=== PATIENT | male | born 1965 | race American Indian/Alaskan Native ===

== ENCOUNTER 2021-03-14 09:58 | Inpatient (IN) | payer SELFPAY ==
[2021-03-14] MEDS ORDERED: LORazepam 2 MG/ML VIAL IV ONE (10:05)
[2021-03-14] MEDS ORDERED: ALBUTEROL 2.5 MG/3 ML NEBU IH ONE (10:06)
[2021-03-14] MEDS ORDERED: IPRATROPIUM 0.02% NEBU 2.5 ML IH ONE (10:06)
[2021-03-14] MEDS ORDERED: MAGNESIUM SULFATE 2 GM/50 ML BAG IV ONE (10:06)
[2021-03-14] MEDS ORDERED: FUROSEMIDE 40 MG/4 ML INJ IV ONE (10:07)
--- NOTE | 2021-03-14 10:13 | Emergency Department Report ---
ED Shortness of Breath HPI - General Stated Complaint: RESPIRATORY DISTRESS Time Seen by Provider: 03/14/21 10:04 Source: patient, EMS Limitations: No Limitations - History of Present Illness Initial Comments: CC: shortness of breath HPI: This is a 55-year-old male with history of hypertension noncompliant medication presents with severe shortness of breath for several days. EMS was called. Severe work of breathing, noted tripod position per EMS. Oxygen saturation 57%. With nonrebreather oxygen sats improved to 91%. However patient had a "look of impending doom" due to paramedics. Patient became agitated and disoriented. He is now able to answer questions with oxygen in place. He is not vaccinated against COVID-19. He does not take any medication. His mother smokes cigarettes. He does not smoke cigarettes. He drinks alcohol daily. Patient received 125 mg of Solu-Medrol via EMS. MD Complaint: shortness of breath, cough -: Gradual, days(s) (3 days) Severity: severe Improves With: oxygen Known History Of: other (Untreated hypertension) Associated Symptoms: cough - Related Data Allergies Allergy/AdvReac Type Severity Reaction Status Date / Time No Known Allergies Allergy Unverified 03/14/21 10:11 ED Review of Systems ROS: Stated complaint: RESPIRATORY DISTRESS Other details as noted in HPI Comment: All other systems reviewed and negative Constitutional: malaise. denies: fever Respiratory: cough, shortness of breath, wheezing Cardiovascular: denies: chest pain Gastrointestinal: denies: abdominal pain, nausea, vomiting ED Past Medical Hx - Past Medical History Previous Medical History?: Yes Hx Hypertension: Yes - Surgical History Past Surgical History?: No - Family History Family history: hypertension - Social History Smoking Status: Never Smoker Substance Use Type: Alcohol ED Physical Exam - General General appearance: alert, in distress, other (Severe work of breathing, poor eye contact, accessory muscle use evident, abdominal retractions) - Head Head exam: Present: atraumatic, normocephalic - Eye Eye exam: Present: normal appearance - ENT ENT exam: Present: mucous membranes moist - Neck Neck exam: Present: normal inspection, full ROM. Absent: tenderness, meningismus - Respiratory Respiratory exam: Present: respiratory distress, rales, rhonchi, accessory muscle use, decreased breath sounds, prolonged expiratory - Cardiovascular Cardiovascular Exam: Present: normal rhythm, tachycardia, normal heart sounds. Absent: systolic murmur, diastolic murmur, rubs, gallop - GI/Abdominal GI/Abdominal exam: Present: soft, other (Abdominal retractions). Absent: distended, tenderness, guarding - Rectal Rectal exam: Present: deferred - Extremities Exam Extremities exam: Present: pedal edema, other (Hyperpigmentation lower legs) - Neurological Exam Neurological exam: Present: altered, other (Oriented to name only) - Psychiatric Psychiatric exam: Present: flat affect - Skin Skin exam: Present: pallor, other (Clammy) ED Course Vital Signs 03/14/21 03/14/21 03/14/21 10:04 10:08 10:16 Temperature 98.9 F Pulse Rate 105 H 107 H Pulse Rate [ Anterior Bilateral Throughout] Respiratory 41 H 24 Rate Respiratory Rate [Anterior Bilateral Throughout] Blood Pressure 179/92 Blood Pressure 178/88 [Right] O2 Sat by Pulse 97 99 Oximetry 03/14/21 03/14/21 03/14/21 10:18 10:20 10:22 Temperature Pulse Rate 105 H 104 H 103 H Pulse Rate [ Anterior Bilateral Throughout] Respiratory 19 18 39 H Rate Respiratory Rate [Anterior Bilateral Throughout] Blood Pressure 179/92 179/92 179/92 Blood Pressure [Right] O2 Sat by Pulse 99 99 98 Oximetry 03/14/21 03/14/21 03/14/21 10:24 10:26 10:28 Temperature Pulse Rate 105 H 104 H 106 H Pulse Rate [ Anterior Bilateral Throughout] Respiratory 26 H 22 23 Rate Respiratory Rate [Anterior Bilateral Throughout] Blood Pressure 179/92 179/92 179/92 Blood Pressure [Right] O2 Sat by Pulse 98 99 98 Oximetry 03/14/21 03/14/21 03/14/21 10:30 10:31 10:32 Temperature Pulse Rate 107 H 107 H 106 H Pulse Rate [ Anterior Bilateral Throughout] Respiratory 17 21 24 Rate Respiratory Rate [Anterior Bilateral Throughout] Blood Pressure 179/92 206/101 206/101 Blood Pressure [Right] O2 Sat by Pulse 98 97 98 Oximetry 03/14/21 03/14/21 03/14/21 10:34 10:35 10:36 Temperature Pulse Rate 107 H 108 H Pulse Rate [ 108 H Anterior Bilateral Throughout] Respiratory 14 25 H Rate Respiratory 34 H Rate [Anterior Bilateral Throughout] Blood Pressure 206/101 206/101 Blood Pressure [Right] O2 Sat by Pulse 97 98 Oximetry 03/14/21 03/14/21 03/14/21 10:38 10:40 10:42 Temperature Pulse Rate 108 H 108 H 109 H Pulse Rate [ Anterior Bilateral Throughout] Respiratory 16 14 17 Rate Respiratory Rate [Anterior Bilateral Throughout] Blood Pressure 206/101 206/101 206/101 Blood Pressure [Right] O2 Sat by Pulse 98 98 97 Oximetry 03/14/21 03/14/21 03/14/21 10:44 10:46 10:48 Temperature Pulse Rate 108 H 109 H 109 H Pulse Rate [ Anterior Bilateral Throughout] Respiratory 24 19 15 Rate Respiratory Rate [Anterior Bilateral Throughout] Blood Pressure 206/101 206/101 206/101 Blood Pressure [Right] O2 Sat by Pulse 97 97 97 Oximetry 03/14/21 03/14/21 03/14/21 10:50 10:52 10:54 Temperature Pulse Rate 107 H 108 H 108 H Pulse Rate [ Anterior Bilateral Throughout] Respiratory 13 16 19 Rate Respiratory Rate [Anterior Bilateral Throughout] Blood Pressure 206/101 206/101 206/101 Blood Pressure [Right] O2 Sat by Pulse 97 97 97 Oximetry 03/14/21 03/14/21 03/14/21 10:56 10:58 11:00 Temperature Pulse Rate 108 H 108 H 108 H Pulse Rate [ Anterior Bilateral Throughout] Respiratory 16 18 21 Rate Respiratory Rate [Anterior Bilateral Throughout] Blood Pressure 206/101 206/101 206/101 Blood Pressure [Right] O2 Sat by Pulse 97 97 97 Oximetry 03/14/21 03/14/21 03/14/21 11:01 11:02 11:04 Temperature Pulse Rate 107 H 109 H 108 H Pulse Rate [ Anterior Bilateral Throughout] Respiratory 20 13 19 Rate Respiratory Rate [Anterior Bilateral Throughout] Blood Pressure 209/99 209/99 209/99 Blood Pressure [Right] O2 Sat by Pulse 96 98 96 Oximetry 03/14/21 03/14/21 03/14/21 11:06 11:08 11:10 Temperature Pulse Rate 108 H 109 H 108 H Pulse Rate [ Anterior Bilateral Throughout] Respiratory 15 24 15 Rate Respiratory Rate [Anterior Bilateral Throughout] Blood Pressure 209/99 209/99 209/99 Blood Pressure [Right] O2 Sat by Pulse 97 97 97 Oximetry 03/14/21 03/14/21 03/14/21 11:12 11:14 11:16 Temperature Pulse Rate 107 H 109 H 108 H Pulse Rate [ Anterior Bilateral Throughout] Respiratory 18 14 23 Rate Respiratory Rate [Anterior Bilateral Throughout] Blood Pressure 209/99 209/99 209/99 Blood Pressure [Right] O2 Sat by Pulse 98 97 98 Oximetry 03/14/21 03/14/21 03/14/21 11:18 11:20 11:22 Temperature Pulse Rate 92 H 90 90 Pulse Rate [ Anterior Bilateral Throughout] Respiratory 17 17 16 Rate Respiratory Rate [Anterior Bilateral Throughout] Blood Pressure 209/99 209/99 209/99 Blood Pressure [Right] O2 Sat by Pulse 97 97 97 Oximetry 03/14/21 03/14/21 03/14/21 11:24 11:26 11:28 Temperature Pulse Rate 90 89 90 Pulse Rate [ Anterior Bilateral Throughout] Respiratory 20 21 20 Rate Respiratory Rate [Anterior Bilateral Throughout] Blood Pressure 209/99 209/99 209/99 Blood Pressure [Right] O2 Sat by Pulse 97 97 97 Oximetry 03/14/21 03/14/21 03/14/21 11:30 11:31 11:32 Temperature Pulse Rate 89 89 90 Pulse Rate [ Anterior Bilateral Throughout] Respiratory 21 22 22 Rate Respiratory Rate [Anterior Bilateral Throughout] Blood Pressure 209/99 134/86 134/86 Blood Pressure [Right] O2 Sat by Pulse 97 96 96 Oximetry 03/14/21 03/14/21 11:34 12:36 Temperature Pulse Rate 89 77 Pulse Rate [ Anterior Bilateral Throughout] Respiratory 20 Rate Respiratory Rate [Anterior Bilateral Throughout] Blood Pressure 134/86 91/52 Blood Pressure [Right] O2 Sat by Pulse 96 100 Oximetry - Reevaluation(s) Reevaluation #1: 03/14/21 12:24 Patient received 2 L normal saline bolus for hypotension suspect volume contraction and iatrogenic effect of labetalol. Blood pressure normalized after bolus. I do not suspect septic shock. patient was actually quite hypertensive on arrival. Reevaluation #2: 03/14/21 13:32 I was called to the bedside for severe hypotension. I immediately ordered dopamine. I asked nurse to prepare for CVL insertion. Reevaluation #3: 03/14/21 13:32 Second ABG shows improvement. pH 7.2, PCO2 71, PO2 97 with persistent respiratory acidosis which is improving My hospitalist colleague Dr. Kang placed right IJ CVL for persistent hypotension. - ABG Interpretation Ph: 6.99 PCO2: 158 PO2: 148 Interpretation: respiratory acidosis - Intubation Time Out Performed: Yes Sedative: Etomidate Mg Given: 20 Mg Given: 2,000 Laryngoscope: Marc Size: 3 ET Tube Size: 7.5 Other Airway Intervention: Video laryngoscopy Tube Secured Depth (cm): 24 Tube Secured Location: lips Tube Placement Confirmation: visualized tube passing t Patient Tolerated Procedure: well Intubation Complications: none ED Medical Decision Making - Lab Data Result diagrams: 03/14/21 10:08 03/14/21 10:54 - EKG Data -: EKG Interpreted by Me EKG shows normal: sinus rhythm Rate: tachycardia - EKG Data 03/14/21 10:27 EKG obtained 0959 EKG interpreted by sc Sinus tachycardia rate 100 bpm abnormal axis no ST elevation nonspecific T wave pattern normal intervals - Radiology Data Radiology results: report reviewed Patient Name: JUSTIN MARTINS Gender: Male Date of : 1965 Referring Provider: PAWEL PEOPLES Organization: [facility] Accession Number: [id number] Requested Date: March 14, 2021 10:05 Report Status: Final Requested Procedure: 1 Procedure Description: XR chest 1V ap Modality: XR Findings Reporting MD: Jay Johnston Dictation Time: March 14, 2021 09:35 [place] Spreader: Not available [place] Date: CHEST 1 VIEW INDICATION: Dyspnea. COMPARISON: None FINDINGS: SUPPORT DEVICES: None. HEART: Cardiomegaly. LUNGS/PLEURA: Mild patchy multifocal airspace disease. ADDITIONAL FINDINGS: None. IMPRESSION: 1. Lung findings as above. Signer Name: Jay Johnston MD Signed: 03/14/2021 9:35 AM Workstation Name: [id number] Patient Name: JUSTIN MARTINS Gender: Male Date of : 1965 Referring Provider: PAWEL PEOPLES Organization: [facility] Accession Number: [id number] Requested Date: March 14, 2021 12:02 Report Status: Final Requested Procedure: 1 Procedure Description: XR chest 1V ap Modality: XR Findings Reporting MD: Russell Robbins Dictation Time: March 14, 2021 11:46 [place] Spreader: Not available [place] Date: CHEST 1 VIEW 03/14/2021 12:30 PM INDICATION / CLINICAL INFORMATION: ETT placement. COMPARISON: Chest radiograph from earlier in the day FINDINGS: SUPPORT DEVICES: There is an endotracheal tube which terminates 2.0 cm from the claudia. There is an enteric tube which terminates distal to the field of view and below the diaphragm. HEART / MEDIASTINUM: No significant abnormality. LUNGS / PLEURA: Redemonstrated not significantly changed airspace opacities. No pneumothorax. ADDITIONAL FINDINGS: No significant additional findings. IMPRESSION: 1. Endotracheal tube in expected position. Signer Name: Russell Robbins DO Signed: 03/14/2021 11:46 AM Workstation Name: [id number] Patient Name: JUSTIN MARTINS Gender: Male Date of : 1965 Referring Provider: PAWEL PEOPLES Organization: [facility] Accession Number: [id number] Requested Date: March 14, 2021 12:18 Report Status: Final Requested Procedure: 1 Procedure Description: XR abdomen 1V ap Modality: XR Findings Reporting MD: Russell Robbins Dictation Time: March 14, 2021 11:47 [place] Spreader: Not available [place] Date: ABDOMEN 1 VIEW 03/14/2021 INDICATION / CLINICAL INFORMATION: ogt. COMPARISON: Chest radiograph from earlier in the day FINDINGS: TUBES / LINES: Enteric tube terminates within the stomach BOWEL GAS PATTERN: No significant abnormality. FREE AIR / EXTRALUMINAL GAS: None seen. ADDITIONAL FINDINGS: Scattered airspace opacities appear unchanged. IMPRESSION: 1. Enteric tube terminating within the stomach. Signer Name: Russell Robbins DO Signed: 03/14/2021 11:47 AM Workstation Name: [id number] - Medical Decision Making Acute respiratory failure hypoxia with delayed sequence intubation. BiPAP allowed adequate oxygenation. Normalization of vital signs. ABG revealed severe respiratory acidosis. Multifocal pneumonia suspected COVID-19 infection with profound hypoxia. Broad-spectrum antibiotics Zosyn vancomycin ordered to cover possible bacterial pneumonia. Patient received IV steroids. EMS. Ngoc ent received continuous nebulizer therapy albuterol and treatment prior to intubation. Admitted to CCU. - Differential Diagnosis Congestive heart failure Critical Care Time: Yes Critical care time in (mins) excluding proc time.: 40 Critical care attestation.: If time is entered above; I have spent that time in minutes in the direct care of this critically ill patient, excluding procedure time. 40 minutes of critical care time excluding procedures were used in the care of the patient. I came immediately to the bedside upon patient's arrival. I obtained history from EMS at the bedside. I discussed treatment plan with the nursing team members. I reviewed electronic record. Patient required multiple interventions and reassessments. ED Disposition Clinical Impression: Acute respiratory failure with hypoxia and hypercapnia, Multifocal pneumonia, Suspected COVID-19 virus infection Disposition: ADMITTED INPATIENT Is pt being admited?: Yes Does the pt Need Aspirin: No Condition: Critical
--- NOTE | 2021-03-14 10:39 | XRay Report ---
CHEST 1 VIEW INDICATION: Dyspnea. COMPARISON: None FINDINGS: SUPPORT DEVICES: None. HEART: Cardiomegaly. LUNGS/PLEURA: Mild patchy multifocal airspace disease. ADDITIONAL FINDINGS: None. IMPRESSION: 1. Lung findings as above. Signer Name: Jay Johnston MD Signed: 03/14/2021 10:35 AM Workstation Name: [id number]
[2021-03-14 10:49] LABS: Eosinophils % (Auto) 0.1 % (0.0-4.3); Hematocrit 48.5 % (35.5-45.6); Hemoglobin 14.2 gm/dl (11.8-15.2); Lymphocytes # (Auto) 1.1 K/mm3 (1.2-5.4); Lymphocytes % (Auto) 9.5 % (13.4-35.0); Mean Corpuscular HGB Conc 29 % (32-34); Mean Corpuscular Volume 73 fl (84-94); Monocytes # (Auto) 1.3 K/mm3 (0.0-0.8); Monocytes % (Auto) 11.4 % (0.0-7.3); Platelet Count 212 K/mm3 (140-440); Red Blood Count 6.66 M/mm3 (3.65-5.03)
[2021-03-14 10:55] LABS: Albumin 3.8 g/dL (3.9-5); BUN/Creatinine Ratio 26; Blood Urea Nitrogen 37 mg/dL (9-20); Calcium 8.1 mg/dL (8.4-10.2); Hemolysis Index 6
[2021-03-14 11:09] LABS: Alanine Aminotransferase 1404 units/L (7-56)
[2021-03-14 11:33] LABS: C-Reactive Protein 7.6 mg/dL (0.00-1.30)
[2021-03-14 11:37] LABS: ABG Base Excess 0.8 mmol/L (-2.0-3.0); ABG HCO3 37.6 mmol/L (20.0-26.0); ABG Methemoglobin 0.7 % (0.0-1.5); ABG Oxygen Saturation 97.6 % (95.0-99.0); ABG PCO2 158.2 mm Hg; ABG PO2 148.4 mm Hg (80.0-90.0)
[2021-03-14 11:40] LABS: ABG PH 6.994 pH Units (7.350-7.450)
[2021-03-14] MEDS ORDERED: SUCCINYLCHOLINE CHLORIDE 200 MG/10 ML INJ MDV ONE (11:43)
[2021-03-14] MEDS ORDERED: ETOMIDATE 20 MG/10 ML INJ IV ONE (11:45)
[2021-03-14] MEDS ORDERED: MIDAZOLAM 5 MG/5 ML INJ MDV IV ONE (11:57)
[2021-03-14] MEDS ORDERED: fentaNYL DRIP Premix 2,000 MCG/100 ML BAG IV ONE ×2 (11:58→17:01)
[2021-03-14] MEDS ORDERED: MIDAZOLAM 2 MG/2 ML INJ IV PRN ×2 (12:02→21:21)
[2021-03-14] MEDS ORDERED: fentaNYL 100 MCG/2 ML INJ IV PRN ×2 (12:02→21:23)
[2021-03-14] MEDS ORDERED: LIP THERAPY VASELINE TP PRN (12:02)
[2021-03-14] MEDS ORDERED: MINERAL OIL/PETROLATUM, WHITE OPHTH OINT 3.5 GM OU PRN (12:02)
--- NOTE | 2021-03-14 12:02 | History and Physical Report ---
History of Present Illness Chief complaint: I cannot breathe History of present illness: 55 YO Male with HTN, Obesity Hypoventilation Syndrome, ETOH Dependence, Medication Noncompliance lost to outpatient follow-up presents to ED for evaluation. Patient is intubated and on ventilatory support at time of my evaluation is unable to provide history. Patient history taken from EMS staff, ED staff, as well as from the patient upon arrival. Patient reports "I cannot breathe". EMS was notified and upon arrival the patient was found to be in distress and subsequent transported to [facility] for further care and evaluation of the aforementioned symptoms. The patient was seen and evaluated in the emergency department. All lab and imaging studies reviewed. Patient was found to be in able to complete sentences due to shortness of breath, tripoding, using accessory muscles to breathe. The patient was found to have a pulse oximetry of 57% on room air which is consistent with acute hypoxemic respiratory failure. Patient placed on nonrebreather mask with mild improvement in symptoms. Patient subsequently intubated and placed on ventilatory support. Chest x-ray revealed bilateral pneumonia complicated by sepsis, acute kidney injury. Patient admitted to ICU and initiated on sepsis protocol, pneumonia protocol, as well as coronavirus protocol. Patient found to have alcohol dependence and also initiated on CIWA protocol. Patient found to have poor prognosis. No prior admission for review. No medication listed at time of admission reconciliation. Advanced care planning conducted in ED. No further history is obtainable. Past History Past Medical History: hypertension, other (See HPI) Past Surgical History: No surgical history, Other (Reviewed) Social history: single, alcohol abuse Family history: diabetes, hypertension Medications and Allergies Allergies Allergy/AdvReac Type Severity Reaction Status Date / Time No Known Allergies Allergy Unverified 03/14/21 10:11 Review of Systems ROS unobtainable: due to endotracheal tube, due to mental status Exam - Constitutional Vitals: Temp Pulse Resp BP Pulse Ox 98.9 F 89 20 134/86 96 03/14/21 10:08 03/14/21 11:34 03/14/21 11:34 03/14/21 11:34 03/14/21 11:34 General appearance: Present: severe distress - EENT Eyes: Present: miosis ENT: hearing decreased - Neck Neck: Present: supple - Respiratory Respiratory effort: labored, accessory muscle use, stridor Respiratory: bilateral: diminished, rhonchi - Cardiovascular Rhythm: other (Tachycardia) Heart Sounds: Present: S1 & S2. Absent: rub, click - Extremities Extremity abnormal: edema Peripheral Pulses: abnormal (Capillary refill greater than 3.5 seconds) - Abdominal General gastrointestinal: Present: soft, non-tender, non-distended, normal bowel sounds Male genitourinary: Present: normal - Integumentary Integumentary: Present: warm, dry, clammy, decreased turgor - Musculoskeletal Musculoskeletal: generalized weakness - Psychiatric Psychiatric: no appropriate mood/affect, no intact judgment & insight, no memory intact - Neurologic Neurologic: CNII-XII intact, no focal deficits, moves all extremities, no gait normal HEART Score - HEART Score Troponin: Troponin T 0.029 ng/mL (0.00-0.029) 03/14/21 10:08 Results - Labs CBC & Chem 7: 03/14/21 10:08 03/14/21 10:54 Labs: Abnormal lab results 03/14/21 03/14/21 03/14/21 Range/Units 10:02 10:08 10:08 WBC 11.6 H (4.5-11.0) K/mm3 RBC 6.66 H (3.65-5.03) M/mm3 Hct 48.5 H (35.5-45.6) % MCV 73 L (84-94) fl MCH 21 L (28-32) pg MCHC 29 L (32-34) % RDW 19.0 H (13.2-15.2) % Lymph % (Auto) 9.5 L (13.4-35.0) % [place] % (Auto) 11.4 H (0.0-7.3) % Lymph # (Auto) 1.1 L (1.2-5.4) K/mm3 [place] # (Auto) 1.3 H (0.0-0.8) K/mm3 Seg Neutrophils % 79.0 H (40.0-70.0) % Seg Neutrophils # 9.2 H (1.8-7.7) K/mm3 D-Dimer (0-234) ng/mlDDU ABG pH (7.350-7.450) pH Units ABG pO2 (80.0-90.0) mm Hg ABG HCO3 (20.0-26.0) mmol/L Oxyhemoglobin (95.0-99.0) % Potassium 5.8 H (3.6-5.0) mmol/L BUN 37 H (9-20) mg/dL Creatinine 1.4 H (0.8-1.3) mg/dL Glucose 133 H (75-100) mg/dL POC Glucose 128 H (70-105) mg/dL Calcium 8.1 L (8.4-10.2) mg/dL AST 1574 H (5-40) units/L ALT 1404 H (7-56) units/L Lactate Dehydrogenase (91-180) units/L C-Reactive Protein (0.00-1.30) mg/dL NT-Pro-B Natriuret Pep (0-900) pg/mL Albumin 3.8 L (3.9-5) g/dL 03/14/21 03/14/21 03/14/21 Range/Units 10:08 10:08 10:54 WBC (4.5-11.0) K/mm3 RBC (3.65-5.03) M/mm3 Hct (35.5-45.6) % MCV (84-94) fl MCH (28-32) pg MCHC (32-34) % RDW (13.2-15.2) % Lymph % (Auto) (13.4-35.0) % [place] % (Auto) (0.0-7.3) % Lymph # (Auto) (1.2-5.4) K/mm3 [place] # (Auto) (0.0-0.8) K/mm3 Seg Neutrophils % (40.0-70.0) % Seg Neutrophils # (1.8-7.7) K/mm3 D-Dimer 1938.22 H (0-234) ng/mlDDU ABG pH (7.350-7.450) pH Units ABG pO2 (80.0-90.0) mm Hg ABG HCO3 (20.0-26.0) mmol/L Oxyhemoglobin (95.0-99.0) % Potassium (3.6-5.0) mmol/L BUN (9-20) mg/dL Creatinine (0.8-1.3) mg/dL Glucose 162 H (75-100) mg/dL POC Glucose (70-105) mg/dL Calcium (8.4-10.2) mg/dL AST (5-40) units/L ALT (7-56) units/L Lactate Dehydrogenase 1456 H (91-180) units/L C-Reactive Protein 7.60 H (0.00-1.30) mg/dL NT-Pro-B Natriuret Pep 1073 H (0-900) pg/mL Albumin (3.9-5) g/dL 03/14/21 Range/Units 11:10 WBC (4.5-11.0) K/mm3 RBC (3.65-5.03) M/mm3 Hct (35.5-45.6) % MCV (84-94) fl MCH (28-32) pg MCHC (32-34) % RDW (13.2-15.2) % Lymph % (Auto) (13.4-35.0) % [place] % (Auto) (0.0-7.3) % Lymph # (Auto) (1.2-5.4) K/mm3 [place] # (Auto) (0.0-0.8) K/mm3 Seg Neutrophils % (40.0-70.0) % Seg Neutrophils # (1.8-7.7) K/mm3 D-Dimer (0-234) ng/mlDDU ABG pH 6.994 L* (7.350-7.450) pH Units ABG pO2 148.4 H (80.0-90.0) mm Hg ABG HCO3 37.6 H (20.0-26.0) mmol/L Oxyhemoglobin 94.9 L (95.0-99.0) % Potassium (3.6-5.0) mmol/L BUN (9-20) mg/dL Creatinine (0.8-1.3) mg/dL Glucose (75-100) mg/dL POC Glucose (70-105) mg/dL Calcium (8.4-10.2) mg/dL AST (5-40) units/L ALT (7-56) units/L Lactate Dehydrogenase (91-180) units/L C-Reactive Protein (0.00-1.30) mg/dL NT-Pro-B Natriuret Pep (0-900) pg/mL Albumin (3.9-5) g/dL Assessment and Plan - Patient Problems (1) Sepsis Current Visit: Yes Status: Acute Qualifiers: Sepsis acute organ dysfunction status: with acute organ dysfunction Severe sepsis acute organ dysfunction type: acute respiratory failure Acute respiratory failure type: with hypoxia Plan to address problem: Sepsis protocol: CBC, CMP, chest x-ray, urinalysis, IV antibiotic therapy, IV fluid resuscitation therapy, serial lactic acid level, monitor urine output every shift, maintain mean arterial pressure greater than or equal to 65, blood culture. The high probability of a clinically significant, sudden or life threatening deterioration of the [pulmonary, neuro, cardiac, renal, infectious disease] system(s) required my full and direct attention, intervention and personal management. The aggregate critical care time was [90] minutes. This time is in addition to time spent performing reported procedures but includes the fol lowing: [x] Data Review and interpretation [x] Patient assessment and monitoring of vital signs [x] Documentation [x] Medication orders and management (2) Acute respiratory failure with hypoxia and hypercapnia Current Visit: Yes Status: Acute Plan to address problem: Chest x-ray, wean vent as tolerated, spontaneous breathing trial daily, sedation holiday, pulmonary toilet, prone positioning while in bed as per nursing capability. (3) Alcohol dependence Current Visit: Yes Status: Acute Qualifiers: Substance use status: uncomplicated Qualified Code(s): F10.20 - Alcohol dependence, uncomplicated Plan to address problem: CIWA protocol, banana bag, supportive care. (4) Multifocal pneumonia Current Visit: Yes Status: Acute Plan to address problem: Pneumonia protocol: Chest x-ray, CBC, CMP, IV antibiotic therapy, blood culture, (5) Suspected COVID-19 virus infection Current Visit: Yes Status: Acute Plan to address problem: Coronavirus protocol: IV antibiotic therapy, IV steroid therapy, continue ventilatory support and wean vent as tolerated, vitamin C therapy, vitamin D therapy, zinc therapy, prophylactic anticoagulation (6) Obesity hypoventilation syndrome Current Visit: Yes Status: Acute Plan to address problem: Balanced diet, increase physical activity discharge, outpatient pulmonary follow-up for sleep study. (7) DVT prophylaxis Current Visit: Yes Status: Acute Plan to address problem: SCD to bilateral lower extremities while in bed, prophylactic anticoagulation (8) Advance care planning Current Visit: Yes Status: Acute Plan to address problem: Disease education conducted, care plan discussed, diagnoses discussed, patient is full code, patient has poor prognosis, +30 minutes.
[2021-03-14] MEDS ORDERED: ALBUTEROL 2.5 MG/3 ML NEBU IH PRN (12:04)
[2021-03-14] MEDS ORDERED: MORPHINE 2 MG/1 ML INJ IV PRN (12:04)
[2021-03-14] MEDS ORDERED: HYDROmorphone 1 MG/1 ML INJ IV PRN ×2 (12:04→12:09)
[2021-03-14] MEDS ORDERED: SODIUM CHLORIDE 0.9% 1000 ML 1,000 ML IV ONE ×4 (12:04→12:59)
[2021-03-14] MEDS ORDERED: SODIUM CHLORIDE 0.9% 1000 ML 2,000 ML ONE (12:05)
[2021-03-14] MEDS ORDERED: CEFEPIME/NS 2 GM/100 ML 2 GM/100 ML BAG IV ONE (12:06)
[2021-03-14] MEDS ORDERED: ACETAMINOPHEN 325 MG TAB PO PRN (12:09)
--- NOTE | 2021-03-14 12:51 | XRay Report ---
CHEST 1 VIEW 03/14/2021 12:30 PM INDICATION / CLINICAL INFORMATION: ETT placement. COMPARISON: Chest radiograph from earlier in the day FINDINGS: SUPPORT DEVICES: There is an endotracheal tube which terminates 2.0 cm from the claudia. There is an e nteric tube which terminates distal to the field of view and below the diaphragm. HEART / MEDIASTINUM: No significant abnormality. LUNGS / PLEURA: Redemonstrated not significantly changed airspace opacities. No pneumothorax. ADDITIONAL FINDINGS: No significant additional findings. IMPRESSION: 1. Endotracheal tube in expected position. Signer Name: Russell Robbins DO Signed: 03/14/2021 12:46 PM Workstation Name: [id number]
--- NOTE | 2021-03-14 12:51 | XRay Report ---
ABDOMEN 1 VIEW 03/14/2021 INDICATION / CLINICAL INFORMATION: ogt. COMPARISON: Chest radiograph from earlier in the day FINDINGS: TUBES / LINES: Enteric tube terminates within the stomach BOWEL GAS PATTERN: No significant abnormality. FREE AIR / EXTRALUMINAL GAS: None seen. ADDITIONAL FINDINGS: Scattered airspace opacities appear unchanged. IMPRESSION: 1. Enteric tube terminating within the stomach. Signer Name: Russell Robbins DO Signed: 03/14/2021 12:47 PM Workstation Name: [id number]
[2021-03-14] MEDS: fentaNYL DRIP Premix 2,000 MCG/100 ML BAG IV SCH ×3 (12:55→21:40)
[2021-03-14] MEDS ORDERED: DOPamine/D5W 800 MG/250 ML 800 MG/250 ML BAG IV ONE ×2 (12:58→12:59)
[2021-03-14] MEDS ORDERED: THIAMINE 100 MG, FOLIC ACID 1 MG, MULTIPLE VITAMIN INJ, ADULT 10 ML in SODIUM CHLORIDE ... IV ONE (13:00)
[2021-03-14] MEDS ORDERED: VANCOMYCIN PHARMACY TO DOSE IV SCH (13:00)
[2021-03-14] MEDS ORDERED: VANCOMYCIN 2,000 MG in SODIUM CHLORIDE 0.9% 500 ML 500 ML IV ONE (13:00)
[2021-03-14] MEDS ORDERED: MIDAZOLAM 100 MG in SODIUM CHLORIDE 0.9% 80 ML IV SCH (13:00)
[2021-03-14] MEDS ORDERED: SODIUM CHLORIDE 0.9% 1000 ML IV SOLN IV ONE (13:00)
[2021-03-14 13:11] LABS: ABG Base Excess -0.7 mmol/L (-2.0-3.0); ABG HCO3 28.6 mmol/L (20.0-26.0); ABG Methemoglobin 0.7 % (0.0-1.5); ABG Oxygen Saturation 96.4 % (95.0-99.0); ABG PCO2 71.8 mm Hg; ABG PH 7.219 pH Units (7.350-7.450); ABG PO2 97.8 mm Hg (80.0-90.0)
[2021-03-14] MEDS: FAMOTIDINE 20 MG/2 ML INJ IV SCH ×2 (13:36→21:46)
[2021-03-14] MEDS: cefTRIAXone/NS 2 GM/100 ML 2 GM/100 ML BAG IV SCH (13:51)
[2021-03-14] MEDS: SENNOSIDES/DOCUSATE SODIUM 8.6/50 MG TAB FEEDTUBE SCH ×2 (13:52→21:43)
[2021-03-14] MEDS: AZITHROMYCIN/NS 500 MG/250 ML 500 MG/250 ML BAG IV SCH (13:52)
--- NOTE | 2021-03-14 13:53 | Procedure Note ---
Date of procedure: 03/14/21 Pre-op diagnosis: sepsis Post-op diagnosis: same Procedure: Right internal jugular vein triple-lumen catheter placement under ultrasound guidance The patient was prepped and draped in the usual sterile fashion. A timeout was taken to verify the correct patient, correct procedure, and the correct operative site. The Seldinger technique was utilized to access the right internal jugular vein without difficulty. Local anesthesia with lidocaine 1% was utilized to anesthetize the skin. Ultrasound was used to localize the right internal jugular vein and a seeker needle was used under ultrasound guidance to access the right internal jugular vein without difficulty. A guidewire was then advanced to the right internal jugular vein and the seeker needle removed over the guidewire. A scalpel was used to incise the skin at the insertion site. A dilator was then passed over the guidewire into the right internal jugular vein and subsequently removed. A preflushed triple-lumen catheter was then advanced into the right internal jugular vein over the guidewire and the guidewire subsequently removed. The triple-lumen was sewn in place with 3-0 nylon suture. A Biopatch was placed at the insertion site. All 3 ports flush and draw with ease. Specimens none complications none blood loss minimal. Postoperative chest x-ray reveals central line in good position without evidence of pneumothorax. Estimated blood loss: minimal Pathology: none Condition: critical Disposition: ICU
--- NOTE | 2021-03-14 14:07 | XRay Report ---
CHEST 1 VIEW 03/14/2021 1:00 PM INDICATION / CLINICAL INFORMATION: Central line placement. COMPARISON: 03/14/2021 FINDINGS: SUPPORT DEVICES: Interval placement of a right IJ central venous catheter with the tip in the upper S VC. Unchanged positioning of endotracheal tube. Unchanged positioning of enteric tube. HEART / MEDIASTINUM: Stable. LUNGS / PLEURA: No significant change in airspace opacities No pneumothorax. ADDITIONAL FINDINGS: No significant additional findings. IMPRESSION: 1. Central line in expected position. Signer Name: Russell Robbins DO Signed: 03/14/2021 2:02 PM Workstation Name: [id number]
[2021-03-14] MEDS: methylPREDNISolone Sod Succinate 40 MG/1 ML INJ IV SCH ×2 (14:27→21:46)
[2021-03-14 15:20] LABS: Bilirubin,Urine Negative (Negative); Blood,Urine Small (Negative); Color,Urine Straw (Yellow)
[2021-03-14] MEDS: ZINC SULFATE 220 MG CAP PO SCH (21:43)
[2021-03-14] MEDS: ASCORBIC ACID 500 MG TAB PO SCH (21:43)
[2021-03-14] MEDS: HEPARIN 5,000 UNIT/1 ML VIAL SUB-Q SCH (21:46)
[2021-03-15] MEDS ORDERED: VANCOMYCIN/NS 1 GM/250 ML 1 GM/250 ML BAG IV SCH (01:00)
--- NOTE | 2021-03-15 04:12 | XRay Report ---
CHEST 1 VIEW 03/15/2021 3:26 AM INDICATION / CLINICAL INFORMATION: follow up respiratory failure. COMPARISON: 03/14/21 FINDINGS: SUPPORT DEVICES: Unchanged. HEART / MEDIASTINUM: Stable. LUNGS / PLEURA: Patchy bilateral pulmonary opacities are unchanged. No pneumothorax. ADDITIONAL FINDINGS: No significant additional findings. IMPRESSION: 1. No significant change. Signer Name: Elise Kong MD Signed: 03/15/2021 4:07 AM Workstation Name: [id number]
[2021-03-15] MEDS: methylPREDNISolone Sod Succinate 40 MG/1 ML INJ IV SCH ×3 (05:40→21:46)
[2021-03-15 08:13] LABS: Basophils % (Auto) 0.1 % (0.0-1.8); Lymphocytes # (Auto) 0.5 K/mm3 (1.2-5.4); Lymphocytes % (Auto) 4.4 % (13.4-35.0); Mean Corpuscular HGB Conc 30 % (32-34); Mean Corpuscular Volume 71 fl (84-94); Monocytes # (Auto) 0.7 K/mm3 (0.0-0.8); Monocytes % (Auto) 6.5 % (0.0-7.3); Red Blood Count 6.73 M/mm3 (3.65-5.03); Red Cell Distribution Width 18.2 % (13.2-15.2)
[2021-03-15] MEDS: LORazepam 2 MG/ML VIAL IV PRN (08:13)
[2021-03-15] MEDS: MIDAZOLAM 100 MG in SODIUM CHLORIDE 0.9% 80 ML IV SCH (08:13)
[2021-03-15] MEDS: fentaNYL DRIP Premix 2,000 MCG/100 ML BAG IV SCH ×2 (08:13→19:07)
[2021-03-15 08:14] LABS: Hematocrit 47.7 % (35.5-45.6); Hemoglobin 14.1 gm/dl (11.8-15.2)
[2021-03-15 08:15] LABS: Platelet Count 159 K/mm3 (140-440)
[2021-03-15 08:32] LABS: BUN/Creatinine Ratio 27; Blood Urea Nitrogen 27 mg/dL (9-20); Calcium 8.1 mg/dL (8.4-10.2); Hemolysis Index 22
--- NOTE | 2021-03-15 08:59 | Consultation ---
History of Present Illness History of present illness: This is a 55 yo male with hx of OHS who is admitted with shortness of breath and hypoxia. As per records, he hasbeen noncompliant w meds. He came in the er w c/o of sob and was found to have sat of 57%. He was intubated. He is presently on vent sedated on versed and fentanyl.. Also on dopamine. He ia also reported to have hx of alcohol abuse He was noted to have bilat pneumonia. Covid and pneumonia protocol were started as per hosp. note Past History Past Medical History: hypertension, other (ohs) Past Surgical History: No surgical history, Other (Reviewed) Social history: single, alcohol abuse Family history: diabetes, hypertension Medications and Allergies Allergies Allergy/AdvReac Type Severity Reaction Status Date / Time No Known Allergies Allergy Verified 03/14/21 17:55 Active Meds: Active Medications Acetaminophen (Acetaminophen 325 Mg Tab) 650 mg PO Q6H PRN PRN Reason: Pain MILD(1-3)/Fever >100.5/BAUMAN Albuterol (Albuterol 2.5 Mg/3 Ml Nebu) 2.5 mg IH Q3H PRN PRN Reason: Shortness Of Breath Ascorbic Acid (Ascorbic Acid 500 Mg Tab) 500 mg PO BID [facility] Last Admin: 03/14/21 21:43 Dose: Not Given Documented by: Cholecalciferol (Cholecalciferol (Vit D3) 1000 Unit (25 Mcg) Tab) 1,000 unit PO DAILY [facility] Famotidine (Famotidine 20 Mg/2 Ml Inj) 20 mg IV BID [facility] Last Admin: 03/14/21 21:46 Dose: 20 mg Documented by: Fentanyl (Fentanyl 100 Mcg/2 Ml Inj) 50 mcg IV Q10MIN PRN PRN Reason: ANALGESIA Heparin Sodium (Porcine) (Heparin 5,000 Unit/1 Ml Vial) 5,000 unit SUB-Q Q12HR [facility] Last Admin: 03/14/21 21:46 Dose: 5,000 unit Documented by: Hydrophilic Ointment (Lip Therapy Vaseline) 1 applic TP Q2HR PRN PRN Reason: Dry Lips Azithromycin (Zithromax/Ns) 500 mg in 250 mls @ 250 mls/hr IV Q24H [facility]; Protocol Last Admin: 03/14/21 13:52 Dose: Not Given Documented by: Ceftriaxone Sodium (Rocephin/Ns 2 Gm/100 Ml) 2 gm in 100 mls @ 200 mls/hr IV Q24H [facility]; Protocol Last Admin: 03/14/21 13:51 Dose: Not Given Documented by: Vancomycin HCl (Vancomycin/Ns 1 Gm/250 Ml) 1 gm in 250 mls @ 166.667 mls/hr IV Q12H [facility] Last Admin: 03/15/21 03:33 Dose: 166.667 mls/hr Documented by: Midazolam HCl 100 mg/ Sodium (Chloride) 100 mls @ 1 mls/hr IV TITR [facility]; Prot ocol Last Admin: 03/15/21 08:13 Dose: 4 mg/hr, 4 mls/hr Documented by: Fentanyl Citrate (Fentanyl Drip Premix) 2,000 mcg in 100 mls @ 5.465 mls/hr IV TITR [facility]; Protocol Last Admin: 03/15/21 08:13 Dose: 1 mcg/kg/hr, 5.465 mls/hr Documented by: Lorazepam (Lorazepam 2 Mg/Ml Vial) 2 mg IV Q1H PRN PRN Reason: CIWA-Ar 8-15 Last Admin: 03/15/21 08:13 Dose: 2 mg Documented by: Methylprednisolone Sodium Succinate (Methylprednisolone Sod Succinate 40 Mg/1 Ml Inj) 40 mg IV Q8H [facility] Last Admin: 03/15/21 05:40 Dose: 40 mg Documented by: Midazolam HCl (Midazolam 2 Mg/2 Ml Inj) 2 mg IV Q10MIN PRN PRN Reason: Sedation Multi-Ingred Cream/Lotion/Oil/Oint (Mineral Oil/Petrolatum, White Ophth Oint 3.5 Gm) 1 applic OU Q4HR PRN PRN Reason: Dry Eye(s) Senna/Docusate Sodium (Sennosides/Docusate Sodium 8.6/50 Mg Tab) 1 tab FEEDTUBE BID [facility] Last Admin: 03/14/21 21:43 Dose: Not Given Documented by: Sodium Chloride (Sodium Chloride 0.9% 10 Ml Flush Syringe) 10 ml IV BID [facility] Last Admin: 03/14/21 21:51 Dose: 10 ml Documented by: Sodium Chloride (Sodium Chloride 0.9% 10 Ml Flush Syringe) 10 ml IV PRN PRN PRN Reason: LINE FLUSH Zinc Sulfate (Zinc Sulfate 220 Mg Cap) 220 mg PO BID [facility] Last Admin: 03/14/21 21:43 Dose: Not Given Documented by: Review of Systems ROS unobtainable: due to endotracheal tube Physical Examination Vital signs: Vital Signs Pulse Resp Pulse Ox 105 H 41 H 97 03/14/21 10:04 03/14/21 10:04 03/14/21 10:04 General appearance: other (on vent AC 75% r 24 tv 500 p 8 mv 12) Results - Laboratory Findings CBC and BMP: 03/15/21 07:30 03/15/21 07:30 ABG ABG pH 7.555 (7.320-7.450) H 03/15/21 03:07 POC ABG pCO2 37.2 mmHg (32.0-48.0) 03/15/21 03:07 ABG pCO2 71.8 mm Hg 03/14/21 12:10 POC ABG pO2 92.9 mmHg (83-108) 03/15/21 03:07 ABG pO2 97.8 mm Hg (80.0-90.0) H 03/14/21 12:10 POC ABG HCO3 32.2 03/15/21 03:07 ABG O2 Saturation 98.0 (0-100) 03/15/21 03:07 PT/INR, D-dimer D-Dimer 1938.22 ng/mlDDU (0-234) H 03/14/21 10:08 Abnormal lab findings: Abnormal Labs 03/14/21 03/14/21 03/14/21 10:02 10:08 10:08 WBC 11.6 H RBC 6.66 H Hct 48.5 H MCV 73 L MCH 21 L MCHC 29 L RDW 19.0 H Lymph % (Auto) 9.5 L [place] % (Auto) 11.4 H Lymph # (Auto) 1.1 L [place] # (Auto) 1.3 H Seg Neutrophils % 79.0 H Seg Neutrophils # 9.2 H D-Dimer ABG pH ABG pO2 ABG HCO3 ABG Hemoglobin ABG Glucose Oxyhemoglobin Potassium 5.8 H BUN 37 H Creatinine 1.4 H Glucose 133 H POC Glucose 128 H Lactic Acid Calcium 8.1 L AST 1574 H ALT 1404 H Lactate Dehydrogenase C-Reactive Protein NT-Pro-B Natriuret Pep Albumin 3.8 L Arterial Blood Glucose Urine Blood 03/14/21 03/14/21 03/14/21 10:08 10:08 10:54 WBC RBC Hct MCV MCH MCHC RDW Lymph % (Auto) [place] % (Auto) Lymph # (Auto) [place] # (Auto) Seg Neutrophils % Seg Neutrophils # D-Dimer 1938.22 H ABG pH ABG pO2 ABG HCO3 ABG Hemoglobin ABG Glucose Oxyhemoglobin Potassium BUN Creatinine Glucose 162 H POC Glucose Lactic Acid Calcium AST ALT Lactate Dehydrogenase 1456 H C-Reactive Protein 7.60 H NT-Pro-B Natriuret Pep 1073 H Albumin Arterial Blood Glucose Urine Blood 03/14/21 03/14/21 03/14/21 11:10 12:10 13:02 WBC RBC Hct MCV MCH MCHC RDW Lymph % (Auto) [place] % (Auto) Lymph # (Auto) [place] # (Auto) Seg Neutrophils % Seg Neutrophils # D-Dimer ABG pH 6.994 L* 7.219 L ABG pO2 148.4 H 97.8 H ABG HCO3 37.6 H 28.6 H ABG Hemoglobin 12.9 L ABG Glucose Oxyhemoglobin 94.9 L 94.0 L Potassium BUN Creatinine Glucose POC Glucose Lactic Acid 2.20 H* Calcium AST ALT Lactate Dehydrogenase C-Reactive Protein NT-Pro-B Natriuret Pep Albumin Arterial Blood Glucose Urine Blood 03/14/21 03/15/21 03/15/21 14:39 03:07 07:30 WBC 11.3 H RBC 6.73 H Hct 47.7 H MCV 71 L MCH 21 L MCHC 30 L RDW 18.2 H Lymph % (Auto) 4.4 L [place] % (Auto) Lymph # (Auto) 0.5 L [place] # (Auto) Seg Neutrophils % 89.0 H Seg Neutrophils # 10.1 H D-Dimer ABG pH 7.555 H ABG pO2 ABG HCO3 ABG Hemoglobin ABG Glucose 127 H Oxyhemoglobin Potassium BUN Creatinine Glucose POC Glucose Lactic Acid Calcium AST ALT Lactate Dehydrogenase C-Reactive Protein NT-Pro-B Natriuret Pep Albumin Arterial Blood Glucose 127 H Urine Blood Small A 03/15/21 07:30 WBC RBC Hct MCV MCH MCHC RDW Lymph % (Auto) [place] % (Auto) Lymph # (Auto) [place] # (Auto) Seg Neutrophils % Seg Neutrophils # D-Dimer ABG pH ABG pO2 ABG HCO3 ABG Hemoglobin ABG Glucose Oxyhemoglobin Potassium BUN 27 H Creatinine Glucose 115 H POC Glucose Lactic Acid Calcium 8.1 L AST ALT Lactate Dehydrogenase C-Reactive Protein NT-Pro-B Natriuret Pep Albumin Arterial Blood Glucose Urine Blood - Diagnostic Findings Chest x-ray: report reviewed, image reviewed (bilat opacities diann bernard) Assessment and Plan - Patient Problems (1) Acute respiratory failure with hypoxia and hypercapnia Current Visit: Yes Status: Acute (2) Multifocal pneumonia Current Visit: Yes Status: Acute (3) Obesity hypoventilation syndrome Current Visit: Yes Status: Acute (4) Sepsis Current Visit: Yes Status: Acute Qualifiers: Sepsis acute organ dysfunction status: with acute organ dysfunction Severe sepsis acute organ dysfunction type: acute respiratory failure Acute respiratory failure type: with hypoxia (5) Suspected COVID-19 virus infection Current Visit: Yes Status: Acute (6) Lactic acidosis Current Visit: Yes Status: Acute (7) Renal insufficiency Current Visit: Yes Status: Acute
[2021-03-15] MEDS ORDERED: CHOLECALCIFEROL (VIT D3) 400 UNIT TAB PO SCH (10:00)
[2021-03-15] MEDS: SENNOSIDES/DOCUSATE SODIUM 8.6/50 MG TAB FEEDTUBE SCH ×2 (10:03→21:47)
[2021-03-15] MEDS: ASCORBIC ACID 500 MG TAB PO SCH ×2 (10:03→21:48)
[2021-03-15] MEDS: FAMOTIDINE 20 MG/2 ML INJ IV SCH ×2 (10:03→21:47)
[2021-03-15] MEDS: HEPARIN 5,000 UNIT/1 ML VIAL SUB-Q SCH ×2 (10:04→21:46)
[2021-03-15] MEDS: ZINC SULFATE 220 MG CAP PO SCH ×2 (10:04→21:48)
[2021-03-15] MEDS: CHOLECALCIFEROL (VIT D3) 1000 UNIT (25 mcg) TAB PO SCH (10:05)
[2021-03-15] MEDS: SODIUM CHLORIDE 0.9% 1000 ML 1,000 ML IV SCH ×2 (10:31→21:50)
[2021-03-15] MEDS ORDERED: SODIUM BICARBONATE 325 MG TAB FEEDTUBE PRN (11:15)
[2021-03-15] MEDS ORDERED: SIMPLE SYRUP 15 ML FEEDTUBE PRN ×2 (11:15)
[2021-03-15] MEDS ORDERED: LIPASE 10,500/PROTEASE 25,000/AMYLASE 43,750 (UNITS) DR CAP FEEDTUBE PRN (11:15)
[2021-03-15] MEDS: AZITHROMYCIN/NS 500 MG/250 ML 500 MG/250 ML BAG IV SCH (14:10)
[2021-03-15] MEDS: cefTRIAXone/NS 2 GM/100 ML 2 GM/100 ML BAG IV SCH (14:10)
--- NOTE | 2021-03-15 14:45 | Consultation ---
History of Present Illness - Reason for Consult Consult date: 03/15/21 - History of Present Illness 55-year-old man past medical history hypertension obesity, alcohol dependence was in the hospital in respiratory distress. He was intubated on admission, and remained as such. He was admitted as Covid PUI, no other history is obtainable. Afebrile, white count 11.3. Covid negative normal renal function, elevated procalcitonin. He on ceftriaxone and azithromycin with methylprednisolone. Imaging personally reviewed: Chest x-ray: Pulmonary bialteral pulmonary opacities. Review of systems: Deferred to reduce to the risk of transmission of COVID-19 Past History Past Medical History: hypertension, other (ohs) Past Surgical History: No surgical history, Other (Reviewed) Social history: single, alcohol abuse Family history: diabetes, hypertension Medications and Allergies Allergies Allergy/AdvReac Type Severity Reaction Status Date / Time No Known Allergies Allergy Verified 03/14/21 17:55 Active Meds: Active Medications Acetaminophen (Acetaminophen 325 Mg Tab) 650 mg PO Q6H PRN PRN Reason: Pain MILD(1-3)/Fever >100.5/BAUMAN Albuterol (Albuterol 2.5 Mg/3 Ml Nebu) 2.5 mg IH Q3H PRN PRN Reason: Shortness Of Breath Lipase/Protease/Amylase (Lipase 10,500/Protease 25,000/Amylase 43,750 (Units) Dr Mata) 1 each FEEDTUBE PRN PRN PRN Reason: For Clogged Feeding Tube Ascorbic Acid (Ascorbic Acid 500 Mg Tab) 500 mg PO BID [facility] Last Admin: 03/15/21 10:03 Dose: 500 mg Documented by: Cholecalciferol (Cholecalciferol (Vit D3) 1000 Unit (25 Mcg) Tab) 1,000 unit PO DAILY [facility] Last Admin: 03/15/21 10:05 Dose: 1,000 unit Documented by: Famotidine (Famotidine 20 Mg/2 Ml Inj) 20 mg IV BID [facility] Last Admin: 03/15/21 10:03 Dose: 20 mg Documented by: Fentanyl (Fentanyl 100 Mcg/2 Ml Inj) 50 mcg IV Q10MIN PRN PRN Reason: ANALGESIA Heparin Sodium (Porcine) (Heparin 5,000 Unit/1 Ml Vial) 5,000 unit SUB-Q Q12HR [facility] Last Admin: 03/15/21 10:04 Dose: 5,000 unit Documented by: Hydrophilic Ointment (Lip Therapy Vaseline) 1 applic TP Q2HR PRN PRN Reason: Dry Lips Azithromycin (Zithromax/Ns) 500 mg in 250 mls @ 250 mls/hr IV Q24H [facility]; Protocol Last Admin: 03/15/21 14:10 Dose: 250 mls/hr Documented by: Ceftriaxone Sodium (Rocephin/Ns 2 Gm/100 Ml) 2 gm in 100 mls @ 200 mls/hr IV Q24H [facility]; Protocol Last Admin: 03/15/21 14:10 Dose: 200 mls/hr Documented by: Midazolam HCl 100 mg/ Sodium (Chloride) 100 mls @ 1 mls/hr IV TITR [facility]; Protocol Last Admin: 03/15/21 08:13 Dose: 4 mg/hr, 4 mls/hr Documented by: Fentanyl Citrate (Fentanyl Drip Premix) 2,000 mcg in 100 mls @ 5.465 mls/hr IV TITR [facility]; Protocol Last Admin: 03/15/21 08:13 Dose: 1 mcg/kg/hr, 5.465 mls/hr Documented by: Sodium Chloride (Nacl 0.9% 1000 Ml) 1,000 mls @ 100 mls/hr IV DIRECT [facility] Last Admin: 03/15/21 10:31 Dose: 100 mls/hr Documented by: Lorazepam (Lorazepam 2 Mg/Ml Vial) 2 mg IV Q1H PRN PRN Reason: CIWA-Ar 8-15 Last Admin: 03/15/21 08:13 Dose: 2 mg Documented by: Methylprednisolone Sodium Succinate (Methylprednisolone Sod Succinate 40 Mg/1 Ml Inj) 40 mg IV Q8H [facility] Last Admin: 03/15/21 14:11 Dose: 40 mg Documented by: Midazolam HCl (Midazolam 2 Mg/2 Ml Inj) 2 mg IV Q10MIN PRN PRN Reason: Sedation Multi-Ingred Cream/Lotion/Oil/Oint (Mineral Oil/Petrolatum, White Ophth Oint 3.5 Gm) 1 applic OU Q4HR PRN PRN Reason: Dry Eye(s) Senna/Docusate Sodium (Sennosides/Docusate Sodium 8.6/50 Mg Tab) 1 tab FEEDTUBE BID [facility] Last Admin: 03/15/21 10:03 Dose: 1 tab Documented by: Simple Syrup (Simple Syrup 15 Ml) 15 ml FEEDTUBE PRN PRN PRN Reason: Hypoglycemia Simple Syrup (Simple Syrup 15 Ml) 30 ml FEEDTUBE PRN PRN PRN Reason: Hypoglycemia Sodium Bicarbonate (Sodium Bicarbonate 325 Mg Tab) 325 mg FEEDTUBE PRN PRN PRN Reason: For Clogged Feeding Tube Sodium Chloride (Sodium Chloride 0.9% 10 Ml Flush Syringe) 10 ml IV BID [facility] Last Admin: 03/15/21 10:05 Dose: 10 ml Documented by: Sodium Chloride (Sodium Chloride 0.9% 10 Ml Flush Syringe) 10 ml IV PRN PRN PRN Reason: LINE FLUSH Zinc Sulfate (Zinc Sulfate 220 Mg Cap) 220 mg PO BID [facility] Last Admin: 03/15/21 10:04 Dose: 220 mg Documented by: Physical Examination - Physical Exam Narrative exam: Physical exam deferred to reduce risk of transmission of COVID-19. Please refer to primary team's note. - Constitutional Vitals: Vital Signs Temp Pulse Resp BP Pulse Ox 98.8 F 80 24 118/74 97 03/15/21 07:26 03/15/21 11:00 03/15/21 11:00 03/15/21 11:00 03/15/21 11:00 Temperature -Last 24 Hours Temperature 98.8 F Temperature 99.3 F Temperature 99.1 F Temperature 98.3 F Temperature 97.8 F Results - Labs CBC & Chem 7: 03/15/21 07:30 03/15/21 07:30 Labs: Abnormal lab results 03/14/21 03/15/21 03/15/21 Range/Units 14:39 03:07 07:30 WBC 11.3 H (4.5-11.0) K/mm3 RBC 6.73 H (3.65-5.03) M/mm3 Hct 47.7 H (35.5-45.6) % MCV 71 L (84-94) fl MCH 21 L (28-32) pg MCHC 30 L (32-34) % RDW 18.2 H (13.2-15.2) % Lymph % (Auto) 4.4 L (13.4-35.0) % Lymph # (Auto) 0.5 L (1.2-5.4) K/mm3 Seg Neutrophils % 89.0 H (40.0-70.0) % Seg Neutrophils # 10.1 H (1.8-7.7) K/mm3 ABG pH 7.555 H (7.320-7.450) ABG Glucose 127 H (65-95) mg/dL BUN (9-20) mg/dL Glucose (75-100) mg/dL Calcium (8.4-10.2) mg/dL Arterial Blood Glucose 127 H (65-95) mg/dL Urine Blood Small A (Negative) 03/15/21 Range/Units 07:30 WBC (4.5-11.0) K/mm3 RBC (3.65-5.03) M/mm3 Hct (35.5-45.6) % MCV (84-94) fl MCH (28-32) pg MCHC (32-34) % RDW (13.2-15.2) % Lymph % (Auto) (13.4-35.0) % Lymph # (Auto) (1.2-5.4) K/mm3 Seg Neutrophils % (40.0-70.0) % Seg Neutrophils # (1.8-7.7) K/mm3 ABG pH (7.320-7.450) ABG Glucose (65-95) mg/dL BUN 27 H (9-20) mg/dL Glucose 115 H (75-100) mg/dL Calcium 8.1 L (8.4-10.2) mg/dL Arterial Blood Glucose (65-95) mg/dL Urine Blood (Negative) Assessment and Plan Cultures: Blood culture no growth so far. A/P: 55-year-old man past medical history hypertension obesity, alcohol dependence admitted as COVID PUI #COVID PUI: recommend repeat PCR testing tomorrow given CXR findings consistent with COVID #Acute hypoxic respiratory failure: PNA vs COVID #Obesity #EtOH dependence Recs: -Continue ceftriaxone and azithromycin for now given elevated procalcitonin -Check repeat COVID CPR tomorrow -If positive would start remdesivir and Actemra if CRP >7.5 -Anticoagulation per hospital protocol. Thank you for the consult, we will continue to follow. MD Shai Sanchez [facility] O: [phone] F: [phone]
--- NOTE | 2021-03-15 19:15 | Progress Note ---
<DEV HIGGINS - Last Filed: 03/15/21 19:41> Assessment and Plan Assessment and plan: This is a [id number] male with past medical history of HTN, Obesity Hypoventilation Syndrome, ETOH Dependence, and noncompliance with meds who came in via EMS due to respiratory distress and hypoxia. Patient was intubated in the ED due to acute hypoxic respiratory failure. Patient was admitted in the ICU for further management. Hospital Course to Date: 03/15/21- Patient is on the vent and sedated. Off dopamine, maintaining MAP above 65. Titrate sedation for RASS goal 0 to -2. Continue hydration with NS @100ml/hr. Enteral nutrition initiated. Assessment and Plan #Acute Metabolic Encephalopathy #ETOH Dependence - Patient is intubated and sedated - On versed and Fentanyl, RASS -4 to -5 - Titrate sedation for RASS goal of 0 to -2 - Daily SAT and SBT per CCM - Avoid benzodiazepine's, reduce the possibility of delirium - Prn analgesia for CPOT greater than 3 - Maintenance of sleep-wake cycle #CV:Hypotension #Septic Shock #Metabolic Acidosis- improved #Lactic Acidosis- resolved - Was on dopamine gtt in the ED, now on hold - Normotensive now - Received Sepsis Bolus in the ED - Acidosis improved - Maintain adequate perfusion - IVF added, NS at 100ml/hr - Continue blood pressure monitor per protocol - Maintain MAP above 65 - Consider Levophed vs dopamine if hypotensive - Continue AC- Hep SubQ and SCDs for VTE proph #Acute Hypoxic Respiratory Failure 2/2 PNA vs COVID PNA #COVID PUI - 03/14 CXR- Patchy bilateral pulmonary opacities - 03/15 CXR- No significant change - COVID swab pending - Intubated on 03/14 - Vent Setting: PRVC- 75%,8,24,500 - AM ABG noted - CCM consulted, appreciate recommendations - VAP bundle addressed - Aspiration precaution HOB above 30 - Daily SBT and SAT trials as tolerated - Daily ABG and CXR - Continue SPO2 monitoring for SPO2 goal above 92% #GI: TF - Enteral nutrition intiated - Nutrition on consult - Continue IVF - Continue BR- senokot - Continue PPI- Pepcid #: NAP - Initial Cr. 1.4, 1.0 this am - Strict intake and output - Avoid nephrotoxic medications; Renally dose medications - Benton in place, net -5.6 in last 24hrs - Continue IVF for now - Monitor and replace electrolytes as needed #ID:Sepsis #Lactic Acidosis- resolved #Metabolic Acidosis- resolved #CAP #COVID PUI - 03/14 CXR- Patchy bilateral pulmonary opacities - 03/15 CXR- No significant change - COVID swab pending - 02/11 B.CultX2 with no conrad as to date; 02/11 Sputum Cult pending - Lactic down from 2.2---> 1.80 - Wbcs 11.3 today, patient remains afebrile - Procal 2.73, CRP 7.60 - Continue IV ABx- Rocephin and Azithromycin per ID - Continue to F/U on B.cult - Daily CBC monitor - ID on consult #Endo:Glycemic Control - POCT Q6hrs while on TF - While critically ill target blood glucose of 140-180 - Avoid hypoglycemia History Interval history: Patient is seen and examined at the bedside. Intubated and sedated on versed and fentanyl, RASS -4 to -5. Patient is no longer on pressors Hospitalist Physical - Constitutional Vitals: Temp Pulse Resp BP Pulse Ox 100.2 F H 86 24 115/65 92 03/15/21 15:52 03/15/21 19:00 03/15/21 19:00 03/15/21 19:00 03/15/21 19:00 General appearance: Present: no acute distress, other (Intubated and sedated) - EENT Eyes: Present: PERRL - Respiratory Respiratory effort: normal Respiratory: bilateral: diminished - Cardiovascular Rhythm: regular Heart Sounds: Present: S1 & S2 - Extremities Extremities: no ischemia, pulses intact, pulses symmetrical Extremity abnormal: edema - Peripheral Assessment Generalized Edema Type: Non-pitting Capillary Refill: < 3 seconds Skin Temperature: Warm Peripheral Pulses: within normal limits - Abdominal General gastrointestinal: soft, non-tender, hypoactive bowel sounds - Integumentary Integumentary: Present: clear, warm, dry - Psychiatric Psychiatric: other (Intubated and sedated) - Neurologic Neurologic: other (Intubated and sedated) - Allied Health Allied health notes reviewed: nursing HEART Score - HEART Score Troponin: Troponin T 0.029 ng/mL (0.00-0.029) 03/14/21 10:08 Results - Labs CBC & Chem 7: 03/15/21 07:30 03/15/21 07:30 Labs: Laboratory Last Values WBC 11.3 K/mm3 (4.5-11.0) H 03/15/21 07:30 RBC 6.73 M/mm3 (3.65-5.03) H 03/15/21 07:30 Hgb 14.1 gm/dl (11.8-15.2) 03/15/21 07:30 Hct 47.7 % (35.5-45.6) H 03/15/21 07:30 MCV 71 fl (84-94) L 03/15/21 07:30 MCH 21 pg (28-32) L 03/15/21 07:30 MCHC 30 % (32-34) L 03/15/21 07:30 RDW 18.2 % (13.2-15.2) H 03/15/21 07:30 Plt Count 159 K/mm3 (140-440) 03/15/21 07:30 Lymph % (Auto) 4.4 % (13.4-35.0) L 03/15/21 07:30 [place] % (Auto) 6.5 % (0.0-7.3) 03/15/21 07:30 Eos % (Auto) 0.0 % (0.0-4.3) 03/15/21 07:30 Baso % (Auto) 0.1 % (0.0-1.8) 03/15/21 07:30 Lymph # (Auto) 0.5 K/mm3 (1.2-5.4) L 03/15/21 07:30 [place] # (Auto) 0.7 K/mm3 (0.0-0.8) 03/15/21 07:30 Eos # (Auto) 0.0 K/mm3 (0.0-0.4) 03/15/21 07:30 Baso # (Auto) 0.0 K/mm3 (0.0-0.1) 03/15/21 07:30 Seg Neutrophils % 89.0 % (40.0-70.0) H 03/15/21 07:30 Seg Neutrophils # 10.1 K/mm3 (1.8-7.7) H 03/15/21 07:30 D-Dimer 1938.22 ng/mlDDU (0-234) H 03/14/21 10:08 ABG pH 7.555 (7.320-7.450) H 03/15/21 03:07 POC ABG pCO2 37.2 mmHg (32.0-48.0) 03/15/21 03:07 ABG pCO2 71.8 mm Hg 03/14/21 12:10 POC ABG pO2 92.9 mmHg (83-108) 03/15/21 03:07 ABG pO2 97.8 mm Hg (80.0-90.0) H 03/14/21 12:10 POC ABG HCO3 32.2 03/15/21 03:07 ABG HCO3 28.6 mmol/L (20.0-26.0) H 03/14/21 12:10 ABG O2 Saturation 98.0 (0-100) 03/15/21 03:07 ABG O2 Content 17.1 (0.0-44) 03/14/21 12:10 POC ABG Base Excess 9.4 03/15/21 03:07 ABG Base Excess -0.7 mmol/L (-2.0-3.0) 03/14/21 12:10 ABG Hemoglobin 15.2 (12.0-17.5) 03/15/21 03:07 ABG Oxyhemoglobin 97.3 (94-98) 03/15/21 03:07 ABG Carboxyhemoglobin 1.9 % (0.0-5.0) 03/14/21 12:10 ABG Methemoglobin 0 (0.0-1.5) 03/15/21 03:07 ABG Sodium 136.9 mmol/L (136.0-145.0) 03/15/21 03:07 ABG Potassium 4.5 mmol/L (3.40-4.50) 03/15/21 03:07 ABG Chloride 105.0 mmol/L (98-107) 03/15/21 03:07 ABG Glucose 127 mg/dL (65-95) H 03/15/21 03:07 Oxyhemoglobin 94.0 % (95.0-99.0) L 03/14/21 12:10 Carboxyhemoglobin 0.7 (0.5-1.5) 03/15/21 03:07 FiO2 100 % 03/14/21 12:10 FiO2 % 85.0 03/15/21 03:07 Sodium 145 mmol/L (137-145) 03/15/21 07:30 Potassium 4.7 mmol/L (3.6-5.0) 03/15/21 07:30 Chloride 105.5 mmol/L (98-107) 03/15/21 07:30 Carbon Dioxide 29 mmol/L (22-30) 03/15/21 07:30 Anion Gap 15 mmol/L 03/15/21 07:30 BUN 27 mg/dL (9-20) H 03/15/21 07:30 Creatinine 1.0 mg/dL (0.8-1.3) 03/15/21 07:30 Estimated GFR > 60 ml/min 03/15/21 07:30 BUN/Creatinine Ratio 27 % 03/15/21 07:30 Glucose 115 mg/dL (75-100) H 03/15/21 07:30 POC Glucose 129 mg/dL (70-105) H 03/15/21 17:12 Lactic Acid 1.80 mmol/L (0.7-2.0) 03/14/21 23:38 Calcium 8.1 mg/dL (8.4-10.2) L 03/15/21 07:30 Ferritin 46.5 ng/mL (30.0-300.0) 03/14/21 10:54 Total Bilirubin 0.90 mg/dL (0.1-1.2) 03/14/21 10:08 AST 1574 units/L (5-40) H 03/14/21 10:08 ALT 1404 units/L (7-56) H 03/14/21 10:08 Alkaline Phosphatase 124 units/L (35-129) 03/14/21 10:08 Lactate Dehydrogenase 1456 units/L (91-180) H 03/14/21 10:54 Troponin T 0.029 ng/mL (0.00-0.029) 03/14/21 10:08 C-Reactive Protein 7.60 mg/dL (0.00-1.30) H 03/14/21 10:54 NT-Pro-B Natriuret Pep 1073 pg/mL (0-900) H 03/14/21 10:08 Total Protein 7.6 g/dL (6.3-8.2) 03/14/21 10:08 Albumin 3.8 g/dL (3.9-5) L 03/14/21 10:08 Albumin/Globulin Ratio 1.0 % 03/14/21 10:08 Procalcitonin 2.63 ng/mL (<0.15) 03/14/21 10:54 Arterial Blood Glucose 127 mg/dL (65-95) H 03/15/21 03:07 Urine Color Straw (Yellow) 03/14/21 14:39 Urine Turbidity Clear (Clear) 03/14/21 14:39 Urine pH 6.0 (5.0-7.0) 03/14/21 14:39 Ur Specific [place] 1.010 (1.003-1.030) 03/14/21 14:39 Urine Protein 30 mg/dl mg/dL (Negative) 03/14/21 14:39 Urine Glucose (UA) Negative mg/dL (Negative) 03/14/21 14:39 Urine Ketones Negative mg/dL (Negative) 03/14/21 14:39 Urine Blood Small (Negative) A 03/14/21 14:39 Urine Nitrite Negative (Negative) 03/14/21 14:39 Ur Reducing Substances Not Reportable 03/14/21 14:39 Urine Bilirubin Negative (Negative) 03/14/21 14:39 Urine Ictotest Not Reportable 03/14/21 14:39 Urine Urobilinogen Not Reportable 03/14/21 14:39 Ur Leukocyte Esterase Negative (Negative) 03/14/21 14:39 Urine WBC (Auto) 0.0 /HPF (0.0-6.0) 03/14/21 14:39 Urine RBC (Auto) 2.0 /HPF (0.0-6.0) 03/14/21 14:39 U Epithel Cells (Auto) < 1.0 /HPF (0-13.0) 03/14/21 14:39 Coronavirus (PCR) Negative (Negative) 03/15/21 Unknown Blood Type O POSITIVE 03/14/21 13:02 Antibody Screen Negative 03/14/21 13:02 Microbiology: Microbiology 03/14/21 10:08 Peripheral/Venous Blood Culture - Preliminary NO GROWTH AFTER 24 HOURS 03/14/21 10:08 Peripheral/Venous Blood Culture - Preliminary NO GROWTH AFTER 24 HOURS 03/14/21 12:30 Tracheal Aspirate Sputum Culture - Preliminary [place]/IV: Voiding Method Indwelling Catheter Active Medications - Current Medications Current Medications: Generic Name Dose Route Start Last Admin Trade Name Freq PRN Reason Stop Dose Admin Acetaminophen 650 mg 03/14/21 12:04 Acetaminophen 325 Mg Tab PO Q6H PRN Pain MILD(1-3)/Fever >100.5/BAUMAN Albuterol 2.5 mg 03/14/21 12:04 Albuterol 2.5 Mg/3 Ml Nebu IH Q3H PRN Shortness Of Breath Lipase/Protease/Amylase 1 each 03/15/21 11:15 Lipase 10,500/Protease 25,000/Amylase 43,750 (Units) Dr Mata FEEDTUBE PRN PRN For Clogged Feeding Tube Ascorbic Acid 500 mg 03/14/21 22:00 03/15/21 10:03 Ascorbic Acid 500 Mg Tab PO 500 mg BID RAMIRO Administration Cholecalciferol 1,000 unit 03/15/21 10:00 03/15/21 10:05 Cholecalciferol (Vit D3) 1000 Unit (25 Mcg) Tab PO 1,000 unit DAILY RAMIRO Administration Famotidine 20 mg 03/14/21 13:00 03/15/21 10:03 Famotidine 20 Mg/2 Ml Inj IV 20 mg BID RAMIRO Administration Fentanyl 50 mcg 03/14/21 21:23 Fentanyl 100 Mcg/2 Ml Inj IV Q10MIN PRN ANALGESIA Heparin Sodium (Porcine) 5,000 unit 03/14/21 22:00 03/15/21 10:04 Heparin 5,000 Unit/1 Ml Vial SUB-Q 5,000 unit Q12HR RAMIRO Administration Hydrophilic Ointment 1 applic 03/14/21 12:02 Lip Therapy Vaseline TP Q2HR PRN Dry Lips Azithromycin 500 mg in 250 mls @ 250 mls/hr 03/14/21 13:00 03/15/21 14:10 Zithromax/Ns IV 250 mls/hr Q24H RAMIRO Administration Protocol Ceftriaxone Sodium 2 gm in 100 mls @ 200 mls/hr 03/14/21 13:00 03/15/21 14:10 Rocephin/Ns 2 Gm/100 Ml IV 200 mls/hr Q24H RAMIRO Administration Protocol Midazolam HCl 100 mg/ Sodium 100 mls @ 1 mls/hr 03/14/21 22:00 03/15/21 08:13 Chloride IV 4 mg/hr TITR RAMIRO 4 mls/hr Administration Protocol 1 MG/HR Fentanyl Citrate 2,000 mcg in 100 mls @ 5.465 mls/hr 03/14/21 22:00 03/15/21 19:07 Fentanyl Drip Premix IV 2 mcg/kg/hr TITR RAMIRO 10.93 mls/hr Administration Protocol 1 MCG/KG/HR Sodium Chloride 1,000 mls @ 100 mls/hr 03/15/21 10:00 03/15/21 10:31 Nacl 0.9% 1000 Ml IV 100 mls/hr DIRECT RAMIRO Administration Lorazepam 2 mg 03/14/21 12:17 03/15/21 08:13 Lorazepam 2 Mg/Ml Vial IV 2 mg Q1H PRN Administration JUAN-Magdiel 8-15 Methylprednisolone Sodium Succinate 40 mg 03/14/21 13:00 03/15/21 14:11 Methylprednisolone Sod Succinate 40 Mg/1 Ml Inj IV 40 mg Q8H RAMIRO Administration Midazolam HCl 2 mg 03/14/21 21:21 Midazolam 2 Mg/2 Ml Inj IV Q10MIN PRN Sedation Multi-Ingred Cream/Lotion/Oil/Oint 1 applic 03/14/21 12:02 Mineral Oil/Petrolatum, White Ophth Oint 3.5 Gm OU Q4HR PRN Dry Eye(s) Senna/Docusate Sodium 1 tab 03/14/21 13:00 03/15/21 10:03 Sennosides/Docusate Sodium 8.6/50 Mg Tab FEEDTUBE 1 tab BID RAMIRO Administration Simple Syrup 15 ml 03/15/21 11:15 Simple Syrup 15 Ml FEEDTUBE PRN PRN Hypoglycemia Simple Syrup 30 ml 03/15/21 11:15 Simple Syrup 15 Ml FEEDTUBE PRN PRN Hypoglycemia Sodium Bicarbonate 325 mg 03/15/21 11:15 Sodium Bicarbonate 325 Mg Tab FEEDTUBE PRN PRN For Clogged Feeding Tube Sodium Chloride 10 ml 03/14/21 22:00 03/15/21 10:05 Sodium Chloride 0.9% 10 Ml Flush Syringe IV 10 ml BID RAMIRO Administration Sodium Chloride 10 ml 03/14/21 12:04 Sodium Chloride 0.9% 10 Ml Flush Syringe IV PRN PRN LINE FLUSH Zinc Sulfate 220 mg 03/14/21 22:00 03/15/21 10:04 Zinc Sulfate 220 Mg Cap PO 220 mg BID RAMIRO Administration Nutrition/Malnutrition Assess - Dietary Evaluation Nutrition/Malnutrition Findings: Nutrition Notes Start: 03/15/21 11:04 Freq: Status: Active Protocol: Document 03/15/21 11:04 ALTA (Rec: 03/15/21 11:15 ALTA [id number]) Nutrition Notes Need for Assessment 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: 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 Pt intubated; hx of medication noncompliance and on CIWA protocol. Burn Absent Trauma Absent Minimum of two criteria No #1 Nutrition Diagnosis Swallowing difficulty Etiology mech ventilation As Evidenced by Signs and Symptoms pt NPO and requires EN support to meet nutrient needs Is patient on ventilator? Yes Is Patient Ambulatory and/or Out of Bed No REE-([facility]-confined to bed) [phone] Calculation Used for Recommendations 65-70% energy needs Additional Notes Energy needs: 0831-2135 kcal/ day Pro needs >2g/kg IBW: >140g/ day Fluid needs 1ml/kcal Nutrition Intervention Nutrition Support: Vital HP at 65ml/hr with 50ml water flush q4h. Kcal 1,560 Protein (gm) 137 Carbohydrates (gm) 175 Fat (gm) 36 Fluid (mL) 1,304 Fiber (gm) 0 Goal #1 TF tolerance Goal #2 TF (at goal rate) to meet 65- 70% energy and 80-100% pro needs Anticipated Discharge Needs: Unable to identify at this time Follow-Up By: 03/17/21 Additional Comments F/U: new TF, vent status, COVID-19 status <ZHANNA MUNOZ - Last Filed: 03/16/21 10:19> Assessment and Plan Assessment and plan: I saw and evaluated the patient. Discussed with the nurse practitioner and agree with their findings and plan as documented in this note. Hospitalist Physical - Constitutional Vitals: Temp Pulse Resp BP Pulse Ox 99.3 F 68 24 149/86 97 03/16/21 07:32 03/16/21 07:39 03/16/21 06:00 03/16/21 07:39 03/16/21 07:39 HEART Score - HEART Score Troponin: Troponin T 0.029 ng/mL (0.00-0.029) 03/14/21 10:08 Results - Labs CBC & Chem 7: 03/16/21 07:07 03/16/21 04:30 Labs: Laboratory Last Values WBC 10.0 K/mm3 (4.5-11.0) 03/16/21 07:07 RBC 6.56 M/mm3 (3.65-5.03) H 03/16/21 07:07 Hgb 14.2 gm/dl (11.8-15.2) 03/16/21 07:07 Hct 46.3 % (35.5-45.6) H 03/16/21 07:07 MCV 71 fl (84-94) L 03/16/21 07:07 MCH 22 pg (28-32) L 03/16/21 07:07 MCHC 31 % (32-34) L 03/16/21 07:07 RDW 18.1 % (13.2-15.2) H 03/16/21 07:07 Plt Count 109 K/mm3 (140-440) L 03/16/21 07:07 Lymph % (Auto) 4.4 % (13.4-35.0) L 03/15/21 07:30 [place] % (Auto) 6.5 % (0.0-7.3) 03/15/21 07:30 Eos % (Auto) 0.0 % (0.0-4.3) 03/15/21 07:30 Baso % (Auto) 0.1 % (0.0-1.8) 03/15/21 07:30 Lymph # (Auto) 0.5 K/mm3 (1.2-5.4) L 03/15/21 07:30 [place] # (Auto) 0.7 K/mm3 (0.0-0.8) 03/15/21 07:30 Eos # (Auto) 0.0 K/mm3 (0.0-0.4) 03/15/21 07:30 Baso # (Auto) 0.0 K/mm3 (0.0-0.1) 03/15/21 07:30 Seg Neutrophils % 89.0 % (40.0-70.0) H 03/15/21 07:30 Seg Neutrophils # 10.1 K/mm3 (1.8-7.7) H 03/15/21 07:30 D-Dimer 1938.22 ng/mlDDU (0-234) H 03/14/21 10:08 ABG pH 7.450 pH Units (7.350-7.450) 03/16/21 05:15 POC ABG pCO2 37.2 mmHg (32.0-48.0) 03/15/21 03:07 ABG pCO2 42.1 mm Hg 03/16/21 05:15 POC ABG pO2 92.9 mmHg (83-108) 03/15/21 03:07 ABG pO2 101.6 mm Hg (80.0-90.0) H 03/16/21 05:15 POC ABG HCO3 32.2 03/15/21 03:07 ABG HCO3 28.6 mmol/L (20.0-26.0) H 03/16/21 05:15 ABG O2 Saturation 97.8 % (95.0-99.0) 03/16/21 05:15 ABG O2 Content 19.6 (0.0-44) 03/16/21 05:15 POC ABG Base Excess 9.4 03/15/21 03:07 ABG Base Excess 4.2 mmol/L (-2.0-3.0) H 03/16/21 05:15 ABG Hemoglobin 14.5 gm/dl (14.0-18.0) 03/16/21 05:15 ABG Oxyhemoglobin 97.3 (94-98) 03/15/21 03:07 ABG Carboxyhemoglobin 1.4 % (0.0-5.0) 03/16/21 05:15 ABG Methemoglobin 0.6 % (0.0-1.5) 03/16/21 05:15 ABG Sodium 136.9 mmol/L (136.0-145.0) 03/15/21 03:07 ABG Potassium 4.5 mmol/L (3.40-4.50) 03/15/21 03:07 ABG Chloride 105.0 mmol/L (98-107) 03/15/21 03:07 ABG Glucose 127 mg/dL (65-95) H 03/15/21 03:07 Oxyhemoglobin 95.8 % (95.0-99.0) 03/16/21 05:15 Carboxyhemoglobin 0.7 (0.5-1.5) 03/15/21 03:07 FiO2 45 % 03/16/21 05:15 FiO2 % 85.0 03/15/21 03:07 Sodium 145 mmol/L (137-145) 03/16/21 04:30 Potassium 4.3 mmol/L (3.6-5.0) 03/16/21 04:30 Chloride 109.4 mmol/L (98-107) H 03/16/21 04:30 Carbon Dioxide 27 mmol/L (22-30) 03/16/21 04:30 Anion Gap 13 mmol/L 03/16/21 04:30 BUN 33 mg/dL (9-20) H 03/16/21 04:30 Creatinine 1.1 mg/dL (0.8-1.3) 03/16/21 04:30 Estimated GFR > 60 ml/min 03/16/21 04:30 BUN/Creatinine Ratio 30 % 03/16/21 04:30 Glucose 131 mg/dL (75-100) H 03/16/21 04:30 POC Glucose 137 mg/dL (70-105) H 03/16/21 05:42 Lactic Acid 1.80 mmol/L (0.7-2.0) 03/14/21 23:38 Calcium 7.9 mg/dL (8.4-10.2) L 03/16/21 04:30 Phosphorus 3.20 mg/dL (2.5-4.5) 03/16/21 04:30 Magnesium 2.50 mg/dL (1.7-2.3) H 03/16/21 04:30 Ferritin 46.5 ng/mL (30.0-300.0) 03/14/21 10:54 Total Bilirubin 0.90 mg/dL (0.1-1.2) 03/14/21 10:08 AST 1574 units/L (5-40) H 03/14/21 10:08 ALT 1404 units/L (7-56) H 03/14/21 10:08 Alkaline Phosphatase 124 units/L (35-129) 03/14/21 10:08 Lactate Dehydrogenase 1456 units/L (91-180) H 03/14/21 10:54 Troponin T 0.029 ng/mL (0.00-0.029) 03/14/21 10:08 C-Reactive Protein 7.60 mg/dL (0.00-1.30) H 03/14/21 10:54 NT-Pro-B Natriuret Pep 1073 pg/mL (0-900) H 03/14/21 10:08 Total Protein 7.6 g/dL (6.3-8.2) 03/14/21 10:08 Albumin 3.8 g/dL (3.9-5) L 03/14/21 10:08 Albumin/Globulin Ratio 1.0 % 03/14/21 10:08 Procalcitonin 2.63 ng/mL (<0.15) 03/14/21 10:54 Arterial Blood Glucose 127 mg/dL (65-95) H 03/15/21 03:07 Urine Color Straw (Yellow) 03/14/21 14:39 Urine Turbidity Clear (Clear) 03/14/21 14:39 Urine pH 6.0 (5.0-7.0) 03/14/21 14:39 Ur Specific [place] 1.010 (1.003-1.030) 03/14/21 14:39 Urine Protein 30 mg/dl mg/dL (Negative) 03/14/21 14:39 Urine Glucose (UA) Negative mg/dL (Negative) 03/14/21 14:39 Urine Ketones Negative mg/dL (Negative) 03/14/21 14:39 Urine Blood Small (Negative) A 03/14/21 14:39 Urine Nitrite Negative (Negative) 03/14/21 14:39 Ur Reducing Substances Not Reportable 03/14/21 14:39 Urine Bilirubin Negative (Negative) 03/14/21 14:39 Urine Ictotest Not Reportable 03/14/21 14:39 Urine Urobilinogen Not Reportable 03/14/21 14:39 Ur Leukocyte Esterase Negative (Negative) 03/14/21 14:39 Urine WBC (Auto) 0.0 /HPF (0.0-6.0) 03/14/21 14:39 Urine RBC (Auto) 2.0 /HPF (0.0-6.0) 03/14/21 14:39 U Epithel Cells (Auto) < 1.0 /HPF (0-13.0) 03/14/21 14:39 Coronavirus (PCR) Negative (Negative) 03/15/21 Unknown Blood Type O POSITIVE 03/14/21 13:02 Antibody Screen Negative 03/14/21 13:02 Microbiology: Microbiology 03/14/21 10:08 Peripheral/Venous Blood Culture - Preliminary NO GROWTH AFTER 24 HOURS 03/14/21 10:08 Peripheral/Venous Blood Culture - Preliminary NO GROWTH AFTER 24 HOURS 03/14/21 12:30 Tracheal Aspirate Sputum Culture - Preliminary [place]/IV: Voiding Method Indwelling Catheter Active Medications - Current Medications Current Medications: Generic Name Dose Route Start Last Admin Trade Name Freq PRN Reason Stop Dose Admin Acetaminophen 650 mg 03/14/21 12:04 03/16/21 00:27 Acetaminophen 325 Mg Tab PO 650 mg Q6H PRN Administration Pain MILD(1-3)/Fever >100.5/BAUMAN Albuterol 2.5 mg 03/14/21 12:04 Albuterol 2.5 Mg/3 Ml Nebu IH Q3H PRN Shortness Of Breath Lipase/Protease/Amylase 1 each 03/15/21 11:15 Lipase 10,500/Protease 25,000/Amylase 43,750 (Units) Dr Mata FEEDTUBE PRN PRN For Clogged Feeding Tube Ascorbic Acid 500 mg 03/14/21 22:00 03/16/21 09:42 Ascorbic Acid 500 Mg Tab PO 500 mg BID RAMIRO Administration Cholecalciferol 1,000 unit 03/15/21 10:00 03/16/21 09:42 Cholecalciferol (Vit D3) 1000 Unit (25 Mcg) Tab PO 1,000 unit DAILY RAMIRO Administration Famotidine 20 mg 03/16/21 22:00 Famotidine 20 Mg Tab FEEDTUBE BID RAMIRO Fentanyl 50 mcg 03/14/21 21:23 Fentanyl 100 Mcg/2 Ml Inj IV Q10MIN PRN ANALGESIA Heparin Sodium (Porcine) 5,000 unit 03/14/21 22:00 03/16/21 09:42 Heparin 5,000 Unit/1 Ml Vial SUB-Q 5,000 unit Q12HR RAMIRO Administration Hydrophilic Ointment 1 applic 03/14/21 12:02 Lip Therapy Vaseline TP Q2HR PRN Dry Lips Azithromycin 500 mg in 250 mls @ 250 mls/hr 03/14/21 13:00 03/15/21 14:10 Zithromax/Ns IV 250 mls/hr Q24H RAMIRO Administration Protocol Ceftriaxone Sodium 2 gm in 100 mls @ 200 mls/hr 03/14/21 13:00 03/15/21 14:10 Rocephin/Ns 2 Gm/100 Ml IV 200 mls/hr Q24H RAMIRO Administration Protocol Midazolam HCl 100 mg/ Sodium 100 mls @ 1 mls/hr 03/14/21 22:00 03/16/21 09:49 Chloride IV Infused TITR RAMIRO Titration Protocol 1 MG/HR Fentanyl Citrate 2,000 mcg in 100 mls @ 5.465 mls/hr 03/14/21 22:00 03/16/21 04:20 Fentanyl Drip Premix IV 2 mcg/kg/hr TITR RAMIRO 10.93 mls/hr Administration Protocol 1 MCG/KG/HR Sodium Chloride 1,000 mls @ 100 mls/hr 03/15/21 10:00 03/16/21 08:32 Nacl 0.9% 1000 Ml IV 100 mls/hr DIRECT RAMIRO Administration Lorazepam 2 mg 03/14/21 12:17 03/15/21 08:13 Lorazepam 2 Mg/Ml Vial IV 2 mg Q1H PRN Administration JUAN-Magdiel 8-15 Methylprednisolone Sodium Succinate 40 mg 03/14/21 13:00 03/16/21 04:21 Methylprednisolone Sod Succinate 40 Mg/1 Ml Inj IV 40 mg Q8H RAMIRO Administration Midazolam HCl 2 mg 03/14/21 21:21 Midazolam 2 Mg/2 Ml Inj IV Q10MIN PRN Sedation Multi-Ingred Cream/Lotion/Oil/Oint 1 applic 03/14/21 12:02 Mineral Oil/Petrolatum, White Ophth Oint 3.5 Gm OU Q4HR PRN Dry Eye(s) Senna/Docusate Sodium 1 tab 03/14/21 13:00 03/16/21 09:42 Sennosides/Docusate Sodium 8.6/50 Mg Tab FEEDTUBE 1 tab BID RAMIRO Administration Simple Syrup 15 ml 03/15/21 11:15 Simple Syrup 15 Ml FEEDTUBE PRN PRN Hypoglycemia Simple Syrup 30 ml 03/15/21 11:15 Simple Syrup 15 Ml FEEDTUBE PRN PRN Hypoglycemia Sodium Bicarbonate 325 mg 03/15/21 11:15 Sodium Bicarbonate 325 Mg Tab FEEDTUBE PRN PRN For Clogged Feeding Tube Sodium Chloride 10 ml 03/14/21 22:00 03/16/21 09:43 Sodium Chloride 0.9% 10 Ml Flush Syringe IV 10 ml BID RAMIRO Administration Sodium Chloride 10 ml 03/14/21 12:04 Sodium Chloride 0.9% 10 Ml Flush Syringe IV PRN PRN LINE FLUSH Zinc Sulfate 220 mg 03/14/21 22:00 03/16/21 09:43 Zinc Sulfate 220 Mg Cap PO 220 mg BID RAMIRO Administration Nutrition/Malnutrition Assess - Dietary Evaluation Nutrition/Malnutrition Findings: Nutrition Notes Start: 03/15/21 11:04 Freq: Status: Active Protocol: Document 03/15/21 11:04 ALTA (Rec: 03/15/21 11:15 [facility] [id number]) Nutrition Notes Need for Assessment 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: 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 Pt intubated; hx of medication noncompliance and on CIWA protocol. Burn Absent Trauma Absent Minimum of two criteria No #1 Nutrition Diagnosis Swallowing difficulty Etiology mech ventilation As Evidenced by Signs and Symptoms pt NPO and requires EN support to meet nutrient needs Is patient on ventilator? Yes Is Patient Ambulatory and/or Out of Bed No REE-([facility]-confined to bed) 1099.164 Calculation Used for Recommendations 65-70% energy needs Additional Notes Energy needs: 6064-6556 kcal/ day Pro needs >2g/kg IBW: >140g/ day Fluid needs 1ml/kcal Nutrition Intervention Nutrition Support: Vital HP at 65ml/hr with 50ml water flush q4h. Kcal 1,560 Protein (gm) 137 Carbohydrates (gm) 175 Fat (gm) 36 Fluid (mL) 1,304 Fiber (gm) 0 Goal #1 TF tolerance Goal #2 TF (at goal rate) to meet 65- 70% energy and 80-100% pro needs Anticipated Discharge Needs: Unable to identify at this time Follow-Up By: 03/17/21 Additional Comments F/U: new TF, vent status, COVID-19 status
[2021-03-16] MEDS: ACETAMINOPHEN 325 MG TAB PO PRN ×2 (00:27→21:03)
--- NOTE | 2021-03-16 03:32 | XRay Report ---
CHEST 1 VIEW 03/16/2021 1:22 AM INDICATION / CLINICAL INFORMATION: follow up respiratory failure. COMPARISON: 03/15/21 FINDINGS: SUPPORT DEVICES: Unchanged. HEART / MEDIASTINUM: Stable. LUNGS / PLEURA: Patchy bilateral pulmonary opacities are unchanged. No pneumothorax. ADDITIONAL FINDINGS: No significant additional findings. IMPRESSION: 1. No significant change. Signer Name: Elise Kong MD Signed: 03/16/2021 3:28 AM Workstation Name: [id number]
[2021-03-16] MEDS: fentaNYL DRIP Premix 2,000 MCG/100 ML BAG IV SCH ×3 (04:20→20:10)
[2021-03-16] MEDS: methylPREDNISolone Sod Succinate 40 MG/1 ML INJ IV SCH (04:21)
[2021-03-16 05:26] LABS: BUN/Creatinine Ratio 30; Blood Urea Nitrogen 33 mg/dL (9-20); Calcium 7.9 mg/dL (8.4-10.2); Hemolysis Index 23
[2021-03-16 05:39] LABS: ABG Base Excess 4.2 mmol/L (-2.0-3.0); ABG HCO3 28.6 mmol/L (20.0-26.0); ABG Methemoglobin 0.6 % (0.0-1.5); ABG Oxygen Saturation 97.8 % (95.0-99.0); ABG PCO2 42.1 mm Hg; ABG PH 7.45 pH Units (7.350-7.450); ABG PO2 101.6 mm Hg (80.0-90.0)
[2021-03-16 07:35] LABS: Red Cell Distribution Width 18.1 % (13.2-15.2)
[2021-03-16 08:05] LABS: Mean Corpuscular HGB Conc 31 % (32-34); Mean Corpuscular Volume 71 fl (84-94); Red Blood Count 6.56 M/mm3 (3.65-5.03)
[2021-03-16 08:11] LABS: Hematocrit 46.3 % (35.5-45.6); Hemoglobin 14.2 gm/dl (11.8-15.2)
[2021-03-16] MEDS: SODIUM CHLORIDE 0.9% 1000 ML 1,000 ML IV SCH ×2 (08:32→21:00)
[2021-03-16 08:49] LABS: Platelet Count 109 K/mm3 (140-440)
[2021-03-16] MEDS: CHOLECALCIFEROL (VIT D3) 1000 UNIT (25 mcg) TAB PO SCH (09:42)
[2021-03-16] MEDS: SENNOSIDES/DOCUSATE SODIUM 8.6/50 MG TAB FEEDTUBE SCH ×2 (09:42→21:03)
[2021-03-16] MEDS: FAMOTIDINE 20 MG/2 ML INJ IV SCH (09:42)
[2021-03-16] MEDS: ASCORBIC ACID 500 MG TAB PO SCH (09:42)
[2021-03-16] MEDS: HEPARIN 5,000 UNIT/1 ML VIAL SUB-Q SCH ×2 (09:42→21:03)
[2021-03-16] MEDS: ZINC SULFATE 220 MG CAP PO SCH (09:43)
[2021-03-16] MEDS: MIDAZOLAM 100 MG in SODIUM CHLORIDE 0.9% 80 ML IV SCH (09:49)
--- NOTE | 2021-03-16 11:20 | Progress Note ---
Assessment and Plan Assessment and plan: This is a 68-wua[age]-m[age] male with past medical history of HTN, Obesity Hypoventilation Syndrome, ETOH Dependence, and noncompliance with meds who came in via EMS due to respiratory distress and hypoxia. Patient was intubated in the ED due to acute hypoxic respiratory failure. Patient was admitted in the ICU for further management. Hospital Course to Date: 03/15/21- Patient is on the vent and sedated. Off dopamine, maintaining MAP above 65. Titrate sedation for RASS goal 0 to -2. Continue hydration with NS @100ml/hr. Enteral nutrition initiated. 03/16/21- Patient remains on the vent, on fentanyl and Versed, RASS -4. Plan to weaned sedation off sedation for possible SAT. Patient was febrile overnight TMAX 103.1, WBCs wnl, on IV Abx, and ID is following. Will continue to trend CBC Assessment and Plan #Acute Metabolic Encephalopathy #ETOH Dependence - Patient is intubated and sedated - On versed and Fentanyl, RASS -4 - Titrate sedation for RASS goal of 0 to -2 - Possible SAT today - Daily SAT and SBT per CCM - Avoid benzodiazepine's, reduce the possibility of delirium - Prn analgesia for CPOT greater than 3 - Maintenance of sleep-wake cycle #CV:Hypotension- resolved #Septic Shock #Metabolic Acidosis- improved #Lactic Acidosis- resolved - Was on dopamine gtt in the ED, now on hold - Normotensive now - Received Sepsis Bolus in the ED - Acidosis improved - Maintain adequate perfusion - IVF added, NS at 100ml/hr - Continue blood pressure monitor per protocol - Maintain MAP above 65 - Consider Levophed vs dopamine if hypotensive - Continue AC- Hep SubQ and SCDs for VTE proph #Acute Hypoxic Respiratory Failure 2/2 PNA - 03/14 CXR- Patchy bilateral pulmonary opacities - 03/15 CXR- No significant change - COVID swab negative - Intubated on 03/14 - Vent Setting: PRVC- 45%,8,24,500 - AM ABG noted - CCM consulted, appreciate recommendations - VAP bundle addressed - Aspiration precaution HOB above 30 - Daily SBT and SAT trials as tolerated - Daily ABG and CXR - Continue SPO2 monitoring for SPO2 goal above 92% #GI: TF - Enteral nutrition intiated - Nutrition on consult - Continue IVF - Continue BR- senokot - Continue PPI- Pepcid #: NAP - Initial Cr. 1.4, 1.1 this am - Strict intake and output - Avoid nephrotoxic medications; Renally dose medications - Benton in place, net -653 in last 24hrs - Continue IVF for now - Monitor and replace electrolytes as needed #ID:Sepsis #Lactic Acidosis- resolved #Metabolic Acidosis- resolved #CAP - 03/14 CXR- Patchy bilateral pulmonary opacities - 03/15 CXR- No significant change - COVID swab negative - 02/11 B.CultX2 with no conrad as to date; 02/11 Sputum Cult pending - Lactic down from 2.2---> 1.80 - Febrile overnight, TMAX 103.1 - Wbcs downtrending 10 today - Procal 2.73, CRP 7.60 - Continue IV ABx- Rocephin and Azithromycin per ID - Continue to F/U on B.cult - Daily CBC monitor - ID on consult #Endo:Glycemic Control - POCT Q6hrs while on TF - While critically ill target blood glucose of 140-180 - Avoid hypoglycemia The high probability of a clinically significant, sudden or life threatening deterioration of the [multiple] system(s) required my full and direct attention, intervention and personal management. The aggregate critical care time was [60] minutes. This time is in addition to time spent performing reported procedures but includes the following: [x] Data Review and interpretation [x] Patient assessment and monitoring of vital signs [x] Documentation [x] Medication orders and management Disposition Plan: ICU Total Time Spent with Patient (Minutes): 60 History Interval history: Patient is seen and examined at the bedside. Intubated and sedated on versed and fentanyl, RASS -4. Febrile overnight PRN antipyretic was given, now afebrile. LUIS ANTONIO overnight Hospitalist Physical - Constitutional Vitals: Temp Pulse Resp BP Pulse Ox 99.3 F 68 24 149/86 97 03/16/21 07:32 03/16/21 07:39 03/16/21 06:00 03/16/21 07:39 03/16/21 07:39 General appearance: Present: no acute distress, other (Intubated and sedated) - EENT Eyes: Present: PERRL ENT: clear oral mucosa - Respiratory Respiratory effort: normal Respiratory: bilateral: diminished - Cardiovascular Rhythm: regular Heart Sounds: Present: S1 & S2 - Extremities Extremities: no ischemia, pulses intact, pulses symmetrical Peripheral Pulses: within normal limits - Abdominal General gastrointestinal: soft, non-tender, normal bowel sounds - Integumentary Integumentary: Present: clear, warm, dry - Psychiatric Psychiatric: other (Intubated and sedated) - Neurologic Neurologic: other (Intubated and sedated) - Allied Health Allied health notes reviewed: nursing HEART Score - HEART Score Troponin: Troponin T 0.029 ng/mL (0.00-0.029) 03/14/21 10:08 Results - Labs CBC & Chem 7: 03/16/21 07:07 03/16/21 04:30 Labs: Laboratory Last Values WBC 10.0 K/mm3 (4.5-11.0) 03/16/21 07:07 RBC 6.56 M/mm3 (3.65-5.03) H 03/16/21 07:07 Hgb 14.2 gm/dl (11.8-15.2) 03/16/21 07:07 Hct 46.3 % (35.5-45.6) H 03/16/21 07:07 MCV 71 fl (84-94) L 03/16/21 07:07 MCH 22 pg (28-32) L 03/16/21 07:07 MCHC 31 % (32-34) L 03/16/21 07:07 RDW 18.1 % (13.2-15.2) H 03/16/21 07:07 Plt Count 109 K/mm3 (140-440) L 03/16/21 07:07 Lymph % (Auto) 4.4 % (13.4-35.0) L 03/15/21 07:30 Coles % (Auto) 6.5 % (0.0-7.3) 03/15/21 07:30 Eos % (Auto) 0.0 % (0.0-4.3) 03/15/21 07:30 Baso % (Auto) 0.1 % (0.0-1.8) 03/15/21 07:30 Lymph # (Auto) 0.5 K/mm3 (1.2-5.4) L 03/15/21 07:30 Coles # (Auto) 0.7 K/mm3 (0.0-0.8) 03/15/21 07:30 Eos # (Auto) 0.0 K/mm3 (0.0-0.4) 03/15/21 07:30 Baso # (Auto) 0.0 K/mm3 (0.0-0.1) 03/15/21 07:30 Seg Neutrophils % 89.0 % (40.0-70.0) H 03/15/21 07:30 Seg Neutrophils # 10.1 K/mm3 (1.8-7.7) H 03/15/21 07:30 D-Dimer 1938.22 ng/mlDDU (0-234) H 03/14/21 10:08 ABG pH 7.450 pH Units (7.350-7.450) 03/16/21 05:15 POC ABG pCO2 37.2 mmHg (32.0-48.0) 03/15/21 03:07 ABG pCO2 42.1 mm Hg 03/16/21 05:15 POC ABG pO2 92.9 mmHg (83-108) 03/15/21 03:07 ABG pO2 101.6 mm Hg (80.0-90.0) H 03/16/21 05:15 POC ABG HCO3 32.2 03/15/21 03:07 ABG HCO3 28.6 mmol/L (20.0-26.0) H 03/16/21 05:15 ABG O2 Saturation 97.8 % (95.0-99.0) 03/16/21 05:15 ABG O2 Content 19.6 (0.0-44) 03/16/21 05:15 POC ABG Base Excess 9.4 03/15/21 03:07 ABG Base Excess 4.2 mmol/L (-2.0-3.0) H 03/16/21 05:15 ABG Hemoglobin 14.5 gm/dl (14.0-18.0) 03/16/21 05:15 ABG Oxyhemoglobin 97.3 (94-98) 03/15/21 03:07 ABG Carboxyhemoglobin 1.4 % (0.0-5.0) 03/16/21 05:15 ABG Methemoglobin 0.6 % (0.0-1.5) 03/16/21 05:15 ABG Sodium 136.9 mmol/L (136.0-145.0) 03/15/21 03:07 ABG Potassium 4.5 mmol/L (3.40-4.50) 03/15/21 03:07 ABG Chloride 105.0 mmol/L (98-107) 03/15/21 03:07 ABG Glucose 127 mg/dL (65-95) H 03/15/21 03:07 Oxyhemoglobin 95.8 % (95.0-99.0) 03/16/21 05:15 Carboxyhemoglobin 0.7 (0.5-1.5) 03/15/21 03:07 FiO2 45 % 03/16/21 05:15 FiO2 % 85.0 03/15/21 03:07 Sodium 145 mmol/L (137-145) 03/16/21 04:30 Potassium 4.3 mmol/L (3.6-5.0) 03/16/21 04:30 Chloride 109.4 mmol/L (98-107) H 03/16/21 04:30 Carbon Dioxide 27 mmol/L (22-30) 03/16/21 04:30 Anion Gap 13 mmol/L 03/16/21 04:30 BUN 33 mg/dL (9-20) H 03/16/21 04:30 Creatinine 1.1 mg/dL (0.8-1.3) 03/16/21 04:30 Estimated GFR > 60 ml/min 03/16/21 04:30 BUN/Creatinine Ratio 30 % 03/16/21 04:30 Glucose 131 mg/dL (75-100) H 03/16/21 04:30 POC Glucose 137 mg/dL (70-105) H 03/16/21 05:42 Lactic Acid 1.80 mmol/L (0.7-2.0) 03/14/21 23:38 Calcium 7.9 mg/dL (8.4-10.2) L 03/16/21 04:30 Phosphorus 3.20 mg/dL (2.5-4.5) 03/16/21 04:30 Magnesium 2.50 mg/dL (1.7-2.3) H 03/16/21 04:30 Ferritin 46.5 ng/mL (30.0-300.0) 03/14/21 10:54 Total Bilirubin 0.90 mg/dL (0.1-1.2) 03/14/21 10:08 AST 1574 units/L (5-40) H 03/14/21 10:08 ALT 1404 units/L (7-56) H 03/14/21 10:08 Alkaline Phosphatase 124 units/L (35-129) 03/14/21 10:08 Lactate Dehydrogenase 1456 units/L (91-180) H 03/14/21 10:54 Troponin T 0.029 ng/mL (0.00-0.029) 03/14/21 10:08 C-Reactive Protein 7.60 mg/dL (0.00-1.30) H 03/14/21 10:54 NT-Pro-B Natriuret Pep 1073 pg/mL (0-900) H 03/14/21 10:08 Total Protein 7.6 g/dL (6.3-8.2) 03/14/21 10:08 Albumin 3.8 g/dL (3.9-5) L 03/14/21 10:08 Albumin/Globulin Ratio 1.0 % 03/14/21 10:08 Procalcitonin 2.63 ng/mL (<0.15) 03/14/21 10:54 Arterial Blood Glucose 127 mg/dL (65-95) H 03/15/21 03:07 Urine Color Straw (Yellow) 03/14/21 14:39 Urine Turbidity Clear (Clear) 03/14/21 14:39 Urine pH 6.0 (5.0-7.0) 03/14/21 14:39 Ur Specific Murray 1.010 (1.003-1.030) 03/14/21 14:39 Urine Protein 30 mg/dl mg/dL (Negative) 03/14/21 14:39 Urine Glucose (UA) Negative mg/dL (Negative) 03/14/21 14:39 Urine Ketones Negative mg/dL (Negative) 03/14/21 14:39 Urine Blood Small (Negative) A 03/14/21 14:39 Urine Nitrite Negative (Negative) 03/14/21 14:39 Ur Reducing Substances Not Reportable 03/14/21 14:39 Urine Bilirubin Negative (Negative) 03/14/21 14:39 Urine Ictotest Not Reportable 03/14/21 14:39 Urine Urobilinogen Not Reportable 03/14/21 14:39 Ur Leukocyte Esterase Negative (Negative) 03/14/21 14:39 Urine WBC (Auto) 0.0 /HPF (0.0-6.0) 03/14/21 14:39 Urine RBC (Auto) 2.0 /HPF (0.0-6.0) 03/14/21 14:39 U Epithel Cells (Auto) < 1.0 /HPF (0-13.0) 03/14/21 14:39 Coronavirus (PCR) Negative (Negative) 03/15/21 Unknown Blood Type O POSITIVE 03/14/21 13:02 Antibody Screen Negative 03/14/21 13:02 Microbiology: Microbiology 03/14/21 10:08 Peripheral/Venous Blood Culture - Preliminary NO GROWTH AFTER 24 HOURS 03/14/21 10:08 Peripheral/Venous Blood Culture - Preliminary NO GROWTH AFTER 24 HOURS 03/14/21 12:30 Tracheal Aspirate Sputum Culture - Preliminary Benton/IV: Voiding Method Indwelling Catheter Active Medications - Current Medications Current Medications: Generic Name Dose Route Start Last Admin Trade Name Freq PRN Reason Stop Dose Admin Acetaminophen 650 mg 03/14/21 12:04 03/16/21 00:27 Acetaminophen 325 Mg Tab PO 650 mg Q6H PRN Administration Pain MILD(1-3)/Fever >100.5/BAUMAN Albuterol 2.5 mg 03/14/21 12:04 Albuterol 2.5 Mg/3 Ml Nebu IH Q3H PRN Shortness Of Breath Lipase/Protease/Amylase 1 each 03/15/21 11:15 Lipase 10,500/Protease 25,000/Amylase 43,750 (Units) Dr Mata FEEDTUBE PRN PRN For Clogged Feeding Tube Ascorbic Acid 500 mg 03/14/21 22:00 03/16/21 09:42 Ascorbic Acid 500 Mg Tab PO 500 mg BID ARMIRO Administration Cholecalciferol 1,000 unit 03/15/21 10:00 03/16/21 09:42 Cholecalciferol (Vit D3) 1000 Unit (25 Mcg) Tab PO 1,000 unit DAILY RAMIRO Administration Famotidine 20 mg 03/16/21 22:00 Famotidine 20 Mg Tab FEEDTUBE BID RAMIRO Fentanyl 50 mcg 03/14/21 21:23 Fentanyl 100 Mcg/2 Ml Inj IV Q10MIN PRN ANALGESIA Heparin Sodium (Porcine) 5,000 unit 03/14/21 22:00 03/16/21 09:42 Heparin 5,000 Unit/1 Ml Vial SUB-Q 5,000 unit Q12HR RAMIRO Administration Hydrophilic Ointment 1 applic 03/14/21 12:02 Lip Therapy Vaseline TP Q2HR PRN Dry Lips Azithromycin 500 mg in 250 mls @ 250 mls/hr 03/14/21 13:00 03/15/21 14:10 Zithromax/Ns IV 250 mls/hr Q24H RAMIRO Administration Protocol Ceftriaxone Sodium 2 gm in 100 mls @ 200 mls/hr 03/14/21 13:00 03/15/21 14:10 Rocephin/Ns 2 Gm/100 Ml IV 200 mls/hr Q24H RAMIRO Administration Protocol Midazolam HCl 100 mg/ Sodium 100 mls @ 1 mls/hr 03/14/21 22:00 03/16/21 09:49 Chloride IV Infused TITR RAMIRO Titration Protocol 1 MG/HR Fentanyl Citrate 2,000 mcg in 100 mls @ 5.465 mls/hr 03/14/21 22:00 03/16/21 04:20 Fentanyl Drip Premix IV 2 mcg/kg/hr TITR RAMIRO 10.93 mls/hr Administration Protocol 1 MCG/KG/HR Sodium Chloride 1,000 mls @ 100 mls/hr 03/15/21 10:00 03/16/21 08:32 Nacl 0.9% 1000 Ml IV 100 mls/hr DIRECT RAMIRO Administration Lorazepam 2 mg 03/14/21 12:17 03/15/21 08:13 Lorazepam 2 Mg/Ml Vial IV 2 mg Q1H PRN Administration [facility] 8-15 Methylprednisolone Sodium Succinate 40 mg 03/14/21 13:00 03/16/21 04:21 Methylprednisolone Sod Succinate 40 Mg/1 Ml Inj IV 40 mg Q8H RAMIRO Administration Midazolam HCl 2 mg 03/14/21 21:21 Midazolam 2 Mg/2 Ml Inj IV Q10MIN PRN Sedation Multi-Ingred Cream/Lotion/Oil/Oint 1 applic 03/14/21 12:02 Mineral Oil/Petrolatum, White Ophth Oint 3.5 Gm OU Q4HR PRN Dry Eye(s) Senna/Docusate Sodium 1 tab 03/14/21 13:00 03/16/21 09:42 Sennosides/Docusate Sodium 8.6/50 Mg Tab FEEDTUBE 1 tab BID RAMIRO Administration Simple Syrup 15 ml 03/15/21 11:15 Simple Syrup 15 Ml FEEDTUBE PRN PRN Hypoglycemia Simple Syrup 30 ml 03/15/21 11:15 Simple Syrup 15 Ml FEEDTUBE PRN PRN Hypoglycemia Sodium Bicarbonate 325 mg 03/15/21 11:15 Sodium Bicarbonate 325 Mg Tab FEEDTUBE PRN PRN For Clogged Feeding Tube Sodium Chloride 10 ml 03/14/21 22:00 03/16/21 09:43 Sodium Chloride 0.9% 10 Ml Flush Syringe IV 10 ml BID RAMIRO Administration Sodium Chloride 10 ml 03/14/21 12:04 Sodium Chloride 0.9% 10 Ml Flush Syringe IV PRN PRN LINE FLUSH Zinc Sulfate 220 mg 03/14/21 22:00 03/16/21 09:43 Zinc Sulfate 220 Mg Cap PO 220 mg BID RAMIRO Administration Nutrition/Malnutrition Assess - Dietary Evaluation Nutrition/Malnutrition Findings: Nutrition Notes Start: 03/15/21 11:04 Freq: Status: Active Protocol: Document 03/15/21 11:04 ALTA (Rec: 03/15/21 11:15 ALTA [email or web address]) Nutrition Notes Need for Assessment 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: MD Order,hand ii blocker Initial or Follow up Assessment Current Diagnosis Sepsis,Hypertension, Respiratory Failure Other Pertinent Diagnosis Bilat pneu, r/o COVID-19, EtOH dependence Current Diet NPO Labs/Tests BUN 27 Ca 8.1 (adjusted 8.26) Pertinent Medications Vitamins C and D3, zinc sulfate, solumedrol, senokot, NS at 100ml/hr Height 5 ft 8 in Weight 109.3 kg [place] Body Weight (kg) 70.00 BMI 36.6 Weight Status Obese Subjective/Other Information RD consulted to evaluate nutritional intake and for TF; pt also screened for malnutrition and skin risks ( Shekhar score: 12). Pt intubated; hx of medication noncompliance and on CIWA protocol. Burn Absent Trauma Absent Minimum of two criteria No #1 Nutrition Diagnosis Swallowing difficulty Etiology mech ventilation As Evidenced by Signs and Symptoms pt NPO and requires EN support to meet nutrient needs Is patient on ventilator? Yes Is Patient Ambulatory and/or Out of Bed No REE-([facility]-confined to bed) 8639.164 Calculation Used for Recommendations 65-70% energy needs Additional Notes Energy needs: 0301-5799 kcal/ day Pro needs >2g/kg IBW: >140g/ day Fluid needs 1ml/kcal Nutrition Intervention Nutrition Support: Vital HP at 65ml/hr with 50ml water flush q4h. Kcal 1,560 Protein (gm) 137 Carbohydrates (gm) 175 Fat (gm) 36 Fluid (mL) 1,304 Fiber (gm) 0 Goal #1 TF tolerance Goal #2 TF (at goal rate) to meet 65- 70% energy and 80-100% pro needs Anticipated Discharge Needs: Unable to identify at this time Follow-Up By: 03/17/21 Additional Comments F/U: new TF, vent status, COVID-19 status
[2021-03-16] MEDS: AZITHROMYCIN/NS 500 MG/250 ML 500 MG/250 ML BAG IV SCH (12:23)
[2021-03-16] MEDS: cefTRIAXone/NS 2 GM/100 ML 2 GM/100 ML BAG IV SCH (12:24)
--- NOTE | 2021-03-16 12:56 | Progress Note ---
Assessment and Plan - Patient Problems (1) Acute respiratory failure with hypoxia and hypercapnia Current Visit: Yes Status: Acute (2) Multifocal pneumonia Current Visit: Yes Status: Acute (3) Obesity hypoventilation syndrome Current Visit: Yes Status: Acute (4) Sepsis Current Visit: Yes Status: Acute Qualifiers: Sepsis acute organ dysfunction status: with acute organ dysfunction Severe sepsis acute organ dysfunction type: acute respiratory failure Acute respiratory failure type: with hypoxia (5) Suspected COVID-19 virus infection Current Visit: Yes Status: Acute (6) Lactic acidosis Current Visit: Yes Status: Acute (7) Renal insufficiency Current Visit: Yes Status: Acute Subjective Interval history: on vent covid neg Objective Vital Signs - 12hr 03/16/21 03/16/21 03/16/21 01:00 01:30 02:00 Temperature Pulse Rate 81 81 80 Respiratory 24 24 24 Rate Blood Pressure 110/66 109/66 120/69 O2 Sat by Pulse 94 94 96 Oximetry 03/16/21 03/16/21 03/16/21 02:30 03:00 03:28 Temperature 98.7 F Pulse Rate 77 75 Respiratory 24 24 Rate Blood Pressure 127/73 128/71 O2 Sat by Pulse 91 91 Oximetry 03/16/21 03/16/21 03/16/21 03:30 04:00 04:30 Temperature Pulse Rate 74 71 74 Respiratory 24 24 24 Rate Blood Pressure 127/72 129/72 135/75 O2 Sat by Pulse 90 91 92 Oximetry 03/16/21 03/16/21 03/16/21 04:35 05:00 05:30 Temperature Pulse Rate 78 72 71 Respiratory 24 24 Rate Blood Pressure 135/75 139/81 142/81 O2 Sat by Pulse 97 95 89 Oximetry 03/16/21 03/16/21 03/16/21 06:00 06:30 07:00 Temperature Pulse Rate 70 75 71 Respiratory 24 25 H 24 Rate Blood Pressure 147/81 147/78 143/81 O2 Sat by Pulse 91 90 92 Oximetry 03/16/21 03/16/21 03/16/21 07:30 07:32 07:39 Temperature 99.3 F Pulse Rate 69 68 Respiratory 24 Rate Blood Pressure 149/86 149/86 O2 Sat by Pulse 91 97 Oximetry 03/16/21 03/16/21 03/16/21 08:00 08:30 09:00 Temperature Pulse Rate 70 69 69 Respiratory 24 24 24 Rate Blood Pressure 131/78 140/80 141/83 O2 Sat by Pulse 93 91 Oximetry 03/16/21 03/16/21 03/16/21 09:30 10:00 10:30 Temperature Pulse Rate 68 70 67 Respiratory 24 24 24 Rate Blood Pressure 143/81 140/84 137/83 O2 Sat by Pulse 95 92 Oximetry 03/16/21 03/16/21 03/16/21 11:00 11:30 12:00 Temperature Pulse Rate 68 70 67 Respiratory 24 24 24 Rate Blood Pressure 148/85 144/86 149/85 O2 Sat by Pulse 90 93 91 Oximetry 03/16/21 03/16/21 03/16/21 12:07 12:16 12:30 Temperature 98.8 F Pulse Rate 68 69 Respiratory 24 Rate Blood Pressure 149/85 144/83 O2 Sat by Pulse 97 92 Oximetry Constitutional: other (on vent AC 75% r 24 tv 500 p 8 mv 12) ENT: oropharynx moist Ascultation: Bilateral: diminished breath sounds Cardiovascular: regular rate and rhythm Gastrointestinal: normoactive bowel sounds, soft, non-tender CBC and BMP: 03/16/21 07:07 03/16/21 04:30 ABG, PT/INR, D-dimer: ABG ABG pH 7.450 pH Units (7.350-7.450) 03/16/21 05:15 POC ABG pCO2 37.2 mmHg (32.0-48.0) 03/15/21 03:07 ABG pCO2 42.1 mm Hg 03/16/21 05:15 POC ABG pO2 92.9 mmHg (83-108) 03/15/21 03:07 ABG pO2 101.6 mm Hg (80.0-90.0) H 03/16/21 05:15 POC ABG HCO3 32.2 03/15/21 03:07 ABG O2 Saturation 97.8 % (95.0-99.0) 03/16/21 05:15 PT/INR, D-dimer D-Dimer 1938.22 ng/mlDDU (0-234) H 03/14/21 10:08 Abnormal lab findings: Abnormal Labs 03/14/21 03/14/21 03/14/21 10:02 10:08 10:08 WBC 11.6 H RBC 6.66 H Hct 48.5 H MCV 73 L MCH 21 L MCHC 29 L RDW 19.0 H Plt Count Lymph % (Auto) 9.5 L Lares % (Auto) 11.4 H Lymph # (Auto) 1.1 L Lares # (Auto) 1.3 H Seg Neutrophils % 79.0 H Seg Neutrophils # 9.2 H D-Dimer ABG pH ABG pO2 ABG HCO3 ABG Base Excess ABG Hemoglobin ABG Glucose Oxyhemoglobin Potassium 5.8 H Chloride BUN 37 H Creatinine 1.4 H Glucose 133 H POC Glucose 128 H Lactic Acid Calcium 8.1 L Magnesium AST 1574 H ALT 1404 H Lactate Dehydrogenase C-Reactive Protein NT-Pro-B Natriuret Pep Albumin 3.8 L Arterial Blood Glucose Urine Blood 03/14/21 03/14/21 03/14/21 10:08 10:08 10:54 WBC RBC Hct MCV MCH MCHC RDW Plt Count Lymph % (Auto) Lares % (Auto) Lymph # (Auto) Lares # (Auto) Seg Neutrophils % Seg Neutrophils # D-Dimer 1938.22 H ABG pH ABG pO2 ABG HCO3 ABG Base Excess ABG Hemoglobin ABG Glucose Oxyhemoglobin Potassium Chloride BUN Creatinine Glucose 162 H POC Glucose Lactic Acid Calcium Magnesium AST ALT Lactate Dehydrogenase 1456 H C-Reactive Protein 7.60 H NT-Pro-B Natriuret Pep 1073 H Albumin Arterial Blood Glucose Urine Blood 03/14/21 03/14/21 03/14/21 11:10 12:10 13:02 WBC RBC Hct MCV MCH MCHC RDW Plt Count Lymph % (Auto) Lares % (Auto) Lymph # (Auto) Lares # (Auto) Seg Neutrophils % Seg Neutrophils # D-Dimer ABG pH 6.994 L* 7.219 L ABG pO2 148.4 H 97.8 H ABG HCO3 37.6 H 28.6 H ABG Base Excess ABG Hemoglobin 12.9 L ABG Glucose Oxyhemoglobin 94.9 L 94.0 L Potassium Chloride BUN Creatinine Glucose POC Glucose Lactic Acid 2.20 H* Calcium Magnesium AST ALT Lactate Dehydrogenase C-Reactive Protein NT-Pro-B Natriuret Pep Albumin Arterial Blood Glucose Urine Blood 03/14/21 03/15/21 03/15/21 14:39 03:07 07:30 WBC 11.3 H RBC 6.73 H Hct 47.7 H MCV 71 L MCH 21 L MCHC 30 L RDW 18.2 H Plt Count Lymph % (Auto) 4.4 L Lares % (Auto) Lymph # (Auto) 0.5 L Lares # (Auto) Seg Neutrophils % 89.0 H Seg Neutrophils # 10.1 H D-Dimer ABG pH 7.555 H ABG pO2 ABG HCO3 ABG Base Excess ABG Hemoglobin ABG Glucose 127 H Oxyhemoglobin Potassium Chloride BUN Creatinine Glucose POC Glucose Lactic Acid Calcium Magnesium AST ALT Lactate Dehydrogenase C-Reactive Protein NT-Pro-B Natriuret Pep Albumin Arterial Blood Glucose 127 H Urine Blood Small A 03/15/21 03/15/21 03/15/21 07:30 17:12 23:49 WBC RBC Hct MCV MCH MCHC RDW Plt Count Lymph % (Auto) Lares % (Auto) Lymph # (Auto) Lares # (Auto) Seg Neutrophils % Seg Neutrophils # D-Dimer ABG pH ABG pO2 ABG HCO3 ABG Base Excess ABG Hemoglobin ABG Glucose Oxyhemoglobin Potassium Chloride BUN 27 H Creatinine Glucose 115 H POC Glucose 129 H 140 H Lactic Acid Calcium 8.1 L Magnesium AST ALT Lactate Dehydrogenase C-Reactive Protein NT-Pro-B Natriuret Pep Albumin Arterial Blood Glucose Urine Blood 03/16/21 03/16/21 03/16/21 04:30 05:15 05:42 WBC RBC Hct MCV MCH MCHC RDW Plt Count Lymph % (Auto) Lares % (Auto) Lymph # (Auto) Lares # (Auto) Seg Neutrophils % Seg Neutrophils # D-Dimer ABG pH ABG pO2 101.6 H ABG HCO3 28.6 H ABG Base Excess 4.2 H ABG Hemoglobin ABG Glucose Oxyhemoglobin Potassium Chloride 109.4 H BUN 33 H Creatinine Glucose 131 H POC Glucose 137 H Lactic Acid Calcium 7.9 L Magnesium 2.50 H AST ALT Lactate Dehydrogenase C-Reactive Protein NT-Pro-B Natriuret Pep Albumin Arterial Blood Glucose Urine Blood 03/16/21 03/16/21 07:07 11:28 WBC RBC 6.56 H Hct 46.3 H MCV 71 L MCH 22 L MCHC 31 L RDW 18.1 H Plt Count 109 L Lymph % (Auto) Lares % (Auto) Lymph # (Auto) Lares # (Auto) Seg Neutrophils % Seg Neutrophils # D-Dimer ABG pH ABG pO2 ABG HCO3 ABG Base Excess ABG Hemoglobin ABG Glucose Oxyhemoglobin Potassium Chloride BUN Creatinine Glucose POC Glucose 167 H Lactic Acid Calcium Magnesium AST ALT Lactate Dehydrogenase C-Reactive Protein NT-Pro-B Natriuret Pep Albumin Arterial Blood Glucose Urine Blood Chest x-ray: image reviewed
--- NOTE | 2021-03-16 14:21 | Progress Note ---
Assessment and Plan Cultures: Blood culture no growth so far. COVID: negative A/P: 55-year-old man past medical history hypertension obesity, alcohol depende nce admitted as COVID PUI #COVID PUI:PCR negative #Acute hypoxic respiratory failure: PNA vs COVID #Obesity #EtOH dependence Recs: -Continue ceftriaxone and azithromycin for now given elevated procalcitonin -Anticoagulation per hospital protocol. Thank you for the consult, we will continue to follow. Mari Herrera MD [facility] ([facility]) O: [phone] F: [phone] Subjective Date of service: 03/16/21 Interval history: Febrile overnight but afebrile since then. White count now normalized at 10. All cultures remain negative at present time. Remains on the vent. Imaging personally reviewed: Chest x-ray: No significant change. Objective - Exam Narrative Exam: Physical exam deferred to reduce risk of transmission of COVID-19. Please refer to primary team's note. - Constitutional Vitals: Vital Signs Temp Pulse Resp BP Pulse Ox 98.8 F 70 24 144/83 97 03/16/21 12:16 03/16/21 13:09 03/16/21 13:09 03/16/21 12:30 03/16/21 13:09 Temperature -Last 24 Hours Temperature 98.8 F Temperature 99.3 F Temperature 98.7 F Temperature 103.1 F Temperature 101.7 F Temperature 100.2 F - Labs CBC & Chem 7: 03/16/21 07:07 03/16/21 04:30 Labs: Abnormal lab results 03/15/21 03/15/21 03/16/21 Range/Units 17:12 23:49 04:30 RBC (3.65-5.03) M/mm3 Hct (35.5-45.6) % MCV (84-94) fl MCH (28-32) pg MCHC (32-34) % RDW (13.2-15.2) % Plt Count (140-440) K/mm3 ABG pO2 (80.0-90.0) mm Hg ABG HCO3 (20.0-26.0) mmol/L ABG Base Excess (-2.0-3.0) mmol/L Chloride 109.4 H (98-107) mmol/L BUN 33 H (9-20) mg/dL Glucose 131 H (75-100) mg/dL POC Glucose 129 H 140 H (70-105) mg/dL Calcium 7.9 L (8.4-10.2) mg/dL Magnesium 2.50 H (1.7-2.3) mg/dL 03/16/21 03/16/21 03/16/21 Range/Units 05:15 05:42 07:07 RBC 6.56 H (3.65-5.03) M/mm3 Hct 46.3 H (35.5-45.6) % MCV 71 L (84-94) fl MCH 22 L (28-32) pg MCHC 31 L (32-34) % RDW 18.1 H (13.2-15.2) % Plt Count 109 L (140-440) K/mm3 ABG pO2 101.6 H (80.0-90.0) mm Hg ABG HCO3 28.6 H (20.0-26.0) mmol/L ABG Base Excess 4.2 H (-2.0-3.0) mmol/L Chloride (98-107) mmol/L BUN (9-20) mg/dL Glucose (75-100) mg/dL POC Glucose 137 H (70-105) mg/dL Calcium (8.4-10.2) mg/dL Magnesium (1.7-2.3) mg/dL 03/16/21 Range/Units 11:28 RBC (3.65-5.03) M/mm3 Hct (35.5-45.6) % MCV (84-94) fl MCH (28-32) pg MCHC (32-34) % RDW (13.2-15.2) % Plt Count (140-440) K/mm3 ABG pO2 (80.0-90.0) mm Hg ABG HCO3 (20.0-26.0) mmol/L ABG Base Excess (-2.0-3.0) mmol/L Chloride (98-107) mmol/L BUN (9-20) mg/dL Glucose (75-100) mg/dL POC Glucose 167 H (70-105) mg/dL Calcium (8.4-10.2) mg/dL Magnesium (1.7-2.3) mg/dL
[2021-03-16] MEDS: FAMOTIDINE 20 MG TAB FEEDTUBE SCH (21:03)
[2021-03-17 04:28] LABS: Mean Corpuscular HGB Conc 30 % (32-34); Mean Corpuscular Volume 71 fl (84-94); Red Blood Count 6.52 M/mm3 (3.65-5.03); Red Cell Distribution Width 18.2 % (13.2-15.2)
[2021-03-17 04:33] LABS: Hematocrit 46.1 % (35.5-45.6); Hemoglobin 13.6 gm/dl (11.8-15.2)
[2021-03-17 04:34] LABS: Platelet Count 85 K/mm3 (140-440)
--- NOTE | 2021-03-17 04:38 | XRay Report ---
CHEST 1 VIEW 03/17/2021 3:18 AM INDICATION / CLINICAL INFORMATION: follow up respiratory failure. COMPARISON: 03/16/21 FINDINGS: SUPPORT DEVICES: Unchanged. HEART / MEDIASTINUM: Stable. LUNGS / PLEURA: Mild bibasilar densities are stable. No pneumothorax. ADDITIONAL FINDINGS: No significant additional findings. IMPRESSION: 1. No significant change. Signer Name: Elise Kong MD Signed: 03/17/2021 4:34 AM Workstation Name: [id number]
[2021-03-17 04:47] LABS: BUN/Creatinine Ratio 37; Blood Urea Nitrogen 33 mg/dL (9-20); Calcium 7.7 mg/dL (8.4-10.2); Hemolysis Index 18
[2021-03-17] MEDS: fentaNYL DRIP Premix 2,000 MCG/100 ML BAG IV SCH (05:41)
[2021-03-17] MEDS: SODIUM CHLORIDE 0.9% 1000 ML 1,000 ML IV SCH (05:43)
--- NOTE | 2021-03-17 09:04 | Progress Note ---
Assessment and Plan - Patient Problems (1) Acute respiratory failure with hypoxia and hypercapnia Current Visit: Yes Status: Acute (2) Multifocal pneumonia Current Visit: Yes Status: Acute (3) Obesity hypoventilation syndrome Current Visit: Yes Status: Acute (4) Sepsis Current Visit: Yes Status: Acute Qualifiers: Sepsis acute organ dysfunction status: with acute organ dysfunction Severe sepsis acute organ dysfunction type: acute respiratory failure Acute respiratory failure type: with hypoxia (5) Suspected COVID-19 virus infection Current Visit: Yes Status: Ruled-out (6) Lactic acidosis Current Visit: Yes Status: Acute (7) Renal insufficiency Current Visit: Yes Status: Acute (8) Thrombocythemia Current Visit: Yes Status: Acute (9) Alcohol abuse Current Visit: Yes Status: Acute Subjective Interval history: on vent On ac 500 p8 fio2 35% Objective Vital Signs - 12hr 03/16/21 03/16/21 03/16/21 21:30 22:00 22:30 Temperature Pulse Rate 67 67 67 Respiratory 25 H 24 24 Rate Blood Pressure 143/82 148/81 155/82 O2 Sat by Pulse 100 93 86 Oximetry 03/16/21 03/16/21 03/16/21 23:00 23:30 23:46 Temperature Pulse Rate 67 70 70 Respiratory 24 24 Rate Blood Pressure 148/79 138/76 128/76 O2 Sat by Pulse 92 98 98 Oximetry 03/17/21 03/17/21 03/17/21 00:00 00:06 00:30 Temperature 99.2 F Pulse Rate 70 73 70 Respiratory 24 24 24 Rate Blood Pressure 140/75 140/75 139/77 O2 Sat by Pulse 91 97 91 Oximetry 03/17/21 03/17/21 03/17/21 01:00 01:30 02:00 Temperature Pulse Rate 70 77 Respiratory 24 24 Rate Blood Pressure 143/81 139/77 141/95 O2 Sat by Pulse 91 93 Oximetry 03/17/21 03/17/21 03/17/21 02:30 03:00 03:30 Temperature Pulse Rate 71 71 75 Respiratory 24 24 16 Rate Blood Pressure 152/98 155/100 162/99 O2 Sat by Pulse 95 95 96 Oximetry 03/17/21 03/17/21 03/17/21 03:43 03:44 04:00 Temperature Pulse Rate 71 70 70 Respiratory 24 Rate Blood Pressure 162/99 159/97 O2 Sat by Pulse 97 96 Oximetry 03/17/21 03/17/21 03/17/21 04:30 05:00 05:30 Temperature Pulse Rate 69 72 73 Respiratory 24 24 24 Rate Blood Pressure 163/99 156/94 150/93 O2 Sat by Pulse 96 97 97 Oximetry 03/17/21 03/17/21 03/17/21 06:00 06:30 07:00 Temperature Pulse Rate 72 75 73 Respiratory 24 24 21 Rate Blood Pressure 147/90 148/91 157/97 O2 Sat by Pulse 96 96 96 Oximetry 03/17/21 03/17/21 03/17/21 07:30 08:00 08:08 Temperature Pulse Rate 72 72 76 Respiratory 24 24 Rate Blood Pressure 147/92 148/93 148/93 O2 Sat by Pulse 96 97 98 Oximetry 03/17/21 03/17/21 08:30 09:00 Temperature Pulse Rate 75 75 Respiratory 24 24 Rate Blood Pressure 145/91 146/90 O2 Sat by Pulse 96 Oximetry Constitutional: other (on vent AC 35% r 24 tv 500 p 8 mv 12) ENT: oropharynx moist Ascultation: Bilateral: diminished breath sounds Cardiovascular: regular rate and rhythm Gastrointestinal: normoactive bowel sounds, soft, non-tender CBC and BMP: 03/17/21 03:30 03/17/21 03:30 ABG, PT/INR, D-dimer: ABG ABG pH 7.450 pH Units (7.350-7.450) 03/16/21 05:15 POC ABG pCO2 37.2 mmHg (32.0-48.0) 03/15/21 03:07 ABG pCO2 42.1 mm Hg 03/16/21 05:15 POC ABG pO2 92.9 mmHg (83-108) 03/15/21 03:07 ABG pO2 101.6 mm Hg (80.0-90.0) H 03/16/21 05:15 POC ABG HCO3 32.2 03/15/21 03:07 ABG O2 Saturation 97.8 % (95.0-99.0) 03/16/21 05:15 PT/INR, D-dimer D-Dimer 1938.22 ng/mlDDU (0-234) H 03/14/21 10:08 Abnormal lab findings: Abnormal Labs 03/14/21 03/14/21 03/14/21 10:02 10:08 10:08 WBC 11.6 H RBC 6.66 H Hct 48.5 H MCV 73 L MCH 21 L MCHC 29 L RDW 19.0 H Plt Count Lymph % (Auto) 9.5 L [place] % (Auto) 11.4 H Lymph # (Auto) 1.1 L [place] # (Auto) 1.3 H Seg Neutrophils % 79.0 H Seg Neutrophils # 9.2 H D-Dimer ABG pH ABG pO2 ABG HCO3 ABG Base Excess ABG Hemoglobin ABG Glucose Oxyhemoglobin Sodium Potassium 5.8 H Chloride BUN 37 H Creatinine 1.4 H Glucose 133 H POC Glucose 128 H Lactic Acid Calcium 8.1 L Magnesium AST 1574 H ALT 1404 H Lactate Dehydrogenase C-Reactive Protein NT-Pro-B Natriuret Pep Albumin 3.8 L Arterial Blood Glucose Urine Blood 03/14/21 03/14/21 03/14/21 10:08 10:08 10:54 WBC RBC Hct MCV MCH MCHC RDW Plt Count Lymph % (Auto) [place] % (Auto) Lymph # (Auto) [place] # (Auto) Seg Neutrophils % Seg Neutrophils # D-Dimer 1938.22 H ABG pH ABG pO2 ABG HCO3 ABG Base Excess ABG Hemoglobin ABG Glucose Oxyhemoglobin Sodium Potassium Chloride BUN Creatinine Glucose 162 H POC Glucose Lactic Acid Calcium Magnesium AST ALT Lactate Dehydrogenase 1456 H C-Reactive Protein 7.60 H NT-Pro-B Natriuret Pep 1073 H Albumin Arterial Blood Glucose Urine Blood 03/14/21 03/14/21 03/14/21 11:10 12:10 13:02 WBC RBC Hct MCV MCH MCHC RDW Plt Count Lymph % (Auto) [place] % (Auto) Lymph # (Auto) [place] # (Auto) Seg Neutrophils % Seg Neutrophils # D-Dimer ABG pH 6.994 L* 7.219 L ABG pO2 148.4 H 97.8 H ABG HCO3 37.6 H 28.6 H ABG Base Excess ABG Hemoglobin 12.9 L ABG Glucose Oxyhemoglobin 94.9 L 94.0 L Sodium Potassium Chloride BUN Creatinine Glucose POC Glucose Lactic Acid 2.20 H* Calcium Magnesium AST ALT Lactate Dehydrogenase C-Reactive Protein NT-Pro-B Natriuret Pep Albumin Arterial Blood Glucose Urine Blood 03/14/21 03/15/21 03/15/21 14:39 03:07 07:30 WBC 11.3 H RBC 6.73 H Hct 47.7 H MCV 71 L MCH 21 L MCHC 30 L RDW 18.2 H Plt Count Lymph % (Auto) 4.4 L [place] % (Auto) Lymph # (Auto) 0.5 L [place] # (Auto) Seg Neutrophils % 89.0 H Seg Neutrophils # 10.1 H D-Dimer ABG pH 7.555 H ABG pO2 ABG HCO3 ABG Base Excess ABG Hemoglobin ABG Glucose 127 H Oxyhemoglobin Sodium Potassium Chloride BUN Creatinine Glucose POC Glucose Lactic Acid Calcium Magnesium AST ALT Lactate Dehydrogenase C-Reactive Protein NT-Pro-B Natriuret Pep Albumin Arterial Blood Glucose 127 H Urine Blood Small A 03/15/21 03/15/21 03/15/21 07:30 17:12 23:49 WBC RBC Hct MCV MCH MCHC RDW Plt Count Lymph % (Auto) [place] % (Auto) Lymph # (Auto) [place] # (Auto) Seg Neutrophils % Seg Neutrophils # D-Dimer ABG pH ABG pO2 ABG HCO3 ABG Base Excess ABG Hemoglobin ABG Glucose Oxyhemoglobin Sodium Potassium Chloride BUN 27 H Creatinine Glucose 115 H POC Glucose 129 H 140 H Lactic Acid Calcium 8.1 L Magnesium AST ALT Lactate Dehydrogenase C-Reactive Protein NT-Pro-B Natriuret Pep Albumin Arterial Blood Glucose Urine Blood 03/16/21 03/16/21 03/16/21 04:30 05:15 05:42 WBC RBC Hct MCV MCH MCHC RDW Plt Count Lymph % (Auto) [place] % (Auto) Lymph # (Auto) [place] # (Auto) Seg Neutrophils % Seg Neutrophils # D-Dimer ABG pH ABG pO2 101.6 H ABG HCO3 28.6 H ABG Base Excess 4.2 H ABG Hemoglobin ABG Glucose Oxyhemoglobin Sodium Potassium Chloride 109.4 H BUN 33 H Creatinine Glucose 131 H POC Glucose 137 H Lactic Acid Calcium 7.9 L Magnesium 2.50 H AST ALT Lactate Dehydrogenase C-Reactive Protein NT-Pro-B Natriuret Pep Albumin Arterial Blood Glucose Urine Blood 03/16/21 03/16/21 03/16/21 07:07 11:28 17:42 WBC RBC 6.56 H Hct 46.3 H MCV 71 L MCH 22 L MCHC 31 L RDW 18.1 H Plt Count 109 L Lymph % (Auto) [place] % (Auto) Lymph # (Auto) [place] # (Auto) Seg Neutrophils % Seg Neutrophils # D-Dimer ABG pH ABG pO2 ABG HCO3 ABG Base Excess ABG Hemoglobin ABG Glucose Oxyhemoglobin Sodium Potassium Chloride BUN Creatinine Glucose POC Glucose 167 H 141 H Lactic Acid Calcium Magnesium AST ALT Lactate Dehydrogenase C-Reactive Protein NT-Pro-B Natriuret Pep Albumin Arterial Blood Glucose Urine Blood 03/16/21 03/17/21 03/17/21 23:24 03:30 03:30 WBC 11.1 H RBC 6.52 H Hct 46.1 H MCV 71 L MCH 21 L MCHC 30 L RDW 18.2 H Plt Count 85 L Lymph % (Auto) [place] % (Auto) Lymph # (Auto) [place] # (Auto) Seg Neutrophils % Seg Neutrophils # D-Dimer ABG pH ABG pO2 ABG HCO3 ABG Base Excess ABG Hemoglobin ABG Glucose Oxyhemoglobin Sodium 148 H Potassium Chloride 111.9 H BUN 33 H Creatinine Glucose 115 H POC Glucose 134 H Lactic Acid Calcium 7.7 L Magnesium AST ALT Lactate Dehydrogenase C-Reactive Protein NT-Pro-B Natriuret Pep Albumin Arterial Blood Glucose Urine Blood 03/17/21 06:11 WBC RBC Hct MCV MCH MCHC RDW Plt Count Lymph % (Auto) [place] % (Auto) Lymph # (Auto) [place] # (Auto) Seg Neutrophils % Seg Neutrophils # D-Dimer ABG pH ABG pO2 ABG HCO3 ABG Base Excess ABG Hemoglobin ABG Glucose Oxyhemoglobin Sodium Potassium Chloride BUN Creatinine Glucose POC Glucose 121 H Lactic Acid Calcium Magnesium AST ALT Lactate Dehydrogenase C-Reactive Protein NT-Pro-B Natriuret Pep Albumin Arterial Blood Glucose Urine Blood
[2021-03-17] MEDS: FAMOTIDINE 20 MG TAB FEEDTUBE SCH ×2 (09:34→21:25)
[2021-03-17] MEDS: HEPARIN 5,000 UNIT/1 ML VIAL SUB-Q SCH (09:34)
[2021-03-17] MEDS: SENNOSIDES/DOCUSATE SODIUM 8.6/50 MG TAB FEEDTUBE SCH ×2 (09:34→21:25)
[2021-03-17 09:39] LABS: ABG Base Excess 2.1 mmol/L (-2.0-3.0); ABG HCO3 26.1 mmol/L (20.0-26.0); ABG Methemoglobin 0.5 % (0.0-1.5); ABG Oxygen Saturation 96.8 % (95.0-99.0); ABG PCO2 38.6 mm Hg; ABG PH 7.447 pH Units (7.350-7.450); ABG PO2 82.4 mm Hg (80.0-90.0)
[2021-03-17] MEDS: AZITHROMYCIN/NS 500 MG/250 ML 500 MG/250 ML BAG IV SCH (12:45)
--- NOTE | 2021-03-17 12:52 | Progress Note ---
Assessment and Plan Assessment and plan: This is a 50-fivwm-orc male with past medical history of HTN, Obesity Hypoventilation Syndrome, ETOH Dependence, and noncompliance with meds who came in via EMS due to respiratory distress and hypoxia. Patient was intubated in the ED due to acute hypoxic respiratory failure. Patient was admitted in the ICU for further management. Hospital Course to Date: 03/15/21- Patient is on the vent and sedated. Off dopamine, maintaining MAP above 65. Titrate sedation for RASS goal 0 to -2. Continue hydration with NS @100ml/hr. Enteral nutrition initiated. 03/16/21- Patient remains on the vent, on fentanyl and Versed, RASS -4. Plan to weaned sedation off sedation for possible SAT. Patient was febrile overnight TMAX 103.1, WBCs wnl, on IV Abx, and ID is following. Will continue to trend CBC 03/17/21- Patient remains on the vent and sedated. Plan for SAT and CPAP trial today. Thrombocytopenia noted form this am lab, HIT panel ordered. D/w CCM will hold heparin for now. Persistent low grade fevers overnight, will check BLE doppler to R/O DVT Assessment and Plan #Acute Metabolic Encephalopathy #ETOH Dependence - Patient is intubated and sedated - On versed and Fentanyl, RASS 0-2 - Titrate sedation for RASS goal of 0 to -2 - Possible SAT and CPAP today - Daily SAT and SBT per CCM - Avoid benzodiazepine's, reduce the possibility of delirium - Prn analgesia for CPOT greater than 3 - Maintenance of sleep-wake cycle #CV:Hypotension- resolved #Septic Shock #Metabolic Acidosis- improved #Lactic Acidosis- resolved - Was on dopamine gtt in the ED, now on hold - Normotensive now - Received Sepsis Bolus in the ED - Acidosis improved - Maintain adequate perfusion - IVF D/C - Continue blood pressure monitor per protocol - Maintain MAP above 65 - Consider Levophed vs dopamine if hypotensive - Continue AC- Hep SubQ and SCDs for VTE proph #Acute Hypoxic Respiratory Failure 2/2 PNA - 03/14 CXR- Patchy bilateral pulmonary opacities - 03/15 CXR- No significant change - COVID swab negative - Intubated on 03/14 - Vent Setting: PRVC- 35%,8,24,500 - AM ABG noted - CCM consulted, appreciate recommendations - VAP bundle addressed - Aspiration precaution HOB above 30 - Daily SBT and SAT trials as tolerated - Daily ABG and CXR - Continue SPO2 monitoring for SPO2 goal above 92% #GI: TF - Enteral nutrition intiated - Nutrition on consult - Continue IVF - Continue BR- senokot - Continue PPI- Pepcid #: Hypernatremia - Initial Cr. 1.4, 1.1 this am - Na 148 this am - Continuous IVF D/C - Strict intake and output - Avoid nephrotoxic medications; Renally dose medications - Benton in place, net +1.1L in last 24hrs - Monitor and replace electrolytes as needed #ID:Sepsis #Lactic Acidosis- resolved #Metabolic Acidosis- resolved #CAP - 03/14 CXR- Patchy bilateral pulmonary opacities - 03/15 CXR- No significant change - COVID swab negative - 02/11 B.CultX2 with no conrad as to date; 02/11 Sputum Cult pending - Lactic down from 2.2---> 1.80 - Febrile overnight, TMAX 100.5 - Wbcs downtrending 10 today - Procal 2.73, CRP 7.60 - Continue IV ABx- Rocephin and Azithromycin per ID - Continue to F/U on B.cult - Daily CBC monitor - ID on consult #Endo:Glycemic Control - POCT Q6hrs while on TF - While critically ill target blood glucose of 140-180 - Avoid hypoglycemia The high probability of a clinically significant, sudden or life threatening deterioration of the [multiple] system(s) required my full and direct attention, intervention and personal management. The aggregate critical care time was [60] minutes. This time is in addition to time spent performing reported procedures but includes the following: [x] Data Review and interpretation [x] Patient assessment and monitoring of vital signs [x] Documentation [x] Medication orders and management Disposition Plan: ICU Total Time Spent with Patient (Minutes): 60 History Interval history: Patient is seen and examined at the bedside. Intubated and sedated on versed and fentanyl, RASS -2. LUIS ANTONIO overnight Hospitalist Physical - Constitutional Vitals: Temp Pulse Resp BP Pulse Ox 99.2 F 78 24 157/99 95 03/17/21 00:00 03/17/21 10:30 03/17/21 10:30 03/17/21 10:30 03/17/21 10:00 General appearance: Present: no acute distress, other (Intubated and sedated) - EENT Eyes: Present: PERRL - Respiratory Respiratory effort: normal Respiratory: bilateral: diminished - Cardiovascular Rhythm: regular Heart Sounds: Present: S1 & S2 - Extremities Extremities: no ischemia, pulses intact, pulses symmetrical Peripheral Pulses: within normal limits - Abdominal General gastrointestinal: soft, non-tender, normal bowel sounds - Integumentary Integumentary: Present: clear, warm, dry - Psychiatric Psychiatric: other (Intubated and sedated) - Neurologic Neurologic: other (Intubated and sedated) - Allied Health Allied health notes reviewed: nursing HEART Score - HEART Score Troponin: Troponin T 0.029 ng/mL (0.00-0.029) 03/14/21 10:08 Results - Labs CBC & Chem 7: 03/17/21 03:30 03/17/21 03:30 Labs: Laboratory Last Values WBC 11.1 K/mm3 (4.5-11.0) H 03/17/21 03:30 RBC 6.52 M/mm3 (3.65-5.03) H 03/17/21 03:30 Hgb 13.6 gm/dl (11.8-15.2) 03/17/21 03:30 Hct 46.1 % (35.5-45.6) H 03/17/21 03:30 MCV 71 fl (84-94) L 03/17/21 03:30 MCH 21 pg (28-32) L 03/17/21 03:30 MCHC 30 % (32-34) L 03/17/21 03:30 RDW 18.2 % (13.2-15.2) H 03/17/21 03:30 Plt Count 85 K/mm3 (140-440) L 03/17/21 03:30 Lymph % (Auto) 4.4 % (13.4-35.0) L 03/15/21 07:30 Leslie % (Auto) 6.5 % (0.0-7.3) 03/15/21 07:30 Eos % (Auto) 0.0 % (0.0-4.3) 03/15/21 07:30 Baso % (Auto) 0.1 % (0.0-1.8) 03/15/21 07:30 Lymph # (Auto) 0.5 K/mm3 (1.2-5.4) L 03/15/21 07:30 Leslie # (Auto) 0.7 K/mm3 (0.0-0.8) 03/15/21 07:30 Eos # (Auto) 0.0 K/mm3 (0.0-0.4) 03/15/21 07:30 Baso # (Auto) 0.0 K/mm3 (0.0-0.1) 03/15/21 07:30 Seg Neutrophils % 89.0 % (40.0-70.0) H 03/15/21 07:30 Seg Neutrophils # 10.1 K/mm3 (1.8-7.7) H 03/15/21 07:30 D-Dimer 1938.22 ng/mlDDU (0-234) H 03/14/21 10:08 ABG pH 7.447 pH Units (7.350-7.450) 03/17/21 09:20 POC ABG pCO2 37.2 mmHg (32.0-48.0) 03/15/21 03:07 ABG pCO2 38.6 mm Hg 03/17/21 09:20 POC ABG pO2 92.9 mmHg (83-108) 03/15/21 03:07 ABG pO2 82.4 mm Hg (80.0-90.0) 03/17/21 09:20 POC ABG HCO3 32.2 03/15/21 03:07 ABG HCO3 26.1 mmol/L (20.0-26.0) H 03/17/21 09:20 ABG O2 Saturation 96.8 % (95.0-99.0) 03/17/21 09:20 ABG O2 Content 18.9 (0.0-44) 03/17/21 09:20 POC ABG Base Excess 9.4 03/15/21 03:07 ABG Base Excess 2.1 mmol/L (-2.0-3.0) 03/17/21 09:20 ABG Hemoglobin 14.2 gm/dl (14.0-18.0) 03/17/21 09:20 ABG Oxyhemoglobin 97.3 (94-98) 03/15/21 03:07 ABG Carboxyhemoglobin 1.9 % (0.0-5.0) 03/17/21 09:20 ABG Methemoglobin 0.5 % (0.0-1.5) 03/17/21 09:20 ABG Sodium 136.9 mmol/L (136.0-145.0) 03/15/21 03:07 ABG Potassium 4.5 mmol/L (3.40-4.50) 03/15/21 03:07 ABG Chloride 105.0 mmol/L (98-107) 03/15/21 03:07 ABG Glucose 127 mg/dL (65-95) H 03/15/21 03:07 Oxyhemoglobin 94.5 % (95.0-99.0) L 03/17/21 09:20 Carboxyhemoglobin 0.7 (0.5-1.5) 03/15/21 03:07 FiO2 33 % 03/17/21 09:20 FiO2 % 85.0 03/15/21 03:07 Sodium 148 mmol/L (137-145) H 03/17/21 03:30 Potassium 4.2 mmol/L (3.6-5.0) 03/17/21 03:30 Chloride 111.9 mmol/L (98-107) H 03/17/21 03:30 Carbon Dioxide 26 mmol/L (22-30) 03/17/21 03:30 Anion Gap 14 mmol/L 03/17/21 03:30 BUN 33 mg/dL (9-20) H 03/17/21 03:30 Creatinine 0.9 mg/dL (0.8-1.3) 03/17/21 03:30 Estimated GFR > 60 ml/min 03/17/21 03:30 BUN/Creatinine Ratio 37 % 03/17/21 03:30 Glucose 115 mg/dL (75-100) H 03/17/21 03:30 POC Glucose 121 mg/dL (70-105) H 03/17/21 06:11 Lactic Acid 1.80 mmol/L (0.7-2.0) 03/14/21 23:38 Calcium 7.7 mg/dL (8.4-10.2) L 03/17/21 03:30 Phosphorus 3.20 mg/dL (2.5-4.5) 03/16/21 04:30 Magnesium 2.50 mg/dL (1.7-2.3) H 03/16/21 04:30 Ferritin 46.5 ng/mL (30.0-300.0) 03/14/21 10:54 Total Bilirubin 0.90 mg/dL (0.1-1.2) 03/14/21 10:08 AST 1574 units/L (5-40) H 03/14/21 10:08 ALT 1404 units/L (7-56) H 03/14/21 10:08 Alkaline Phosphatase 124 units/L (35-129) 03/14/21 10:08 Lactate Dehydrogenase 1456 units/L (91-180) H 03/14/21 10:54 Troponin T 0.029 ng/mL (0.00-0.029) 03/14/21 10:08 C-Reactive Protein 7.60 mg/dL (0.00-1.30) H 03/14/21 10:54 NT-Pro-B Natriuret Pep 1073 pg/mL (0-900) H 03/14/21 10:08 Total Protein 7.6 g/dL (6.3-8.2) 03/14/21 10:08 Albumin 3.8 g/dL (3.9-5) L 03/14/21 10:08 Albumin/Globulin Ratio 1.0 % 03/14/21 10:08 Procalcitonin 2.63 ng/mL (<0.15) 03/14/21 10:54 Arterial Blood Glucose 127 mg/dL (65-95) H 03/15/21 03:07 Urine Color Straw (Yellow) 03/14/21 14:39 Urine Turbidity Clear (Clear) 03/14/21 14:39 Urine pH 6.0 (5.0-7.0) 03/14/21 14:39 Ur Specific Nellis 1.010 (1.003-1.030) 03/14/21 14:39 Urine Protein 30 mg/dl mg/dL (Negative) 03/14/21 14:39 Urine Glucose (UA) Negative mg/dL (Negative) 03/14/21 14:39 Urine Ketones Negative mg/dL (Negative) 03/14/21 14:39 Urine Blood Small (Negative) A 03/14/21 14:39 Urine Nitrite Negative (Negative) 03/14/21 14:39 Ur Reducing Substances Not Reportable 03/14/21 14:39 Urine Bilirubin Negative (Negative) 03/14/21 14:39 Urine Ictotest Not Reportable 03/14/21 14:39 Urine Urobilinogen Not Reportable 03/14/21 14:39 Ur Leukocyte Esterase Negative (Negative) 03/14/21 14:39 Urine WBC (Auto) 0.0 /HPF (0.0-6.0) 03/14/21 14:39 Urine RBC (Auto) 2.0 /HPF (0.0-6.0) 03/14/21 14:39 U Epithel Cells (Auto) < 1.0 /HPF (0-13.0) 03/14/21 14:39 Coronavirus (PCR) Negative (Negative) 03/15/21 Unknown Blood Type O POSITIVE 03/14/21 13:02 Antibody Screen Negative 03/14/21 13:02 Microbiology: Microbiology 03/14/21 12:30 Tracheal Aspirate Sputum Culture - Preliminary 03/14/21 10:08 Peripheral/Venous Blood Culture - Preliminary NO GROWTH AFTER 48 HOURS 03/14/21 10:08 Peripheral/Venous Blood Culture - Preliminary NO GROWTH AFTER 48 HOURS Benton/IV: Voiding Method Indwelling Catheter Active Medications - Current Medications Current Medications: Generic Name Dose Route Start Last Admin Trade Name Freq PRN Reason Stop Dose Admin Acetaminophen 650 mg 03/14/21 12:04 03/16/21 21:03 Acetaminophen 325 Mg Tab PO 650 mg Q6H PRN Administration Pain MILD(1-3)/Fever >100.5/BAUMAN Albuterol 2.5 mg 03/14/21 12:04 Albuterol 2.5 Mg/3 Ml Nebu IH Q3H PRN Shortness Of Breath Lipase/Protease/Amylase 1 each 03/15/21 11:15 Lipase 10,500/Protease 25,000/Amylase 43,750 (Units) Dr Mata FEEDTUBE PRN PRN For Clogged Feeding Tube Famotidine 20 mg 03/16/21 22:00 03/17/21 09:34 Famotidine 20 Mg Tab FEEDTUBE 20 mg BID RAMIRO Administration Fentanyl 50 mcg 03/14/21 21:23 Fentanyl 100 Mcg/2 Ml Inj IV Q10MIN PRN ANALGESIA Hydrophilic Ointment 1 applic 03/14/21 12:02 Lip Therapy Vaseline TP Q2HR PRN Dry Lips Azithromycin 500 mg in 250 mls @ 250 mls/hr 03/14/21 13:00 03/17/21 12:45 Zithromax/Ns IV 03/18/21 13:59 250 mls/hr Q24H RAMIRO Administration Protocol Ceftriaxone Sodium 2 gm in 100 mls @ 200 mls/hr 03/14/21 13:00 03/16/21 12:24 Rocephin/Ns 2 Gm/100 Ml IV 03/18/21 13:29 200 mls/hr Q24H RAMIRO Administration Protocol Midazolam HCl 100 mg/ Sodium 100 mls @ 1 mls/hr 03/14/21 22:00 03/17/21 10:14 Chloride IV 0 mg/hr TITR RAMIRO 0 mls/hr Titration Protocol 1 MG/HR Fentanyl Citrate 2,000 mcg in 100 mls @ 5.465 mls/hr 03/14/21 22:00 03/17/21 10:13 Fentanyl Drip Premix IV 0 mcg/kg/hr TITR RAMIRO 0 mls/hr Titration Protocol 1 MCG/KG/HR Lorazepam 2 mg 03/14/21 12:17 03/15/21 08:13 Lorazepam 2 Mg/Ml Vial IV 2 mg Q1H PRN Administration [facility] 8-15 Midazolam HCl 2 mg 03/14/21 21:21 Midazolam 2 Mg/2 Ml Inj IV Q10MIN PRN Sedation Multi-Ingred Cream/Lotion/Oil/Oint 1 applic 03/14/21 12:02 Mineral Oil/Petrolatum, White Ophth Oint 3.5 Gm OU Q4HR PRN Dry Eye(s) Senna/Docusate Sodium 1 tab 03/14/21 13:00 03/17/21 09:34 Sennosides/Docusate Sodium 8.6/50 Mg Tab FEEDTUBE 1 tab BID RAMIRO Administration Simple Syrup 15 ml 03/15/21 11:15 Simple Syrup 15 Ml FEEDTUBE PRN PRN Hypoglycemia Simple Syrup 30 ml 03/15/21 11:15 Simple Syrup 15 Ml FEEDTUBE PRN PRN Hypoglycemia Sodium Bicarbonate 325 mg 03/15/21 11:15 Sodium Bicarbonate 325 Mg Tab FEEDTUBE PRN PRN For Clogged Feeding Tube Sodium Chloride 10 ml 03/14/21 22:00 03/17/21 09:34 Sodium Chloride 0.9% 10 Ml Flush Syringe IV 10 ml BID RAMIRO Administration Sodium Chloride 10 ml 03/14/21 12:04 Sodium Chloride 0.9% 10 Ml Flush Syringe IV PRN PRN LINE FLUSH Nutrition/Malnutrition Assess - Dietary Evaluation Nutrition/Malnutrition Findings: Nutrition Notes Start: 03/15/21 11:04 Freq: Status: Active Protocol: Document 03/15/21 11:04 ALTA (Rec: 03/15/21 11:15 ALTA [email or web address]) Nutrition Notes Need for Assessment 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: 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 Pt intubated; hx of medication noncompliance and on CIWA protocol. Burn Absent Trauma Absent Minimum of two criteria No #1 Nutrition Diagnosis Swallowing difficulty Etiology mech ventilation As Evidenced by Signs and Symptoms pt NPO and requires EN support to meet nutrient needs Is patient on ventilator? Yes Is Patient Ambulatory and/or Out of Bed No REE-([facility]-confined to bed) [phone] Calculation Used for Recommendations 65-70% energy needs Additional Notes Energy needs: 3545-6253 kcal/ day Pro needs >2g/kg IBW: >140g/ day Fluid needs 1ml/kcal Nutrition Intervention Nutrition Support: Vital HP at 65ml/hr with 50ml water flush q4h. Kcal 1,560 Protein (gm) 137 Carbohydrates (gm) 175 Fat (gm) 36 Fluid (mL) 1,304 Fiber (gm) 0 Goal #1 TF tolerance Goal #2 TF (at goal rate) to meet 65- 70% energy and 80-100% pro needs Anticipated Discharge Needs: Unable to identify at this time Follow-Up By: 03/17/21 Additional Comments F/U: new TF, vent status, COVID-19 status
[2021-03-17] MEDS: cefTRIAXone/NS 2 GM/100 ML 2 GM/100 ML BAG IV SCH (13:30)
[2021-03-17] MEDS: LORazepam 2 MG/ML VIAL IV PRN (13:30)
--- NOTE | 2021-03-17 15:33 | Vascular Lab Report ---
DUPLEX DOPPLER LOWER EXTREMITY VEINS, BILATERAL INDICATION: R/O DVT. TECHNIQUE: Duplex doppler imaging was performed through the veins of both lower extremities using ve nous compression and other maneuvers. COMPARISON: No relevant prior imaging study available. FINDINGS: Right Common femoral vein: Negative. Right Superficial femoral vein: Negative. Right Popliteal vein: Positive for acute appearing occlusive thrombosis. Right Calf veins: Negative. Left Common femoral vein: Negative. Left Superficial femoral vein: Negative. Left Popliteal vein: Negative. Left Calf veins: Negative. Additional findings: None. IMPRESSION: Positive for acute appearing thrombosis in the right popliteal vein. Signer Name: Jose Childress Jr, MD Signed: 03/17/2021 3:28 PM Workstation Name: [id number]
--- NOTE | 2021-03-17 16:14 | Consultation ---
History of Present Illness - Reason for Consult Consult date: 03/17/21 - History of Present Illness Febrile overnight to 100.5 with a white count 11.1. Cultures are remain negative. Imaging personally reviewed: Chest x-ray: No change, mild bibasilar densities. Dopplers: Right popliteal DVT Past History Past Medical History: hypertension, other (ohs) Past Surgical History: No surgical history, Other (Reviewed) Social history: single, alcohol abuse Family history: diabetes, hypertension Medications and Allergies Allergies Allergy/AdvReac Type Severity Reaction Status Date / Time No Known Allergies Allergy Verified 03/14/21 17:55 Active Meds: Active Medications Acetaminophen (Acetaminophen 325 Mg Tab) 650 mg PO Q6H PRN PRN Reason: Pain MILD(1-3)/Fever >100.5/BAUMAN Last Admin: 03/16/21 21:03 Dose: 650 mg Documented by: Albuterol (Albuterol 2.5 Mg/3 Ml Nebu) 2.5 mg IH Q3H PRN PRN Reason: Shortness Of Breath Lipase/Protease/Amylase (Lipase 10,500/Protease 25,000/Amylase 43,750 (Units) Dr Mata) 1 each FEEDTUBE PRN PRN PRN Reason: For Clogged Feeding Tube Famotidine (Famotidine 20 Mg Tab) 20 mg FEEDTUBE BID RAMIRO Last Admin: 03/17/21 09:34 Dose: 20 mg Documented by: Fentanyl (Fentanyl 100 Mcg/2 Ml Inj) 50 mcg IV Q10MIN PRN PRN Reason: ANALGESIA Hydrophilic Ointment (Lip Therapy Vaseline) 1 applic TP Q2HR PRN PRN Reason: Dry Lips Azithromycin (Zithromax/Ns) 500 mg in 250 mls @ 250 mls/hr IV Q24H RAMIRO; Protocol Stop: 03/18/21 13:59 Last Admin: 03/17/21 12:45 Dose: 250 mls/hr Documented by: Ceftriaxone Sodium (Rocephin/Ns 2 Gm/100 Ml) 2 gm in 100 mls @ 200 mls/hr IV Q24H RAMIRO; Protocol Stop: 03/18/21 13:29 Last Admin: 03/16/21 12:24 Dose: 200 mls/hr Documented by: Midazolam HCl 100 mg/ Sodium (Chloride) 100 mls @ 1 mls/hr IV TITR RAMIRO; Protocol Last Titration: 03/17/21 10:14 Dose: 0 mg/hr, 0 mls/hr Documented by: Fentanyl Citrate (Fentanyl Drip Premix) 2,000 mcg in 100 mls @ 5.465 mls/hr IV TITR [facility]; Protocol Last Titration: 03/17/21 10:13 Dose: 0 mcg/kg/hr, 0 mls/hr Documented by: Lorazepam (Lorazepam 2 Mg/Ml Vial) 2 mg IV Q1H PRN PRN Reason: CIWA-Ar 8-15 Last Admin: 03/17/21 13:30 Dose: 2 mg Documented by: Midazolam HCl (Midazolam 2 Mg/2 Ml Inj) 2 mg IV Q10MIN PRN PRN Reason: Sedation Multi-Ingred Cream/Lotion/Oil/Oint (Mineral Oil/Petrolatum, White Ophth Oint 3.5 Gm) 1 applic OU Q4HR PRN PRN Reason: Dry Eye(s) Senna/Docusate Sodium (Sennosides/Docusate Sodium 8.6/50 Mg Tab) 1 tab FEEDTUBE BID [facility] Last Admin: 03/17/21 09:34 Dose: 1 tab Documented by: Simple Syrup (Simple Syrup 15 Ml) 15 ml FEEDTUBE PRN PRN PRN Reason: Hypoglycemia Simple Syrup (Simple Syrup 15 Ml) 30 ml FEEDTUBE PRN PRN PRN Reason: Hypoglycemia Sodium Bicarbonate (Sodium Bicarbonate 325 Mg Tab) 325 mg FEEDTUBE PRN PRN PRN Reason: For Clogged Feeding Tube Sodium Chloride (Sodium Chloride 0.9% 10 Ml Flush Syringe) 10 ml IV BID [facility] Last Admin: 03/17/21 09:34 Dose: 10 ml Documented by: Sodium Chloride (Sodium Chloride 0.9% 10 Ml Flush Syringe) 10 ml IV PRN PRN PRN Reason: LINE FLUSH Physical Examination - Physical Exam Narrative exam: Physical exam deferred to reduce risk of transmission of COVID-19. Please refer to primary team's note. - Constitutional Vitals: Vital Signs Temp Pulse Resp BP Pulse Ox 99.2 F 80 24 150/95 97 03/17/21 00:00 03/17/21 16:01 03/17/21 15:00 03/17/21 16:01 03/17/21 16:01 Temperature -Last 24 Hours Temperature 99.2 F Temperature 100.5 F Results - Labs CBC & Chem 7: 03/17/21 03:30 03/17/21 03:30 Labs: Abnormal lab results 03/16/21 03/16/21 03/17/21 Range/Units 17:42 23:24 03:30 WBC 11.1 H (4.5-11.0) K/mm3 RBC 6.52 H (3.65-5.03) M/mm3 Hct 46.1 H (35.5-45.6) % MCV 71 L (84-94) fl MCH 21 L (28-32) pg MCHC 30 L (32-34) % RDW 18.2 H (13.2-15.2) % Plt Count 85 L (140-440) K/mm3 ABG HCO3 (20.0-26.0) mmol/L Oxyhemoglobin (95.0-99.0) % Sodium (137-145) mmol/L Chloride (98-107) mmol/L BUN (9-20) mg/dL Glucose (75-100) mg/dL POC Glucose 141 H 134 H (70-105) mg/dL Calcium (8.4-10.2) mg/dL 03/17/21 03/17/21 03/17/21 Range/Units 03:30 06:11 09:20 WBC (4.5-11.0) K/mm3 RBC (3.65-5.03) M/mm3 Hct (35.5-45.6) % MCV (84-94) fl MCH (28-32) pg MCHC (32-34) % RDW (13.2-15.2) % Plt Count (140-440) K/mm3 ABG HCO3 26.1 H (20.0-26.0) mmol/L Oxyhemoglobin 94.5 L (95.0-99.0) % Sodium 148 H (137-145) mmol/L Chloride 111.9 H (98-107) mmol/L BUN 33 H (9-20) mg/dL Glucose 115 H (75-100) mg/dL POC Glucose 121 H (70-105) mg/dL Calcium 7.7 L (8.4-10.2) mg/dL Assessment and Plan Cultures: Blood culture no growth so far. COVID: negative A/P: 55-year-old man past medical history hypertension obesity, alcohol dependence admitted as COVID PUI #COVID PUI:PCR negative #Acute hypoxic respiratory failure: PNA, elevated procal #Obesity #EtOH dependence #DVT: right popliteal. Probably cause of overnight fevers Recs: -Continue ceftriaxone and azithromycin for now given elevated procalcitonin. Complete 7 days -Anticoagulation per hospital protocol for acute DVT Thank you for the consult, we will continue to follow. Mari Herrera MD [facility] ([facility]) O: [phone] F: [phone]
[2021-03-17] MEDS ORDERED: LORazepam 2 MG/ML VIAL IV PRN (18:46)
[2021-03-17 20:35] LABS: Mean Corpuscular HGB Conc 29 % (32-34); Mean Corpuscular Volume 70 fl (84-94); Red Blood Count 6.76 M/mm3 (3.65-5.03); Red Cell Distribution Width 18.2 % (13.2-15.2)
[2021-03-17 20:37] LABS: Hematocrit 47.6 % (35.5-45.6); Platelet Count 73 K/mm3 (140-440)
[2021-03-17 20:52] LABS: INR 1.15 (0.87-1.13)
[2021-03-17 20:53] LABS: Partial Thromboplastin Time 28.6 Sec. (24.2-36.6)
[2021-03-17] MEDS: APIXABAN 5 MG TAB PO SCH (21:25)
--- NOTE | 2021-03-18 03:51 | XRay Report ---
CHEST 1 VIEW 03/18/2021 1:55 AM INDICATION / CLINICAL INFORMATION: follow up respiratory failure. COMPARISON: 03/17/21 FINDINGS: SUPPORT DEVICES: Unchanged. HEART / MEDIASTINUM: Stable. LUNGS / PLEURA: Mild bibasilar densities are stable. No pneumothorax. ADDITIONAL FINDINGS: No significant additional findings. IMPRESSION: 1. No significant change. Signer Name: Elise Kong MD Signed: 03/18/2021 3:46 AM Workstation Name: [id number]
[2021-03-18 05:39] LABS: ABG Base Excess 2.4 mmol/L (-2.0-3.0); ABG HCO3 24.9 mmol/L (20.0-26.0); ABG Methemoglobin 0.5 % (0.0-1.5); ABG Oxygen Saturation 98.4 % (95.0-99.0); ABG PCO2 32.3 mm Hg; ABG PH 7.504 pH Units (7.350-7.450); ABG PO2 116.3 mm Hg (80.0-90.0)
[2021-03-18 06:05] LABS: Mean Corpuscular HGB Conc 30 % (32-34); Mean Corpuscular Volume 72 fl (84-94); Red Blood Count 6.55 M/mm3 (3.65-5.03); Red Cell Distribution Width 18.4 % (13.2-15.2)
[2021-03-18 06:07] LABS: Hematocrit 46.9 % (35.5-45.6); Hemoglobin 13.9 gm/dl (11.8-15.2)
[2021-03-18 06:54] LABS: BUN/Creatinine Ratio 34; Blood Urea Nitrogen 27 mg/dL (9-20); Calcium 8.1 mg/dL (8.4-10.2); Hemolysis Index 15
[2021-03-18] MEDS ORDERED: hydrALAZINE 20 MG/1 ML INJ IV PRN (08:29)
[2021-03-18] MEDS: APIXABAN 5 MG TAB PO SCH ×2 (09:09→22:44)
[2021-03-18] MEDS: SENNOSIDES/DOCUSATE SODIUM 8.6/50 MG TAB FEEDTUBE SCH ×2 (09:10→22:45)
[2021-03-18] MEDS: FAMOTIDINE 20 MG TAB FEEDTUBE SCH ×2 (09:10→22:45)
--- NOTE | 2021-03-18 09:47 | Electrocardiograph Report ---
[facility] Test Date: 2021-03-14 Test Time: 09:59:53 Pat Name: JUSTIN MARTINS Department: Room: A258 Gender: M Chief Client Officer: ARSLAN : 1965 Requested By: PAWEL PEOPLES Order Number: [id number] Reading MD: Austin Garcia Measurements Intervals [place] Rate: 102 P: 65 IL: 151 QRS: 236 QRSD: 99 T: 75 QT: 343 QTc: 447 Interpretive Statements Sinus tachycardia Probable left atrial enlargement Markedly posterior QRS axis No previous ECG available for comparison Electronically Signed On 03-18-2021 9:46:58 EST by Austin Garcia
[2021-03-18 10:04] LABS: Platelet Count 62 K/mm3 (140-440)
[2021-03-18] MEDS: AZITHROMYCIN/NS 500 MG/250 ML 500 MG/250 ML BAG IV SCH (13:34)
[2021-03-18] MEDS: cefTRIAXone/NS 2 GM/100 ML 2 GM/100 ML BAG IV SCH (13:35)
--- NOTE | 2021-03-18 14:25 | Progress Note ---
Assessment and Plan Cultures: Blood culture no growth so far. COVID: negative A/P: 55-year-old man past medical history hypertension obesity, alcohol depende nce admitted as COVID PUI #COVID PUI:PCR negative #Acute hypoxic respiratory failure: PNA, elevated procal #Obesity #EtOH dependence #DVT: right popliteal. Probably cause of overnight fevers Recs: -Continue ceftriaxone and azithromycin for now given elevated procalcitonin. Complete 7 days -Anticoagulation per hospital protocol for acute DVT Thank you for the consult, we will continue to follow. Mari Herrera MD [facility] ([facility]) O: [phone] F: [phone] Subjective Date of service: 03/18/21 Interval history: Afebrile, normal white count. Imaging personally reviewed: CXR: no acute change. Objective - Exam Narrative Exam: Physical exam deferred to reduce risk of transmission of COVID-19. Please refer to primary team's note. - Constitutional Vitals: Vital Signs Temp Pulse Resp BP Pulse Ox 99.7 F H 103 H 21 151/94 93 03/18/21 12:00 03/18/21 13:30 03/18/21 13:30 03/18/21 13:30 03/18/21 13:30 Temperature -Last 24 Hours Temperature 99.7 F Temperature 98.2 F Temperature 99 F Temperature 99 F Temperature 100.2 F - Labs CBC & Chem 7: 03/18/21 05:10 03/18/21 05:10 Labs: Abnormal lab results 03/17/21 03/17/21 03/18/21 Range/Units 20:12 20:12 05:10 WBC 11.5 H (4.5-11.0) K/mm3 RBC 6.76 H 6.55 H (3.65-5.03) M/mm3 Hct 47.6 H 46.9 H (35.5-45.6) % MCV 70 L 72 L (84-94) fl MCH 21 L 21 L (28-32) pg MCHC 29 L 30 L (32-34) % RDW 18.2 H 18.4 H (13.2-15.2) % Plt Count 73 L 62 L (140-440) K/mm3 PT 15.9 H (12.2-14.9) Sec. INR 1.15 H (0.87-1.13) ABG pH (7.350-7.450) pH Units ABG pO2 (80.0-90.0) mm Hg Sodium (137-145) mmol/L Chloride (98-107) mmol/L BUN (9-20) mg/dL POC Glucose (70-105) mg/dL Calcium (8.4-10.2) mg/dL 03/18/21 03/18/21 03/18/21 Range/Units 05:10 05:10 11:18 WBC (4.5-11.0) K/mm3 RBC (3.65-5.03) M/mm3 Hct (35.5-45.6) % MCV (84-94) fl MCH (28-32) pg MCHC (32-34) % RDW (13.2-15.2) % Plt Count (140-440) K/mm3 PT (12.2-14.9) Sec. INR (0.87-1.13) ABG pH 7.504 H (7.350-7.450) pH Units ABG pO2 116.3 H (80.0-90.0) mm Hg Sodium 146 H (137-145) mmol/L Chloride 108.8 H (98-107) mmol/L BUN 27 H (9-20) mg/dL POC Glucose 115 H (70-105) mg/dL Calcium 8.1 L (8.4-10.2) mg/dL
--- NOTE | 2021-03-18 16:14 | Progress Note ---
Assessment and Plan Assessment and plan: This is a 9-jqhzd-ewy male with past medical history of HTN, Obesity Hypoventilation Syndrome, ETOH Dependence, and noncompliance with meds who came in via EMS due to respiratory distress and hypoxia. Patient was intubated in the ED due to acute hypoxic respiratory failure. Patient was admitted in the ICU for further management. Hospital Course to Date: 03/15/21- Patient is on the vent and sedated. Off dopamine, maintaining MAP above 65. Titrate sedation for RASS goal 0 to -2. Continue hydration with NS @100ml/hr. Enteral nutrition initiated. 03/16/21- Patient remains on the vent, on fentanyl and Versed, RASS -4. Plan to weaned sedation off sedation for possible SAT. Patient was febrile overnight TMAX 103.1, WBCs wnl, on IV Abx, and ID is following. Will continue to trend CBC 03/17/21- Patient remains on the vent and sedated. Plan for SAT and CPAP trial today. Thrombocytopenia noted form this am lab, HIT panel ordered. D/w [facility] will hold heparin for now. Persistent low grade fevers overnight, will check BLE doppler to R/O DVT. 03/18/21- Patient is positive DVT in RLE, due to his thrombocytopenia, Eliquis was initiated for DVT tx. HIT panel is pending. Hypernatremia today FWF was [id number]. Will closely monitor electrolytes and renal function. Assessment and Plan #Acute Metabolic Encephalopathy #ETOH Dependence - Patient is intubated and off sedation - Possible SAT and CPAP trial today - Continue PRN ativan for ETOH withdrawal - Avoid benzodiazepine's, reduce the possibility of delirium - Prn analgesia for CPOT greater than 3 - Maintenance of sleep-wake cycle #CV:Hypotension- resolved #Septic Shock- resolved #Metabolic Acidosis- improved #Lactic Acidosis- resolved - Was on dopamine gtt in the ED, now on hold - Normotensive now - Received Sepsis Bolus in the ED - Acidosis improved - Maintain adequate perfusion - IVF D/C - Continue blood pressure monitor per protocol - Maintain MAP above 65 - Consider Levophed vs dopamine if hypotensive - Hep SubQ D/C due to thrombocytopenia - Now on Eliquis #Acute Hypoxic Respiratory Failure 2/2 PNA - 03/14 CXR- Patchy bilateral pulmonary opacities - 03/15 CXR- No significant change - 03/18 CXR with no significant change - COVID swab negative - Intubated on 03/14 - Vent Setting: PRVC- 30%,8,20,500 - AM ABG noted - CCM consulted, appreciate recommendations - VAP bundle addressed - Aspiration precaution HOB above 30 - Daily SBT and SAT trials as tolerated - Daily ABG and CXR - Continue SPO2 monitoring for SPO2 goal above 92% #GI: TF - Enteral nutrition intiated - Nutrition on consult - Continue BR- senokot - Continue PPI- Pepcid #: Hypernatremia - Initial Cr. 1.4, 0.8 this am - Na 146 this am - FWF [id number] - Strict intake and output - Avoid nephrotoxic medications; Renally dose medications - B[place] in place - Monitor and replace electrolytes as needed #RLE DVT #Thrombocytopenia - 03/18 BLE doppler- positive for acute appearing thrombosis in the right popliteal vein - Acute drop in plt- 62 this am - SubQ Heparin D/C - Eliquis was initiated for DVT tx - Will continue to trend CBC #ID:Sepsis #Lactic Acidosis- resolved #Metabolic Acidosis- resolved #CAP - 03/14 CXR- Patchy bilateral pulmonary opacities - 03/15 CXR- No significant change - COVID swab negative - 02/11 B.CultX2 with no conrad as to date; 02/11 Sputum Cult pending - Lactic down from 2.2---> 1.80 - TMAX 100.2 - Wbcs downtrending 9.4 today - Procal 2.73, CRP 7.60 - Continue IV ABx- Rocephin and Azithromycin per ID - Continue to F/U on B.cult - Daily CBC monitor - ID on consult #Endo:Glycemic Control - POCT Q6hrs while on TF - While critically ill target blood glucose of 140-180 - Avoid hypoglycemia The high probability of a clinically significant, sudden or life threatening deterioration of the [multiple] system(s) required my full and direct attention, intervention and personal management. The aggregate critical care time was [60] minutes. This time is in addition to time spent performing reported procedures but includes the following: [x] Data Review and interpretation [x] Patient assessment and monitoring of vital signs [x] Documentation [x] Medication orders and management Disposition Plan: ICU Total Time Spent with Patient (Minutes): 60 History Interval history: Patient is seen and examined at the bedside. Patient remains intubated, no longer on sedation, awake and following commands. LUIS ANTONIO overnight Hospitalist Physical - Constitutional Vitals: Temp Pulse Resp BP Pulse Ox 99.7 F H 103 H 26 H 145/90 92 03/18/21 12:00 03/18/21 14:30 03/18/21 14:30 03/18/21 14:30 03/18/21 14:30 General appearance: Present: no acute distress, other (Intubated) - EENT Eyes: Present: PERRL ENT: hearing intact - Neck Neck: Present: normal ROM - Respiratory Respiratory effort: normal Respiratory: bilateral: diminished - Cardiovascular Rhythm: regular Heart Sounds: Present: S1 & S2 - Extremities Extremities: no ischemia, pulses intact, pulses symmetrical Peripheral Pulses: within normal limits - Abdominal General gastrointestinal: soft, non-tender, normal bowel sounds - Integumentary Integumentary: Present: clear, warm, dry - Psychiatric Psychiatric: appropriate mood/affect, cooperative - Neurologic Neurologic: CNII-XII intact, moves all extremities - Allied Health Allied health notes reviewed: nursing HEART Score - HEART Score Troponin: Troponin T 0.029 ng/mL (0.00-0.029) 03/14/21 10:08 Results - Labs CBC & Chem 7: 03/18/21 05:10 03/18/21 05:10 Labs: Laboratory Last Values WBC 9.4 K/mm3 (4.5-11.0) 03/18/21 05:10 RBC 6.55 M/mm3 (3.65-5.03) H 03/18/21 05:10 Hgb 13.9 gm/dl (11.8-15.2) 03/18/21 05:10 Hct 46.9 % (35.5-45.6) H 03/18/21 05:10 MCV 72 fl (84-94) L 03/18/21 05:10 MCH 21 pg (28-32) L 03/18/21 05:10 MCHC 30 % (32-34) L 03/18/21 05:10 RDW 18.4 % (13.2-15.2) H 03/18/21 05:10 Plt Count 62 K/mm3 (140-440) L 03/18/21 05:10 Lymph % (Auto) 4.4 % (13.4-35.0) L 03/15/21 07:30 [place] % (Auto) 6.5 % (0.0-7.3) 03/15/21 07:30 Eos % (Auto) 0.0 % (0.0-4.3) 03/15/21 07:30 Baso % (Auto) 0.1 % (0.0-1.8) 03/15/21 07:30 Lymph # (Auto) 0.5 K/mm3 (1.2-5.4) L 03/15/21 07:30 [place] # (Auto) 0.7 K/mm3 (0.0-0.8) 03/15/21 07:30 Eos # (Auto) 0.0 K/mm3 (0.0-0.4) 03/15/21 07:30 Baso # (Auto) 0.0 K/mm3 (0.0-0.1) 03/15/21 07:30 Seg Neutrophils % 89.0 % (40.0-70.0) H 03/15/21 07:30 Seg Neutrophils # 10.1 K/mm3 (1.8-7.7) H 03/15/21 07:30 PT 15.9 Sec. (12.2-14.9) H 03/17/21 20:12 INR 1.15 (0.87-1.13) H 03/17/21 20:12 APTT 28.6 Sec. (24.2-36.6) 03/17/21 20:12 D-Dimer 1938.22 ng/mlDDU (0-234) H 03/14/21 10:08 ABG pH 7.504 pH Units (7.350-7.450) H 03/18/21 05:10 POC ABG pCO2 37.2 mmHg (32.0-48.0) 03/15/21 03:07 ABG pCO2 32.3 mm Hg 03/18/21 05:10 POC ABG pO2 92.9 mmHg (83-108) 03/15/21 03:07 ABG pO2 116.3 mm Hg (80.0-90.0) H 03/18/21 05:10 POC ABG HCO3 32.2 03/15/21 03:07 ABG HCO3 24.9 mmol/L (20.0-26.0) 03/18/21 05:10 ABG O2 Saturation 98.4 % (95.0-99.0) 03/18/21 05:10 ABG O2 Content 19.3 (0.0-44) 03/18/21 05:10 POC ABG Base Excess 9.4 03/15/21 03:07 ABG Base Excess 2.4 mmol/L (-2.0-3.0) 03/18/21 05:10 ABG Hemoglobin 14.2 gm/dl (14.0-18.0) 03/18/21 05:10 ABG Oxyhemoglobin 97.3 (94-98) 03/15/21 03:07 ABG Carboxyhemoglobin 2.0 % (0.0-5.0) 03/18/21 05:10 ABG Methemoglobin 0.5 % (0.0-1.5) 03/18/21 05:10 ABG Sodium 136.9 mmol/L (136.0-145.0) 03/15/21 03:07 ABG Potassium 4.5 mmol/L (3.40-4.50) 03/15/21 03:07 ABG Chloride 105.0 mmol/L (98-107) 03/15/21 03:07 ABG Glucose 127 mg/dL (65-95) H 03/15/21 03:07 Oxyhemoglobin 96.0 % (95.0-99.0) 03/18/21 05:10 Carboxyhemoglobin 0.7 (0.5-1.5) 03/15/21 03:07 FiO2 30 % 03/18/21 05:10 FiO2 % 85.0 03/15/21 03:07 Sodium 146 mmol/L (137-145) H 03/18/21 05:10 Potassium 4.0 mmol/L (3.6-5.0) 03/18/21 05:10 Chloride 108.8 mmol/L (98-107) H 03/18/21 05:10 Carbon Dioxide 25 mmol/L (22-30) 03/18/21 05:10 Anion Gap 16 mmol/L 03/18/21 05:10 BUN 27 mg/dL (9-20) H 03/18/21 05:10 Creatinine 0.8 mg/dL (0.8-1.3) 03/18/21 05:10 Estimated GFR > 60 ml/min 03/18/21 05:10 BUN/Creatinine Ratio 34 % 03/18/21 05:10 Glucose 81 mg/dL (75-100) 03/18/21 05:10 POC Glucose 115 mg/dL (70-105) H 03/18/21 11:18 Lactic Acid 1.80 mmol/L (0.7-2.0) 03/14/21 23:38 Calcium 8.1 mg/dL (8.4-10.2) L 03/18/21 05:10 Phosphorus 3.20 mg/dL (2.5-4.5) 03/16/21 04:30 Magnesium 2.50 mg/dL (1.7-2.3) H 03/16/21 04:30 Ferritin 46.5 ng/mL (30.0-300.0) 03/14/21 10:54 Total Bilirubin 0.90 mg/dL (0.1-1.2) 03/14/21 10:08 AST 1574 units/L (5-40) H 03/14/21 10:08 ALT 1404 units/L (7-56) H 03/14/21 10:08 Alkaline Phosphatase 124 units/L (35-129) 03/14/21 10:08 Lactate Dehydrogenase 1456 units/L (91-180) H 03/14/21 10:54 Troponin T 0.029 ng/mL (0.00-0.029) 03/14/21 10:08 C-Reactive Protein 7.60 mg/dL (0.00-1.30) H 03/14/21 10:54 NT-Pro-B Natriuret Pep 1073 pg/mL (0-900) H 03/14/21 10:08 Total Protein 7.6 g/dL (6.3-8.2) 03/14/21 10:08 Albumin 3.8 g/dL (3.9-5) L 03/14/21 10:08 Albumin/Globulin Ratio 1.0 % 03/14/21 10:08 Procalcitonin 2.63 ng/mL (<0.15) 03/14/21 10:54 Arterial Blood Glucose 127 mg/dL (65-95) H 03/15/21 03:07 Urine Color Straw (Yellow) 03/14/21 14:39 Urine Turbidity Clear (Clear) 03/14/21 14:39 Urine pH 6.0 (5.0-7.0) 03/14/21 14:39 Ur Specific [place] 1.010 (1.003-1.030) 03/14/21 14:39 Urine Protein 30 mg/dl mg/dL (Negative) 03/14/21 14:39 Urine Glucose (UA) Negative mg/dL (Negative) 03/14/21 14:39 Urine Ketones Negative mg/dL (Negative) 03/14/21 14:39 Urine Blood Small (Negative) A 03/14/21 14:39 Urine Nitrite Negative (Negative) 03/14/21 14:39 Ur Reducing Substances Not Reportable 03/14/21 14:39 Urine Bilirubin Negative (Negative) 03/14/21 14:39 Urine Ictotest Not Reportable 03/14/21 14:39 Urine Urobilinogen Not Reportable 03/14/21 14:39 Ur Leukocyte Esterase Negative (Negative) 03/14/21 14:39 Urine WBC (Auto) 0.0 /HPF (0.0-6.0) 03/14/21 14:39 Urine RBC (Auto) 2.0 /HPF (0.0-6.0) 03/14/21 14:39 U Epithel Cells (Auto) < 1.0 /HPF (0-13.0) 03/14/21 14:39 Coronavirus (PCR) Negative (Negative) 03/15/21 Unknown Blood Type O POSITIVE 03/14/21 13:02 Antibody Screen Negative 03/14/21 13:02 Microbiology: Microbiology 03/14/21 10:08 Peripheral/Venous Blood Culture - Preliminary NO GROWTH AFTER 4 DAYS 03/14/21 10:08 Peripheral/Venous Blood Culture - Preliminary NO GROWTH AFTER 4 DAYS 03/14/21 12:30 Tracheal Aspirate Sputum Culture - Preliminary [place]/IV: Voiding Method Indwelling Catheter Active Medications - Current Medications Current Medications: Generic Name Dose Route Start Last Admin Trade Name Freq PRN Reason Stop Dose Admin Acetaminophen 650 mg 03/14/21 12:04 03/16/21 21:03 Acetaminophen 325 Mg Tab PO 650 mg Q6H PRN Administration Pain MILD(1-3)/Fever >100.5/BAUMAN Albuterol 2.5 mg 03/14/21 12:04 Albuterol 2.5 Mg/3 Ml Nebu IH Q3H PRN Shortness Of Breath Lipase/Protease/Amylase 1 each 03/15/21 11:15 Lipase 10,500/Protease 25,000/Amylase 43,750 (Units) Dr Cap FEEDTUBE PRN PRN For Clogged Feeding Tube Apixaban 10 mg 03/17/21 22:00 03/18/21 09:09 Apixaban 5 Mg Tab PO 03/24/21 10:01 10 mg Q12HR RAMIRO Administration Protocol Famotidine 20 mg 03/16/21 22:00 03/18/21 09:10 Famotidine 20 Mg Tab FEEDTUBE 20 mg BID RAMIRO Administration Fentanyl 50 mcg 03/14/21 21:23 Fentanyl 100 Mcg/2 Ml Inj IV Q10MIN PRN ANALGESIA Hydralazine HCl 10 mg 03/18/21 08:29 Hydralazine 20 Mg/1 Ml Inj IV Q4H PRN Hypertension Hydrophilic Ointment 1 applic 03/14/21 12:02 Lip Therapy Vaseline TP Q2HR PRN Dry Lips Azithromycin 500 mg in 250 mls @ 250 mls/hr 03/14/21 13:00 03/18/21 13:34 Zithromax/Ns IV 03/20/21 13:59 250 mls/hr Q24H RAMIRO Administration Protocol Ceftriaxone Sodium 2 gm in 100 mls @ 200 mls/hr 03/14/21 13:00 03/18/21 13:35 Rocephin/Ns 2 Gm/100 Ml IV 03/20/21 13:29 200 mls/hr Q24H RAMIRO Administration Protocol Fentanyl Citrate 2,000 mcg in 100 mls @ 5.465 mls/hr 03/14/21 22:00 03/17/21 10:13 Fentanyl Drip Premix IV 0 mcg/kg/hr TITR RAMIRO 0 mls/hr Titration Protocol 1 MCG/KG/HR Lorazepam 0.5 mg 03/17/21 18:46 03/17/21 20:38 Lorazepam 2 Mg/Ml Vial IV 0.5 mg Q4H PRN Administration Alcohol Withdrawal Multi-Ingred Cream/Lotion/Oil/Oint 1 applic 03/14/21 12:02 Mineral Oil/Petrolatum, White Ophth Oint 3.5 Gm OU Q4HR PRN Dry Eye(s) Senna/Docusate Sodium 1 tab 03/14/21 13:00 03/18/21 09:10 Sennosides/Docusate Sodium 8.6/50 Mg Tab FEEDTUBE 1 tab BID RAMIRO Administration Simple Syrup 15 ml 03/15/21 11:15 Simple Syrup 15 Ml FEEDTUBE PRN PRN Hypoglycemia Simple Syrup 30 ml 03/15/21 11:15 Simple Syrup 15 Ml FEEDTUBE PRN PRN Hypoglycemia Sodium Bicarbonate 325 mg 03/15/21 11:15 Sodium Bicarbonate 325 Mg Tab FEEDTUBE PRN PRN For Clogged Feeding Tube Sodium Chloride 10 ml 03/14/21 22:00 03/18/21 09:11 Sodium Chloride 0.9% 10 Ml Flush Syringe IV 10 ml BID RAMIRO Administration Sodium Chloride 10 ml 03/14/21 12:04 Sodium Chloride 0.9% 10 Ml Flush Syringe IV PRN PRN LINE FLUSH Nutrition/Malnutrition Assess - Dietary Evaluation Nutrition/Malnutrition Findings: Nutrition Notes Start: 03/15/21 11:04 Freq: Status: Active Protocol: Document 03/17/21 17:33 GB (Rec: 03/17/21 17:40 GB [id number]) Nutrition Notes Initial or Follow up Reassessment Current Diagnosis Sepsis,Hypertension, Respiratory Failure Other Pertinent Diagnosis Bilat pneu, r/o COVID-19, EtOH dependence Current Diet NPO Labs/Tests 03/17: Na 148, BUN 33, glucose 115, Ca 7.7 Pertinent Medications Azithromycin Height 5 ft 8 in Weight 109.3 kg [place] Body Weight (kg) 70.00 BMI 36.6 Weight change and time frame No new weights entered at time of assessment Weight Status Obese Subjective/Other Information per discussion with RN: trial for extubation today. TF held during trial. Pt is tolerating TF at goal. Covid swab negative. GI: normoactive bowel sounds note: wean to Cpap if able Percent of energy/protein needs met: TF at goal meets 65-70% of EEN Burn Absent Trauma Absent Difficulty In Swallowing Food Allergy No Skin Integrity/Comment no complications reported Current % PO Other Minimum of two criteria No #1 Nutrition Diagnosis Swallowing difficulty Etiology mech ventilation As Evidenced by Signs and Symptoms pt NPO and requires EN support to meet nutrient needs Diagnosis Progress(for reassessment Continues documentation) Is patient on ventilator? Yes Is Patient Ambulatory and/or Out of Bed No REE-([place] Jeor-confined to bed) [phone] Calculation Used for Recommendations 65-70% energy needs Additional Notes Energy needs: 9061-0112 kcal/ day Pro needs >2g/kg IBW: >140g/ day Fluid needs 1ml/kcal Nutrition Intervention Change Diet Order: continue NPO. Nutrition Support: Vital HP at 65ml/hr with 50ml water flush q4h. Kcal 1,560 Protein (gm) 137 Carbohydrates (gm) 175 Fat (gm) 36 Fluid (mL) 1,304 Fiber (gm) 0 Goal #1 TF tolerance 03/17: met, TF at goal rate, continues Goal #2 TF (at goal rate) to meet 65- 70% energy and 80-100% pro needs 03/17: met, continues Follow-Up By: 03/19/21 Additional Comments f/u: TF tolerance, vent status
[2021-03-18] MEDS: ACETAMINOPHEN 325 MG TAB PO PRN (16:30)
[2021-03-18] MEDS: FREE WATER PO SCH ×2 (16:30→22:44)
--- NOTE | 2021-03-18 17:11 | Progress Note ---
Assessment and Plan Imp: 1. Pneumonia 2. EtOH abuse/dependence 3. Sepsis 4. Acute respiratory failure, hypoxia/hypercapnea 5. Thrombcytopenia 6. Acute DVT Rec: 1. Finish ABX per ID 2. Extubate today; he meets all criteria 3. Eliquis; checking HIT 4. Further plans pending clinical course; complex decision-making; no family present Subjective Date of service: 03/18/21 Principal diagnosis: Pneumonia Interval history: Awake, alert, follows commands. Tolerating PSV 10/6 x 4+ hours without issues. Objective Vital Signs - 12hr 03/18/21 03/18/21 03/18/21 05:12 05:30 06:00 Temperature 99 F Pulse Rate 76 76 Respiratory 24 24 Rate Blood Pressure 159/94 159/94 O2 Sat by Pulse 91 Oximetry 03/18/21 03/18/21 03/18/21 06:30 07:00 07:30 Temperature Pulse Rate 75 82 80 Respiratory 24 24 24 Rate Blood Pressure 151/90 148/92 148/90 O2 Sat by Pulse 95 91 93 Oximetry 03/18/21 03/18/21 03/18/21 08:00 08:30 08:41 Temperature 98.2 F Pulse Rate 78 80 88 Respiratory 24 24 Rate Blood Pressure 154/93 153/93 153/93 O2 Sat by Pulse 96 94 96 Oximetry 03/18/21 03/18/21 03/18/21 09:00 09:30 10:00 Temperature Pulse Rate 80 82 82 Respiratory 20 18 20 Rate Blood Pressure 161/94 158/92 154/91 O2 Sat by Pulse 94 92 91 Oximetry 03/18/21 03/18/21 03/18/21 10:30 11:00 11:30 Temperature Pulse Rate 84 86 90 Respiratory 20 17 19 Rate Blood Pressure 153/92 153/92 156/90 O2 Sat by Pulse 94 95 92 Oximetry 03/18/21 03/18/21 03/18/21 12:00 12:03 12:30 Temperature 99.7 F H Pulse Rate 93 H 94 H 105 H Respiratory 21 16 19 Rate Blood Pressure 154/98 154/98 151/94 O2 Sat by Pulse 88 96 91 Oximetry 03/18/21 03/18/21 03/18/21 13:00 13:30 14:00 Temperature Pulse Rate 102 H 103 H 100 H Respiratory 20 21 24 Rate Blood Pressure 152/91 151/94 134/89 O2 Sat by Pulse 94 93 93 Oximetry 03/18/21 03/18/21 03/18/21 14:30 15:00 15:30 Temperature Pulse Rate 103 H 97 H 95 H Respiratory 26 H 26 H 26 H Rate Blood Pressure 145/90 140/90 139/87 O2 Sat by Pulse 92 93 92 Oximetry 03/18/21 03/18/21 03/18/21 16:00 16:19 16:30 Temperature 99.9 F H Pulse Rate 97 H 97 H 96 H Respiratory 25 H 23 25 H Rate Blood Pressure 144/91 141/91 144/91 O2 Sat by Pulse 94 95 94 Oximetry Constitutional: no acute distress, alert Eyes: non-icteric ENT: oropharynx moist Neck: supple Effort: normal Ascultation: Bilateral: clear Cardiovascular: regular rate and rhythm (no mrg) Gastrointestinal: normoactive bowel sounds, soft, non-tender, non-distended Integumentary: normal Extremities: no cyanosis, no edema, pink and warm Neurologic: normal mental status, non-focal exam, pupils equal and round Psychiatric: mood appropriate, affect normal CBC and BMP: 03/20/21 11:23 03/20/21 04:15 ABG, PT/INR, D-dimer: ABG ABG pH 7.504 pH Units (7.350-7.450) H 03/18/21 05:10 POC ABG pCO2 37.2 mmHg (32.0-48.0) 03/15/21 03:07 ABG pCO2 32.3 mm Hg 03/18/21 05:10 POC ABG pO2 92.9 mmHg (83-108) 03/15/21 03:07 ABG pO2 116.3 mm Hg (80.0-90.0) H 03/18/21 05:10 POC ABG HCO3 32.2 03/15/21 03:07 ABG O2 Saturation 98.4 % (95.0-99.0) 03/18/21 05:10 PT/INR, D-dimer PT 15.9 Sec. (12.2-14.9) H 03/17/21 20:12 INR 1.15 (0.87-1.13) H 03/17/21 20:12 D-Dimer 1938.22 ng/mlDDU (0-234) H 03/14/21 10:08 Abnormal lab findings: Abnormal Labs 03/14/21 03/14/21 03/14/21 10:02 10:08 10:08 WBC 11.6 H RBC 6.66 H Hct 48.5 H MCV 73 L MCH 21 L MCHC 29 L RDW 19.0 H Plt Count Lymph % (Auto) 9.5 L [place] % (Auto) 11.4 H Lymph # (Auto) 1.1 L [place] # (Auto) 1.3 H Seg Neutrophils % 79.0 H Seg Neutrophils # 9.2 H PT INR D-Dimer ABG pH ABG pO2 ABG HCO3 ABG Base Excess ABG Hemoglobin ABG Glucose Oxyhemoglobin Sodium Potassium 5.8 H Chloride BUN 37 H Creatinine 1.4 H Glucose 133 H POC Glucose 128 H Lactic Acid Calcium 8.1 L Magnesium AST 1574 H ALT 1404 H Lactate Dehydrogenase C-Reactive Protein NT-Pro-B Natriuret Pep Albumin 3.8 L Arterial Blood Glucose Urine Blood 03/14/21 03/14/21 03/14/21 10:08 10:08 10:54 WBC RBC Hct MCV MCH MCHC RDW Plt Count Lymph % (Auto) [place] % (Auto) Lymph # (Auto) [place] # (Auto) Seg Neutrophils % Seg Neutrophils # PT INR D-Dimer 1938.22 H ABG pH ABG pO2 ABG HCO3 ABG Base Excess ABG Hemoglobin ABG Glucose Oxyhemoglobin Sodium Potassium Chloride BUN Creatinine Glucose 162 H POC Glucose Lactic Acid Calcium Magnesium AST ALT Lactate Dehydrogenase 1456 H C-Reactive Protein 7.60 H NT-Pro-B Natriuret Pep 1073 H Albumin Arterial Blood Glucose Urine Blood 03/14/21 03/14/21 03/14/21 11:10 12:10 13:02 WBC RBC Hct MCV MCH MCHC RDW Plt Count Lymph % (Auto) [place] % (Auto) Lymph # (Auto) [place] # (Auto) Seg Neutrophils % Seg Neutrophils # PT INR D-Dimer ABG pH 6.994 L* 7.219 L ABG pO2 148.4 H 97.8 H ABG HCO3 37.6 H 28.6 H ABG Base Excess ABG Hemoglobin 12.9 L ABG Glucose Oxyhemoglobin 94.9 L 94.0 L Sodium Potassium Chloride BUN Creatinine Glucose POC Glucose Lactic Acid 2.20 H* Calcium Magnesium AST ALT Lactate Dehydrogenase C-Reactive Protein NT-Pro-B Natriuret Pep Albumin Arterial Blood Glucose Urine Blood 03/14/21 03/15/21 03/15/21 14:39 03:07 07:30 WBC 11.3 H RBC 6.73 H Hct 47.7 H MCV 71 L MCH 21 L MCHC 30 L RDW 18.2 H Plt Count Lymph % (Auto) 4.4 L [place] % (Auto) Lymph # (Auto) 0.5 L [place] # (Auto) Seg Neutrophils % 89.0 H Seg Neutrophils # 10.1 H PT INR D-Dimer ABG pH 7.555 H ABG pO2 ABG HCO3 ABG Base Excess ABG Hemoglobin ABG Glucose 127 H Oxyhemoglobin Sodium Potassium Chloride BUN Creatinine Glucose POC Glucose Lactic Acid Calcium Magnesium AST ALT Lactate Dehydrogenase C-Reactive Protein NT-Pro-B Natriuret Pep Albumin Arterial Blood Glucose 127 H Urine Blood Small A 03/15/21 03/15/21 03/15/21 07:30 17:12 23:49 WBC RBC Hct MCV MCH MCHC RDW Plt Count Lymph % (Auto) [place] % (Auto) Lymph # (Auto) [place] # (Auto) Seg Neutrophils % Seg Neutrophils # PT INR D-Dimer ABG pH ABG pO2 ABG HCO3 ABG Base Excess ABG Hemoglobin ABG Glucose Oxyhemoglobin Sodium Potassium Chloride BUN 27 H Creatinine Glucose 115 H POC Glucose 129 H 140 H Lactic Acid Calcium 8.1 L Magnesium AST ALT Lactate Dehydrogenase C-Reactive Protein NT-Pro-B Natriuret Pep Albumin Arterial Blood Glucose Urine Blood 03/16/21 03/16/21 03/16/21 04:30 05:15 05:42 WBC RBC Hct MCV MCH MCHC RDW Plt Count Lymph % (Auto) [place] % (Auto) Lymph # (Auto) [place] # (Auto) Seg Neutrophils % Seg Neutrophils # PT INR D-Dimer ABG pH ABG pO2 101.6 H ABG HCO3 28.6 H ABG Base Excess 4.2 H ABG Hemoglobin ABG Glucose Oxyhemoglobin Sodium Potassium Chloride 109.4 H BUN 33 H Creatinine Glucose 131 H POC Glucose 137 H Lactic Acid Calcium 7.9 L Magnesium 2.50 H AST ALT Lactate Dehydrogenase C-Reactive Protein NT-Pro-B Natriuret Pep Albumin Arterial Blood Glucose Urine Blood 03/16/21 03/16/21 03/16/21 07:07 11:28 17:42 WBC RBC 6.56 H Hct 46.3 H MCV 71 L MCH 22 L MCHC 31 L RDW 18.1 H Plt Count 109 L Lymph % (Auto) [place] % (Auto) Lymph # (Auto) [place] # (Auto) Seg Neutrophils % Seg Neutrophils # PT INR D-Dimer ABG pH ABG pO2 ABG HCO3 ABG Base Excess ABG Hemoglobin ABG Glucose Oxyhemoglobin Sodium Potassium Chloride BUN Creatinine Glucose POC Glucose 167 H 141 H Lactic Acid Calcium Magnesium AST ALT Lactate Dehydrogenase C-Reactive Protein NT-Pro-B Natriuret Pep Albumin Arterial Blood Glucose Urine Blood 03/16/21 03/17/21 03/17/21 23:24 03:30 03:30 WBC 11.1 H RBC 6.52 H Hct 46.1 H MCV 71 L MCH 21 L MCHC 30 L RDW 18.2 H Plt Count 85 L Lymph % (Auto) [place] % (Auto) Lymph # (Auto) [place] # (Auto) Seg Neutrophils % Seg Neutrophils # PT INR D-Dimer ABG pH ABG pO2 ABG HCO3 ABG Base Excess ABG Hemoglobin ABG Glucose Oxyhemoglobin Sodium 148 H Potassium Chloride 111.9 H BUN 33 H Creatinine Glucose 115 H POC Glucose 134 H Lactic Acid Calcium 7.7 L Magnesium AST ALT Lactate Dehydrogenase C-Reactive Protein NT-Pro-B Natriuret Pep Albumin Arterial Blood Glucose Urine Blood 03/17/21 03/17/21 03/17/21 06:11 09:20 20:12 WBC 11.5 H RBC 6.76 H Hct 47.6 H MCV 70 L MCH 21 L MCHC 29 L RDW 18.2 H Plt Count 73 L Lymph % (Auto) [place] % (Auto) Lymph # (Auto) [place] # (Auto) Seg Neutrophils % Seg Neutrophils # PT INR D-Dimer ABG pH ABG pO2 ABG HCO3 26.1 H ABG Base Excess ABG Hemoglobin ABG Glucose Oxyhemoglobin 94.5 L Sodium Potassium Chloride BUN Creatinine Glucose POC Glucose 121 H Lactic Acid Calcium Magnesium AST ALT Lactate Dehydrogenase C-Reactive Protein NT-Pro-B Natriuret Pep Albumin Arterial Blood Glucose Urine Blood 03/17/21 03/18/21 03/18/21 20:12 05:10 05:10 WBC RBC 6.55 H Hct 46.9 H MCV 72 L MCH 21 L MCHC 30 L RDW 18.4 H Plt Count 62 L Lymph % (Auto) [place] % (Auto) Lymph # (Auto) [place] # (Auto) Seg Neutrophils % Seg Neutrophils # PT 15.9 H INR 1.15 H D-Dimer ABG pH ABG pO2 ABG HCO3 ABG Base Excess ABG Hemoglobin ABG Glucose Oxyhemoglobin Sodium 146 H Potassium Chloride 108.8 H BUN 27 H Creatinine Glucose POC Glucose Lactic Acid Calcium 8.1 L Magnesium AST ALT Lactate Dehydrogenase C-Reactive Protein NT-Pro-B Natriuret Pep Albumin Arterial Blood Glucose Urine Blood 03/18/21 03/18/21 05:10 11:18 WBC RBC Hct MCV MCH MCHC RDW Plt Count Lymph % (Auto) [place] % (Auto) Lymph # (Auto) [place] # (Auto) Seg Neutrophils % Seg Neutrophils # PT INR D-Dimer ABG pH 7.504 H ABG pO2 116.3 H ABG HCO3 ABG Base Excess ABG Hemoglobin ABG Glucose Oxyhemoglobin Sodium Potassium Chloride BUN Creatinine Glucose POC Glucose 115 H Lactic Acid Calcium Magnesium AST ALT Lactate Dehydrogenase C-Reactive Protein NT-Pro-B Natriuret Pep Albumin Arterial Blood Glucose Urine Blood Chest x-ray: report reviewed, image reviewed
[2021-03-19] MEDS: FREE WATER PO SCH (02:04)
--- NOTE | 2021-03-19 03:02 | XRay Report ---
CHEST 1 VIEW 03/19/2021 1:56 AM INDICATION / CLINICAL INFORMATION: follow up respiratory failure. COMPARISON: 03/18/21 FINDINGS: SUPPORT DEVICES: Endotracheal and esophagogastric tubes have been removed. Right jugular central line is unchanged. HEART / MEDIASTINUM: Stable. LUNGS / PLEURA: Mild bibasilar densities are stable. No pneumothorax. ADDITIONAL FINDINGS: No significant additional findings. IMPRESSION: 1. No significant change in appearance of the chest. Signer Name: Elise Kong MD Signed: 03/19/2021 2:57 AM Workstation Name: [id number]
[2021-03-19 05:11] LABS: Mean Corpuscular HGB Conc 30 % (32-34); Mean Corpuscular Volume 73 fl (84-94); Red Blood Count 6.37 M/mm3 (3.65-5.03); Red Cell Distribution Width 18.7 % (13.2-15.2)
[2021-03-19 05:13] LABS: Hematocrit 46.4 % (35.5-45.6); Hemoglobin 13.7 gm/dl (11.8-15.2); Platelet Count 64 K/mm3 (140-440)
[2021-03-19 05:35] LABS: BUN/Creatinine Ratio 35; Blood Urea Nitrogen 21 mg/dL (9-20); Calcium 8.4 mg/dL (8.4-10.2); Hemolysis Index 14
--- NOTE | 2021-03-19 08:47 | Progress Note ---
Assessment and Plan - Patient Problems (1) Acute respiratory failure with hypoxia and hypercapnia Current Visit: Yes Status: Acute (2) Multifocal pneumonia Current Visit: Yes Status: Acute (3) Obesity hypoventilation syndrome Current Visit: Yes Status: Acute (4) Sepsis Current Visit: Yes Status: Acute Qualifiers: Sepsis acute organ dysfunction status: with acute organ dysfunction Severe sepsis acute organ dysfunction type: acute respiratory failure Acute respiratory failure type: with hypoxia (5) Suspected COVID-19 virus infection Current Visit: Yes Status: Ruled-out (6) Lactic acidosis Current Visit: Yes Status: Acute (7) Renal insufficiency Current Visit: Yes Status: Acute (8) Thrombocythemia Current Visit: Yes Status: Acute (9) Alcohol abuse Current Visit: Yes Status: Acute Subjective Interval history: awake responsive. no evidence of dt Objective Vital Signs - 12hr 03/18/21 03/18/21 03/18/21 21:00 21:01 22:01 Temperature Pulse Rate 93 H 92 H Respiratory 22 21 Rate Blood Pressure 134/80 130/90 O2 Sat by Pulse 94 93 94 Oximetry 03/18/21 03/18/21 03/19/21 23:00 23:17 00:00 Temperature 99.3 F Pulse Rate 94 H 94 H 91 H Respiratory 26 H 24 26 H Rate Blood Pressure 136/86 136/86 135/86 O2 Sat by Pulse 94 94 94 Oximetry 03/19/21 03/19/21 03/19/21 01:00 02:00 03:00 Temperature Pulse Rate 87 91 H 85 Respiratory 23 26 H 24 Rate Blood Pressure 135/82 144/91 133/84 O2 Sat by Pulse 96 93 Oximetry 03/19/21 03/19/21 03/19/21 04:00 05:00 06:00 Temperature 98.9 F Pulse Rate 84 85 84 Respiratory 25 H 22 25 H Rate Blood Pressure 136/84 132/79 139/91 O2 Sat by Pulse 92 92 94 Oximetry 03/19/21 08:27 Temperature Pulse Rate Respiratory Rate Blood Pressure O2 Sat by Pulse 93 Oximetry Constitutional: no acute distress, alert ENT: oropharynx moist Neck: supple Effort: normal Ascultation: Bilateral: diminished breath sounds Cardiovascular: regular rate and rhythm Gastrointestinal: normoactive bowel sounds, soft, non-tender Neurologic: normal mental status, non-focal exam CBC and BMP: 03/19/21 04:25 03/19/21 04:25 ABG, PT/INR, D-dimer: ABG ABG pH 7.504 pH Units (7.350-7.450) H 03/18/21 05:10 POC ABG pCO2 37.2 mmHg (32.0-48.0) 03/15/21 03:07 ABG pCO2 32.3 mm Hg 03/18/21 05:10 POC ABG pO2 92.9 mmHg (83-108) 03/15/21 03:07 ABG pO2 116.3 mm Hg (80.0-90.0) H 03/18/21 05:10 POC ABG HCO3 32.2 03/15/21 03:07 ABG O2 Saturation 98.4 % (95.0-99.0) 03/18/21 05:10 PT/INR, D-dimer PT 15.9 Sec. (12.2-14.9) H 03/17/21 20:12 INR 1.15 (0.87-1.13) H 03/17/21 20:12 D-Dimer 1938.22 ng/mlDDU (0-234) H 03/14/21 10:08 Abnormal lab findings: Abnormal Labs 03/14/21 03/14/21 03/14/21 10:02 10:08 10:08 WBC 11.6 H RBC 6.66 H Hct 48.5 H MCV 73 L MCH 21 L MCHC 29 L RDW 19.0 H Plt Count Lymph % (Auto) 9.5 L [place] % (Auto) 11.4 H Lymph # (Auto) 1.1 L [place] # (Auto) 1.3 H Seg Neutrophils % 79.0 H Seg Neutrophils # 9.2 H PT INR D-Dimer ABG pH ABG pO2 ABG HCO3 ABG Base Excess ABG Hemoglobin ABG Glucose Oxyhemoglobin Sodium Potassium 5.8 H Chloride BUN 37 H Creatinine 1.4 H Glucose 133 H POC Glucose 128 H Lactic Acid Calcium 8.1 L Magnesium AST 1574 H ALT 1404 H Lactate Dehydrogenase C-Reactive Protein NT-Pro-B Natriuret Pep Albumin 3.8 L Arterial Blood Glucose Urine Blood 03/14/21 03/14/21 03/14/21 10:08 10:08 10:54 WBC RBC Hct MCV MCH MCHC RDW Plt Count Lymph % (Auto) [place] % (Auto) Lymph # (Auto) [place] # (Auto) Seg Neutrophils % Seg Neutrophils # PT INR D-Dimer 1938.22 H ABG pH ABG pO2 ABG HCO3 ABG Base Excess ABG Hemoglobin ABG Glucose Oxyhemoglobin Sodium Potassium Chloride BUN Creatinine Glucose 162 H POC Glucose Lactic Acid Calcium Magnesium AST ALT Lactate Dehydrogenase 1456 H C-Reactive Protein 7.60 H NT-Pro-B Natriuret Pep 1073 H Albumin Arterial Blood Glucose Urine Blood 03/14/21 03/14/21 03/14/21 11:10 12:10 13:02 WBC RBC Hct MCV MCH MCHC RDW Plt Count Lymph % (Auto) [place] % (Auto) Lymph # (Auto) [place] # (Auto) Seg Neutrophils % Seg Neutrophils # PT INR D-Dimer ABG pH 6.994 L* 7.219 L ABG pO2 148.4 H 97.8 H ABG HCO3 37.6 H 28.6 H ABG Base Excess ABG Hemoglobin 12.9 L ABG Glucose Oxyhemoglobin 94.9 L 94.0 L Sodium Potassium Chloride BUN Creatinine Glucose POC Glucose Lactic Acid 2.20 H* Calcium Magnesium AST ALT Lactate Dehydrogenase C-Reactive Protein NT-Pro-B Natriuret Pep Albumin Arterial Blood Glucose Urine Blood 03/14/21 03/15/21 03/15/21 14:39 03:07 07:30 WBC 11.3 H RBC 6.73 H Hct 47.7 H MCV 71 L MCH 21 L MCHC 30 L RDW 18.2 H Plt Count Lymph % (Auto) 4.4 L [place] % (Auto) Lymph # (Auto) 0.5 L [place] # (Auto) Seg Neutrophils % 89.0 H Seg Neutrophils # 10.1 H PT INR D-Dimer ABG pH 7.555 H ABG pO2 ABG HCO3 ABG Base Excess ABG Hemoglobin ABG Glucose 127 H Oxyhemoglobin Sodium Potassium Chloride BUN Creatinine Glucose POC Glucose Lactic Acid Calcium Magnesium AST ALT Lactate Dehydrogenase C-Reactive Protein NT-Pro-B Natriuret Pep Albumin Arterial Blood Glucose 127 H Urine Blood Small A 03/15/21 03/15/21 03/15/21 07:30 17:12 23:49 WBC RBC Hct MCV MCH MCHC RDW Plt Count Lymph % (Auto) [place] % (Auto) Lymph # (Auto) [place] # (Auto) Seg Neutrophils % Seg Neutrophils # PT INR D-Dimer ABG pH ABG pO2 ABG HCO3 ABG Base Excess ABG Hemoglobin ABG Glucose Oxyhemoglobin Sodium Potassium Chloride BUN 27 H Creatinine Glucose 115 H POC Glucose 129 H 140 H Lactic Acid Calcium 8.1 L Magnesium AST ALT Lactate Dehydrogenase C-Reactive Protein NT-Pro-B Natriuret Pep Albumin Arterial Blood Glucose Urine Blood 03/16/21 03/16/21 03/16/21 04:30 05:15 05:42 WBC RBC Hct MCV MCH MCHC RDW Plt Count Lymph % (Auto) [place] % (Auto) Lymph # (Auto) [place] # (Auto) Seg Neutrophils % Seg Neutrophils # PT INR D-Dimer ABG pH ABG pO2 101.6 H ABG HCO3 28.6 H ABG Base Excess 4.2 H ABG Hemoglobin ABG Glucose Oxyhemoglobin Sodium Potassium Chloride 109.4 H BUN 33 H Creatinine Glucose 131 H POC Glucose 137 H Lactic Acid Calcium 7.9 L Magnesium 2.50 H AST ALT Lactate Dehydrogenase C-Reactive Protein NT-Pro-B Natriuret Pep Albumin Arterial Blood Glucose Urine Blood 03/16/21 03/16/21 03/16/21 07:07 11:28 17:42 WBC RBC 6.56 H Hct 46.3 H MCV 71 L MCH 22 L MCHC 31 L RDW 18.1 H Plt Count 109 L Lymph % (Auto) [place] % (Auto) Lymph # (Auto) [place] # (Auto) Seg Neutrophils % Seg Neutrophils # PT INR D-Dimer ABG pH ABG pO2 ABG HCO3 ABG Base Excess ABG Hemoglobin ABG Glucose Oxyhemoglobin Sodium Potassium Chloride BUN Creatinine Glucose POC Glucose 167 H 141 H Lactic Acid Calcium Magnesium AST ALT Lactate Dehydrogenase C-Reactive Protein NT-Pro-B Natriuret Pep Albumin Arterial Blood Glucose Urine Blood 03/16/21 03/17/21 03/17/21 23:24 03:30 03:30 WBC 11.1 H RBC 6.52 H Hct 46.1 H MCV 71 L MCH 21 L MCHC 30 L RDW 18.2 H Plt Count 85 L Lymph % (Auto) [place] % (Auto) Lymph # (Auto) [place] # (Auto) Seg Neutrophils % Seg Neutrophils # PT INR D-Dimer ABG pH ABG pO2 ABG HCO3 ABG Base Excess ABG Hemoglobin ABG Glucose Oxyhemoglobin Sodium 148 H Potassium Chloride 111.9 H BUN 33 H Creatinine Glucose 115 H POC Glucose 134 H Lactic Acid Calcium 7.7 L Magnesium AST ALT Lactate Dehydrogenase C-Reactive Protein NT-Pro-B Natriuret Pep Albumin Arterial Blood Glucose Urine Blood 03/17/21 03/17/21 03/17/21 06:11 09:20 20:12 WBC 11.5 H RBC 6.76 H Hct 47.6 H MCV 70 L MCH 21 L MCHC 29 L RDW 18.2 H Plt Count 73 L Lymph % (Auto) [place] % (Auto) Lymph # (Auto) [place] # (Auto) Seg Neutrophils % Seg Neutrophils # PT INR D-Dimer ABG pH ABG pO2 ABG HCO3 26.1 H ABG Base Excess ABG Hemoglobin ABG Glucose Oxyhemoglobin 94.5 L Sodium Potassium Chloride BUN Creatinine Glucose POC Glucose 121 H Lactic Acid Calcium Magnesium AST ALT Lactate Dehydrogenase C-Reactive Protein NT-Pro-B Natriuret Pep Albumin Arterial Blood Glucose Urine Blood 03/17/21 03/18/21 03/18/21 20:12 05:10 05:10 WBC RBC 6.55 H Hct 46.9 H MCV 72 L MCH 21 L MCHC 30 L RDW 18.4 H Plt Count 62 L Lymph % (Auto) [place] % (Auto) Lymph # (Auto) [place] # (Auto) Seg Neutrophils % Seg Neutrophils # PT 15.9 H INR 1.15 H D-Dimer ABG pH ABG pO2 ABG HCO3 ABG Base Excess ABG Hemoglobin ABG Glucose Oxyhemoglobin Sodium 146 H Potassium Chloride 108.8 H BUN 27 H Creatinine Glucose POC Glucose Lactic Acid Calcium 8.1 L Magnesium AST ALT Lactate Dehydrogenase C-Reactive Protein NT-Pro-B Natriuret Pep Albumin Arterial Blood Glucose Urine Blood 03/18/21 03/18/21 03/18/21 05:10 11:18 17:32 WBC RBC Hct MCV MCH MCHC RDW Plt Count Lymph % (Auto) [place] % (Auto) Lymph # (Auto) [place] # (Auto) Seg Neutrophils % Seg Neutrophils # PT INR D-Dimer ABG pH 7.504 H ABG pO2 116.3 H ABG HCO3 ABG Base Excess ABG Hemoglobin ABG Glucose Oxyhemoglobin Sodium Potassium Chloride BUN Creatinine Glucose POC Glucose 115 H 114 H Lactic Acid Calcium Magnesium AST ALT Lactate Dehydrogenase C-Reactive Protein NT-Pro-B Natriuret Pep Albumin Arterial Blood Glucose Urine Blood 03/19/21 03/19/21 04:25 04:25 WBC RBC 6.37 H Hct 46.4 H MCV 73 L MCH 22 L MCHC 30 L RDW 18.7 H Plt Count 64 L Lymph % (Auto) [place] % (Auto) Lymph # (Auto) [place] # (Auto) Seg Neutrophils % Seg Neutrophils # PT INR D-Dimer ABG pH ABG pO2 ABG HCO3 ABG Base Excess ABG Hemoglobin ABG Glucose Oxyhemoglobin Sodium 146 H Potassium Chloride 108.3 H BUN 21 H Creatinine 0.6 L Glucose POC Glucose Lactic Acid Calcium Magnesium AST ALT Lactate Dehydrogenase C-Reactive Protein NT-Pro-B Natriuret Pep Albumin Arterial Blood Glucose Urine Blood
--- NOTE | 2021-03-19 11:07 | Progress Note ---
Assessment and Plan Assessment and plan: This is a [id number] male with past medical history of HTN, Obesity Hypoventilation Syndrome, ETOH Dependence, and noncompliance with meds who came in via EMS due to respiratory distress and hypoxia. Patient was intubated in the ED due to acute hypoxic respiratory failure. Patient was admitted in the ICU for further management. Hospital Course to Date: 03/15/21- Patient is on the vent and sedated. Off dopamine, maintaining MAP above 65. Titrate sedation for RASS goal 0 to -2. Continue hydration with NS @100ml/hr. Enteral nutrition initiated. 03/16/21- Patient remains on the vent, on fentanyl and Versed, RASS -4. Plan to weaned sedation off sedation for possible SAT. Patient was febrile overnight TMAX 103.1, WBCs wnl, on IV Abx, and ID is following. Will continue to trend CBC 03/17/21- Patient remains on the vent and sedated. Plan for SAT and CPAP trial today. Thrombocytopenia noted form this am lab, HIT panel ordered. D/w CCM will hold heparin for now. Persistent low grade fevers overnight, will check BLE doppler to R/O DVT. 03/18/21- Patient is positive DVT in RLE, due to his thrombocytopenia, Eliquis was initiated for DVT tx. HIT panel is pending. Hypernatremia today FWF was [id number]. Will closely monitor electrolytes and renal function. 03/19/21- Patient is s/p extubation, on 3L CN, AAO and appropriate. Pass bedside swallow eveal, will advance diet as tolerated. Patient is stable for transfer to the floor. Orders placed to D/C mixon and CVC. Assessment and Plan #Acute Metabolic Encephalopathy- resolved #ETOH Dependence - Patient is AAO - Continue PRN ativan for ETOH withdrawal - Avoid benzodiazepine's, reduce the possibility of delirium - Prn analgesia for pain management - Maintenance of sleep-wake cycle #CV:Hypotension- resolved #Septic Shock- resolved #Metabolic Acidosis- improved #Lactic Acidosis- resolved - Was on dopamine gtt in the ED, now on hold - Normotensive now - Received Sepsis Bolus in the ED - Acidosis improved - Maintain adequate perfusion - IVF D/C - Continue blood pressure monitor per protocol, SBP goal less than 160 - Hep SubQ D/C due to thrombocytopenia - Now on Eliquis for DVT #Acute Hypoxic Respiratory Failure 2/ PNA - 03/14 CXR- Patchy bilateral pulmonary opacities - 03/15 CXR- No significant change - 03/18 CXR with no significant change - COVID swab negative - Intubated on 03/14, Extubated on 03/18 - CCM consulted, appreciate recommendations - VAP bundle addressed - Aspiration precaution HOB above 30 - Daily CXR per CCM - Continue SPO2 monitoring for SPO2 goal above 92% #GI: NAP - Pass bedside swallow - Advance diet as tolerated - Continue BR- senokot - Continue PPI- Pepcid #: Hypernatremia - Initial Cr. 1.4, 0.8 this am - Na 146 this am - Encourage PO intake - Strict intake and output - Avoid nephrotoxic medications; Renally dose medications - Remove Mixon per protocol - Monitor and replace electrolytes as needed #RLE DVT #Thrombocytopenia - 03/18 BLE doppler- positive for acute appearing thrombosis in the right popliteal vein - Acute drop in plt- 62 this am - SubQ Heparin D/C - HIT panel pending - Eliquis was initiated for DVT tx - Will continue to trend CBC #ID:Sepsis #Lactic Acidosis- resolved #Metabolic Acidosis- resolved #CAP - 03/14 CXR- Patchy bilateral pulmonary opacities - 03/15 CXR- No significant change - COVID swab negative - 02/11 B.CultX2 with no conrad as to date; 02/11 Sputum Cult negative - Lactic down from 2.2---> 1.80 - TMAX 99.9 - Wbcs downtrending 9.8 today - Procal 2.73, CRP 7.60 - Continue IV ABx- Rocephin and Azithromycin per ID - Continue to F/U on B.cult - Daily CBC monitor - ID on consult #Endo:Glycemic Control - ACHS blood glucose check - While critically ill target blood glucose of 140-180 - Avoid hypoglycemia The high probability of a clinically significant, sudden or life threatening deterioration of the [multiple] system(s) required my full and direct attention, intervention and personal management. The aggregate critical care time was [40] minutes. This time is in addition to time spent performing reported procedures but includes the following: [x] Data Review and interpretation [x] Patient assessment and monitoring of vital signs [x] Documentation [x] Medication orders and management Disposition Plan: ICU Total Time Spent with Patient (Minutes): 40 History Interval history: Patient is seen and examined at the bedside. S/p extubation, on 2L NC, AAO and appropriate. LUIS ANTONIO overnight Hospitalist Physical - Constitutional Vitals: Temp Pulse Resp BP Pulse Ox 98 F 84 25 H 139/91 93 03/19/21 08:00 03/19/21 06:00 03/19/21 06:00 03/19/21 06:00 03/19/21 08:27 General appearance: Present: no acute distress, other (Intubated) HEART Score - HEART Score Troponin: Troponin T 0.029 ng/mL (0.00-0.029) 03/14/21 10:08 Results - Labs CBC & Chem 7: 03/19/21 04:25 03/19/21 04:25 Labs: Laboratory Last Values WBC 9.8 K/mm3 (4.5-11.0) 03/19/21 04:25 RBC 6.37 M/mm3 (3.65-5.03) H 03/19/21 04:25 Hgb 13.7 gm/dl (11.8-15.2) 03/19/21 04:25 Hct 46.4 % (35.5-45.6) H 03/19/21 04:25 MCV 73 fl (84-94) L 03/19/21 04:25 MCH 22 pg (28-32) L 03/19/21 04:25 MCHC 30 % (32-34) L 03/19/21 04:25 RDW 18.7 % (13.2-15.2) H 03/19/21 04:25 Plt Count 64 K/mm3 (140-440) L 03/19/21 04:25 Lymph % (Auto) 4.4 % (13.4-35.0) L 03/15/21 07:30 Wheeler % (Auto) 6.5 % (0.0-7.3) 03/15/21 07:30 Eos % (Auto) 0.0 % (0.0-4.3) 03/15/21 07:30 Baso % (Auto) 0.1 % (0.0-1.8) 03/15/21 07:30 Lymph # (Auto) 0.5 K/mm3 (1.2-5.4) L 03/15/21 07:30 Wheeler # (Auto) 0.7 K/mm3 (0.0-0.8) 03/15/21 07:30 Eos # (Auto) 0.0 K/mm3 (0.0-0.4) 03/15/21 07:30 Baso # (Auto) 0.0 K/mm3 (0.0-0.1) 03/15/21 07:30 Seg Neutrophils % 89.0 % (40.0-70.0) H 03/15/21 07:30 Seg Neutrophils # 10.1 K/mm3 (1.8-7.7) H 03/15/21 07:30 PT 15.9 Sec. (12.2-14.9) H 03/17/21 20:12 INR 1.15 (0.87-1.13) H 03/17/21 20:12 APTT 28.6 Sec. (24.2-36.6) 03/17/21 20:12 D-Dimer 1938.22 ng/mlDDU (0-234) H 03/14/21 10:08 ABG pH 7.504 pH Units (7.350-7.450) H 03/18/21 05:10 POC ABG pCO2 37.2 mmHg (32.0-48.0) 03/15/21 03:07 ABG pCO2 32.3 mm Hg 03/18/21 05:10 POC ABG pO2 92.9 mmHg (83-108) 03/15/21 03:07 ABG pO2 116.3 mm Hg (80.0-90.0) H 03/18/21 05:10 POC ABG HCO3 32.2 03/15/21 03:07 ABG HCO3 24.9 mmol/L (20.0-26.0) 03/18/21 05:10 ABG O2 Saturation 98.4 % (95.0-99.0) 03/18/21 05:10 ABG O2 Content 19.3 (0.0-44) 03/18/21 05:10 POC ABG Base Excess 9.4 03/15/21 03:07 ABG Base Excess 2.4 mmol/L (-2.0-3.0) 03/18/21 05:10 ABG Hemoglobin 14.2 gm/dl (14.0-18.0) 03/18/21 05:10 ABG Oxyhemoglobin 97.3 (94-98) 03/15/21 03:07 ABG Carboxyhemoglobin 2.0 % (0.0-5.0) 03/18/21 05:10 ABG Methemoglobin 0.5 % (0.0-1.5) 03/18/21 05:10 ABG Sodium 136.9 mmol/L (136.0-145.0) 03/15/21 03:07 ABG Potassium 4.5 mmol/L (3.40-4.50) 03/15/21 03:07 ABG Chloride 105.0 mmol/L (98-107) 03/15/21 03:07 ABG Glucose 127 mg/dL (65-95) H 03/15/21 03:07 Oxyhemoglobin 96.0 % (95.0-99.0) 03/18/21 05:10 Carboxyhemoglobin 0.7 (0.5-1.5) 03/15/21 03:07 FiO2 30 % 03/18/21 05:10 FiO2 % 85.0 03/15/21 03:07 Sodium 146 mmol/L (137-145) H 03/19/21 04:25 Potassium 4.1 mmol/L (3.6-5.0) 03/19/21 04:25 Chloride 108.3 mmol/L (98-107) H 03/19/21 04:25 Carbon Dioxide 29 mmol/L (22-30) 03/19/21 04:25 Anion Gap 13 mmol/L 03/19/21 04:25 BUN 21 mg/dL (9-20) H 03/19/21 04:25 Creatinine 0.6 mg/dL (0.8-1.3) L 03/19/21 04:25 Estimated GFR > 60 ml/min 03/19/21 04:25 BUN/Creatinine Ratio 35 % 03/19/21 04:25 Glucose 86 mg/dL (75-100) 03/19/21 04:25 POC Glucose 82 mg/dL (70-105) 03/19/21 05:38 Lactic Acid 1.80 mmol/L (0.7-2.0) 03/14/21 23:38 Calcium 8.4 mg/dL (8.4-10.2) 03/19/21 04:25 Phosphorus 3.20 mg/dL (2.5-4.5) 03/16/21 04:30 Magnesium 2.50 mg/dL (1.7-2.3) H 03/16/21 04:30 Ferritin 46.5 ng/mL (30.0-300.0) 03/14/21 10:54 Total Bilirubin 0.90 mg/dL (0.1-1.2) 03/14/21 10:08 AST 1574 units/L (5-40) H 03/14/21 10:08 ALT 1404 units/L (7-56) H 03/14/21 10:08 Alkaline Phosphatase 124 units/L (35-129) 03/14/21 10:08 Lactate Dehydrogenase 1456 units/L (91-180) H 03/14/21 10:54 Troponin T 0.029 ng/mL (0.00-0.029) 03/14/21 10:08 C-Reactive Protein 7.60 mg/dL (0.00-1.30) H 03/14/21 10:54 NT-Pro-B Natriuret Pep 1073 pg/mL (0-900) H 03/14/21 10:08 Total Protein 7.6 g/dL (6.3-8.2) 03/14/21 10:08 Albumin 3.8 g/dL (3.9-5) L 03/14/21 10:08 Albumin/Globulin Ratio 1.0 % 03/14/21 10:08 Procalcitonin 2.63 ng/mL (<0.15) 03/14/21 10:54 Arterial Blood Glucose 127 mg/dL (65-95) H 03/15/21 03:07 Urine Color Straw (Yellow) 03/14/21 14:39 Urine Turbidity Clear (Clear) 03/14/21 14:39 Urine pH 6.0 (5.0-7.0) 03/14/21 14:39 Ur Specific [place] 1.010 (1.003-1.030) 03/14/21 14:39 Urine Protein 30 mg/dl mg/dL (Negative) 03/14/21 14:39 Urine Glucose (UA) Negative mg/dL (Negative) 03/14/21 14:39 Urine Ketones Negative mg/dL (Negative) 03/14/21 14:39 Urine Blood Small (Negative) A 03/14/21 14:39 Urine Nitrite Negative (Negative) 03/14/21 14:39 Ur Reducing Substances Not Reportable 03/14/21 14:39 Urine Bilirubin Negative (Negative) 03/14/21 14:39 Urine Ictotest Not Reportable 03/14/21 14:39 Urine Urobilinogen Not Reportable 03/14/21 14:39 Ur Leukocyte Esterase Negative (Negative) 03/14/21 14:39 Urine WBC (Auto) 0.0 /HPF (0.0-6.0) 03/14/21 14:39 Urine RBC (Auto) 2.0 /HPF (0.0-6.0) 03/14/21 14:39 U Epithel Cells (Auto) < 1.0 /HPF (0-13.0) 03/14/21 14:39 Coronavirus (PCR) Negative (Negative) 03/15/21 Unknown Blood Type O POSITIVE 03/14/21 13:02 Antibody Screen Negative 03/14/21 13:02 Microbiology: Microbiology 03/14/21 10:08 Peripheral/Venous Blood Culture - Preliminary NO GROWTH AFTER 4 DAYS 03/14/21 10:08 Peripheral/Venous Blood Culture - Preliminary NO GROWTH AFTER 4 DAYS Mixon/IV: Voiding Method Indwelling Catheter Active Medications - Current Medications Current Medications: Generic Name Dose Route Start Last Admin Trade Name Freq PRN Reason Stop Dose Admin Acetaminophen 650 mg 03/14/21 12:04 03/18/21 16:30 Acetaminophen 325 Mg Tab PO 650 mg Q6H PRN Administration Pain MILD(1-3)/Fever >100.5/BAUMAN Albuterol 2.5 mg 03/14/21 12:04 Albuterol 2.5 Mg/3 Ml Nebu IH Q3H PRN Shortness Of Breath Apixaban 10 mg 03/17/21 22:00 03/18/21 22:44 Apixaban 5 Mg Tab PO 03/24/21 10:01 Not Given Q12HR RAMIRO Protocol Apixaban 5 mg 03/24/21 22:00 Apixaban 5 Mg Tab PO Q12HR RAMIRO Protocol Famotidine 20 mg 03/19/21 10:00 Famotidine 20 Mg Tab PO BID RAMIRO Hydralazine HCl 10 mg 03/18/21 08:29 Hydralazine 20 Mg/1 Ml Inj IV Q4H PRN Hypertension Hydrophilic Ointment 1 applic 03/14/21 12:02 Lip Therapy Vaseline TP Q2HR PRN Dry Lips Azithromycin 500 mg in 250 mls @ 250 mls/hr 03/14/21 13:00 03/18/21 13:34 Zithromax/Ns IV 03/20/21 13:59 250 mls/hr Q24H RAMIRO Administration Protocol Ceftriaxone Sodium 2 gm in 100 mls @ 200 mls/hr 03/14/21 13:00 03/18/21 13:35 Rocephin/Ns 2 Gm/100 Ml IV 03/20/21 13:29 200 mls/hr Q24H RAMIRO Administration Protocol Lorazepam 0.5 mg 03/17/21 18:46 03/17/21 20:38 Lorazepam 2 Mg/Ml Vial IV 0.5 mg Q4H PRN Administration Alcohol Withdrawal Multi-Ingred Cream/Lotion/Oil/Oint 1 applic 03/14/21 12:02 Mineral Oil/Petrolatum, White Ophth Oint 3.5 Gm OU Q4HR PRN Dry Eye(s) Senna/Docusate Sodium 1 tab 03/14/21 13:00 03/18/21 22:45 Sennosides/Docusate Sodium 8.6/50 Mg Tab FEEDTUBE Not Given BID RAMIRO Sodium Chloride 10 ml 03/14/21 22:00 03/18/21 22:45 Sodium Chloride 0.9% 10 Ml Flush Syringe IV 10 ml BID RAMIRO Administration Sodium Chloride 10 ml 03/14/21 12:04 Sodium Chloride 0.9% 10 Ml Flush Syringe IV PRN PRN LINE FLUSH Nutrition/Malnutrition Assess - Dietary Evaluation Nutrition/Malnutrition Findings: Nutrition Notes Start: 03/15/21 11 :04 Freq: Status: Active Protocol: Document 03/17/21 17:33 GB (Rec: 03/17/21 17:40 GB [email or web address]) Nutrition Notes Initial or Follow up Reassessment Current Diagnosis Sepsis,Hypertension, Respiratory Failure Other Pertinent Diagnosis Bilat pneu, r/o COVID-19, EtOH dependence Current Diet NPO Labs/Tests 03/17: Na 148, BUN 33, glucose 115, Ca 7.7 Pertinent Medications Azithromycin Height 5 ft 8 in Weight 109.3 kg [place] Body Weight (kg) 70.00 BMI 36.6 Weight change and time frame No new weights entered at time of assessment Weight Status Obese Subjective/Other Information per discussion with RN: trial for extubation today. TF held during trial. Pt is tolerating TF at goal. Covid swab negative. GI: normoactive bowel sounds note: wean to Cpap if able Percent of energy/protein needs met: TF at goal meets 65-70% of EEN Burn Absent Trauma Absent Difficulty In Swallowing Food Allergy No Skin Integrity/Comment no complications reported Current % PO Other Minimum of two criteria No #1 Nutrition Diagnosis Swallowing difficulty [facility] As Evidenced by Signs and Symptoms pt NPO and requires EN support to meet nutrient needs Diagnosis Progress(for reassessment Continues documentation) Is patient on ventilator? Yes Is Patient Ambulatory and/or Out of Bed No [facility] 0705.164 Calculation Used for Recommendations 65-70% energy needs Additional Notes Energy needs: 0267-1006 kcal/ day Pro needs >2g/kg IBW: >140g/ day Fluid needs 1ml/kcal Nutrition Intervention Change Diet Order: continue NPO. Nutrition Support: Vital HP at 65ml/hr with 50ml water flush q4h. Kcal 1,560 Protein (gm) 137 Carbohydrates (gm) 175 Fat (gm) 36 Fluid (mL) 1,304 Fiber (gm) 0 Goal #1 TF tolerance 03/17: met, TF at goal rate, continues Goal #2 TF (at goal rate) to meet 65- 70% energy and 80-100% pro needs 03/17: met, continues Follow-Up By: 03/19/21 Additional Comments f/u: TF tolerance, vent status
[2021-03-19] MEDS: SENNOSIDES/DOCUSATE SODIUM 8.6/50 MG TAB FEEDTUBE SCH (11:23)
[2021-03-19] MEDS: APIXABAN 5 MG TAB PO SCH ×2 (11:29→22:37)
[2021-03-19] MEDS: FAMOTIDINE 20 MG TAB PO SCH ×2 (11:29→22:38)
[2021-03-19] MEDS: cefTRIAXone/NS 2 GM/100 ML 2 GM/100 ML BAG IV SCH (14:41)
[2021-03-19] MEDS: AZITHROMYCIN/NS 500 MG/250 ML 500 MG/250 ML BAG IV SCH (14:42)
--- NOTE | 2021-03-19 15:06 | Progress Note ---
Assessment and Plan Cultures: Blood culture no growth so far. COVID: negative A/P: 55-year-old man past medical history hypertension obesity, alcohol depende nce admitted as COVID PUI #COVID PUI:PCR negative #Acute hypoxic respiratory failure: PNA, elevated procal #Obesity #EtOH dependence #DVT: right popliteal. Probably cause of overnight fevers Recs: -Continue ceftriaxone and azithromycin for now given elevated procalcitonin. Complete 7 days -Anticoagulation per hospital protocol for acute DVT Thank you for the consult, we will sign off. Please call with questions. Mari Herrera MD [facility] ([facility]) O: [phone] F: [phone] Subjective Date of service: 03/19/21 Interval history: Afebrile over last 24 hours, normal white count. Cultures all remain negative. Imaging personally reviewed: Chest x-ray: No significant change in the chest. Objective - Exam Narrative Exam: Physical exam deferred to reduce risk of transmission of COVID-19. Please refer to primary team's note. - Constitutional Vitals: Vital Signs Temp Pulse Resp BP Pulse Ox 98 F 86 19 140/93 96 03/19/21 12:00 03/19/21 12:00 03/19/21 12:00 03/19/21 12:00 03/19/21 12:00 Temperature -Last 24 Hours Temperature 98 F Temperature 98 F Temperature 98.9 F Temperature 99.3 F Temperature 99.0 F Temperature 99.9 F - Labs CBC & Chem 7: 03/19/21 04:25 03/19/21 04:25 Labs: Abnormal lab results 03/18/21 03/19/21 03/19/21 Range/Units 17:32 04:25 04:25 RBC 6.37 H (3.65-5.03) M/mm3 Hct 46.4 H (35.5-45.6) % MCV 73 L (84-94) fl MCH 22 L (28-32) pg MCHC 30 L (32-34) % RDW 18.7 H (13.2-15.2) % Plt Count 64 L (140-440) K/mm3 Sodium 146 H (137-145) mmol/L Chloride 108.3 H (98-107) mmol/L BUN 21 H (9-20) mg/dL Creatinine 0.6 L (0.8-1.3) mg/dL POC Glucose 114 H (70-105) mg/dL 03/19/21 Range/Units 11:42 RBC (3.65-5.03) M/mm3 Hct (35.5-45.6) % MCV (84-94) fl MCH (28-32) pg MCHC (32-34) % RDW (13.2-15.2) % Plt Count (140-440) K/mm3 Sodium (137-145) mmol/L Chloride (98-107) mmol/L BUN (9-20) mg/dL Creatinine (0.8-1.3) mg/dL POC Glucose 111 H (70-105) mg/dL
[2021-03-20] MEDS: FAMOTIDINE 20 MG TAB PO SCH ×2 (09:16→21:30)
[2021-03-20] MEDS: APIXABAN 5 MG TAB PO SCH ×2 (09:17→21:31)
--- NOTE | 2021-03-20 10:02 | Progress Note ---
Assessment and Plan Assessment and plan: This is a [id number] male with past medical history of HTN, Obesity Hypoventilation Syndrome, ETOH Dependence, and noncompliance with meds who came in via EMS due to respiratory distress and hypoxia. Patient was intubated in the ED due to acute hypoxic respiratory failure. Patient was admitted in the ICU for further management. Acute hypoxic respiratory failure. Intubated on 03/14, Extubated on 03/18 Bilateral pneumonia. Covid negative. Metabolic encephalopathy EtOH abuse/dependence Septic shock. Resolved. Acute kidney injury secondary to ATN from sepsis. Resolved RLE DVT. 03/18 BLE doppler- positive for acute appearing thrombosis in the right popliteal vein Thrombocytopenia. Hospital Course to Date: 03/15/21- Patient is on the vent and sedated. Off dopamine, maintaining MAP above 65. Titrate sedation for RASS goal 0 to -2. Continue hydration with NS @100ml/hr. Enteral nutrition initiated. 03/16/21- Patient remains on the vent, on fentanyl and Versed, RASS -4. Plan to weaned sedation off sedation for possible SAT. Patient was febrile overnight TMAX 103.1, WBCs wnl, on IV Abx, and ID is following. Will continue to trend CBC 03/17/21- Patient remains on the vent and sedated. Plan for SAT and CPAP trial today. Thrombocytopenia noted form this am lab, HIT panel ordered. D/w CCM will hold heparin for now. Persistent low grade fevers overnight, will check BLE doppler to R/O DVT. 03/18/21- Patient is positive DVT in RLE, due to his thrombocytopenia, Eliquis was initiated for DVT tx. HIT panel is pending. Hypernatremia today FWF was [id number]. Will closely monitor electrolytes and renal function. 03/19/21- Patient is s/p extubation, on 3L CN, AAO and appropriate. Pass bedside swallow eval, will advance diet as tolerated. Patient is stable for transfer to the floor. Orders placed to D/C mixon and CVC. 1patient doing well from respiratory standpoint. Patient with 93% saturation on 4 L nasal cannula. Wean oxygen as tolerated. Continue per pulmonary recommendations. Continue IV antibiotics per ID recommendations. Patient currently on Eliquis for DVT. However, patient with thrombocytopenia. Await HIT panel. A.m. CBC not orderedstat CBC History Interval history: No new issues overnight. Hospitalist Physical - Constitutional Vitals: Temp Pulse Resp BP Pulse Ox 98.0 F 88 20 141/88 96 03/20/21 07:55 03/20/21 07:55 03/20/21 07:55 03/20/21 07:55 03/20/21 07:55 General appearance: Present: no acute distress, other (Intubated) - EENT Eyes: Present: PERRL, EOM intact ENT: hearing intact, clear oral mucosa, dentition normal - Neck Neck: Present: supple, normal ROM - Respiratory Respiratory effort: normal Respiratory: bilateral: CTA - Cardiovascular Rhythm: regular Heart Sounds: Present: S1 & S2. Absent: gallop, rub - Extremities Extremities: no ischemia, No edema, Full ROM - Abdominal General gastrointestinal: soft, non-tender, non-distended, normal bowel sounds - Integumentary Integumentary: Present: clear, warm, dry - Neurologic Neurologic: CNII-XII intact, moves all extremities HEART Score - HEART Score Troponin: Troponin T 0.029 ng/mL (0.00-0.029) 03/14/21 10:08 Results - Labs CBC & Chem 7: 03/19/21 04:25 03/20/21 04:15 Labs: Laboratory Last Values WBC 9.8 K/mm3 (4.5-11.0) 03/19/21 04:25 RBC 6.37 M/mm3 (3.65-5.03) H 03/19/21 04:25 Hgb 13.7 gm/dl (11.8-15.2) 03/19/21 04:25 Hct 46.4 % (35.5-45.6) H 03/19/21 04:25 MCV 73 fl (84-94) L 03/19/21 04:25 MCH 22 pg (28-32) L 03/19/21 04:25 MCHC 30 % (32-34) L 03/19/21 04:25 RDW 18.7 % (13.2-15.2) H 03/19/21 04:25 Plt Count 64 K/mm3 (140-440) L 03/19/21 04:25 Lymph % (Auto) 4.4 % (13.4-35.0) L 03/15/21 07:30 [place] % (Auto) 6.5 % (0.0-7.3) 03/15/21 07:30 Eos % (Auto) 0.0 % (0.0-4.3) 03/15/21 07:30 Baso % (Auto) 0.1 % (0.0-1.8) 03/15/21 07:30 Lymph # (Auto) 0.5 K/mm3 (1.2-5.4) L 03/15/21 07:30 [place] # (Auto) 0.7 K/mm3 (0.0-0.8) 03/15/21 07:30 Eos # (Auto) 0.0 K/mm3 (0.0-0.4) 03/15/21 07:30 Baso # (Auto) 0.0 K/mm3 (0.0-0.1) 03/15/21 07:30 Seg Neutrophils % 89.0 % (40.0-70.0) H 03/15/21 07:30 Seg Neutrophils # 10.1 K/mm3 (1.8-7.7) H 03/15/21 07:30 PT 15.9 Sec. (12.2-14.9) H 03/17/21 20:12 INR 1.15 (0.87-1.13) H 03/17/21 20:12 APTT 28.6 Sec. (24.2-36.6) 03/17/21 20:12 D-Dimer 1938.22 ng/mlDDU (0-234) H 03/14/21 10:08 ABG pH 7.504 pH Units (7.350-7.450) H 03/18/21 05:10 POC ABG pCO2 37.2 mmHg (32.0-48.0) 03/15/21 03:07 ABG pCO2 32.3 mm Hg 03/18/21 05:10 POC ABG pO2 92.9 mmHg (83-108) 03/15/21 03:07 ABG pO2 116.3 mm Hg (80.0-90.0) H 03/18/21 05:10 POC ABG HCO3 32.2 03/15/21 03:07 ABG HCO3 24.9 mmol/L (20.0-26.0) 03/18/21 05:10 ABG O2 Saturation 98.4 % (95.0-99.0) 03/18/21 05:10 ABG O2 Content 19.3 (0.0-44) 03/18/21 05:10 POC ABG Base Excess 9.4 03/15/21 03:07 ABG Base Excess 2.4 mmol/L (-2.0-3.0) 03/18/21 05:10 ABG Hemoglobin 14.2 gm/dl (14.0-18.0) 03/18/21 05:10 ABG Oxyhemoglobin 97.3 (94-98) 03/15/21 03:07 ABG Carboxyhemoglobin 2.0 % (0.0-5.0) 03/18/21 05:10 ABG Methemoglobin 0.5 % (0.0-1.5) 03/18/21 05:10 ABG Sodium 136.9 mmol/L (136.0-145.0) 03/15/21 03:07 ABG Potassium 4.5 mmol/L (3.40-4.50) 03/15/21 03:07 ABG Chloride 105.0 mmol/L (98-107) 03/15/21 03:07 ABG Glucose 127 mg/dL (65-95) H 03/15/21 03:07 Oxyhemoglobin 96.0 % (95.0-99.0) 03/18/21 05:10 Carboxyhemoglobin 0.7 (0.5-1.5) 03/15/21 03:07 FiO2 30 % 03/18/21 05:10 FiO2 % 85.0 03/15/21 03:07 Sodium 146 mmol/L (137-145) H 03/19/21 04:25 Potassium 4.1 mmol/L (3.6-5.0) 03/19/21 04:25 Chloride 108.3 mmol/L (98-107) H 03/19/21 04:25 Carbon Dioxide 29 mmol/L (22-30) 03/19/21 04:25 Anion Gap 13 mmol/L 03/19/21 04:25 BUN 21 mg/dL (9-20) H 03/19/21 04:25 Creatinine 0.6 mg/dL (0.8-1.3) L 03/20/21 04:15 Estimated GFR > 60 ml/min 03/20/21 04:15 BUN/Creatinine Ratio 35 % 03/19/21 04:25 Glucose 86 mg/dL (75-100) 03/19/21 04:25 POC Glucose 108 mg/dL (70-105) H 03/20/21 07:53 Lactic Acid 1.80 mmol/L (0.7-2.0) 03/14/21 23:38 Calcium 8.4 mg/dL (8.4-10.2) 03/19/21 04:25 Phosphorus 3.20 mg/dL (2.5-4.5) 03/16/21 04:30 Magnesium 2.50 mg/dL (1.7-2.3) H 03/16/21 04:30 Ferritin 46.5 ng/mL (30.0-300.0) 03/14/21 10:54 Total Bilirubin 0.90 mg/dL (0.1-1.2) 03/14/21 10:08 AST 1574 units/L (5-40) H 03/14/21 10:08 ALT 1404 units/L (7-56) H 03/14/21 10:08 Alkaline Phosphatase 124 units/L (35-129) 03/14/21 10:08 Lactate Dehydrogenase 1456 units/L (91-180) H 03/14/21 10:54 Troponin T 0.029 ng/mL (0.00-0.029) 03/14/21 10:08 C-Reactive Protein 7.60 mg/dL (0.00-1.30) H 03/14/21 10:54 NT-Pro-B Natriuret Pep 1073 pg/mL (0-900) H 03/14/21 10:08 Total Protein 7.6 g/dL (6.3-8.2) 03/14/21 10:08 Albumin 3.8 g/dL (3.9-5) L 03/14/21 10:08 Albumin/Globulin Ratio 1.0 % 03/14/21 10:08 Procalcitonin 2.63 ng/mL (<0.15) 03/14/21 10:54 Arterial Blood Glucose 127 mg/dL (65-95) H 03/15/21 03:07 Urine Color Straw (Yellow) 03/14/21 14:39 Urine Turbidity Clear (Clear) 03/14/21 14:39 Urine pH 6.0 (5.0-7.0) 03/14/21 14:39 Ur Specific [place] 1.010 (1.003-1.030) 03/14/21 14:39 Urine Protein 30 mg/dl mg/dL (Negative) 03/14/21 14:39 Urine Glucose (UA) Negative mg/dL (Negative) 03/14/21 14:39 Urine Ketones Negative mg/dL (Negative) 03/14/21 14:39 Urine Blood Small (Negative) A 03/14/21 14:39 Urine Nitrite Negative (Negative) 03/14/21 14:39 Ur Reducing Substances Not Reportable 03/14/21 14:39 Urine Bilirubin Negative (Negative) 03/14/21 14:39 Urine Ictotest Not Reportable 03/14/21 14:39 Urine Urobilinogen Not Reportable 03/14/21 14:39 Ur Leukocyte Esterase Negative (Negative) 03/14/21 14:39 Urine WBC (Auto) 0.0 /HPF (0.0-6.0) 03/14/21 14:39 Urine RBC (Auto) 2.0 /HPF (0.0-6.0) 03/14/21 14:39 U Epithel Cells (Auto) < 1.0 /HPF (0-13.0) 03/14/21 14:39 Coronavirus (PCR) Negative (Negative) 03/15/21 Unknown Blood Type O POSITIVE 03/14/21 13:02 Antibody Screen Negative 03/14/21 13:02 Microbiology: Microbiology 03/14/21 10:08 Peripheral/Venous Blood Culture - Final NO GROWTH AFTER 5 DAYS 03/14/21 10:08 Peripheral/Venous Blood Culture - Final NO GROWTH AFTER 5 DAYS Mixon/IV: Voiding Method Urinal Active Medications - Current Medications Current Medications: Generic Name Dose Route Start Last Admin Trade Name Freq PRN Reason Stop Dose Admin Acetaminophen 650 mg 03/14/21 12:04 03/18/21 16:30 Acetaminophen 325 Mg Tab PO 650 mg Q6H PRN Administration Pain MILD(1-3)/Fever >100.5/BAUMAN Albuterol 2.5 mg 03/14/21 12:04 Albuterol 2.5 Mg/3 Ml Nebu IH Q3H PRN Shortness Of Breath Apixaban 10 mg 03/17/21 22:00 03/20/21 09:17 Apixaban 5 Mg Tab PO 03/24/21 10:01 10 mg Q12HR RAMIRO Administration Protocol Apixaban 5 mg 03/24/21 22:00 Apixaban 5 Mg Tab PO Q12HR RAMIRO Protocol Famotidine 20 mg 03/19/21 10:00 03/20/21 09:16 Famotidine 20 Mg Tab PO 20 mg BID RAMIRO Administration Hydralazine HCl 10 mg 03/18/21 08:29 Hydralazine 20 Mg/1 Ml Inj IV Q4H PRN Hypertension Hydrophilic Ointment 1 applic 03/14/21 12:02 Lip Therapy Vaseline TP Q2HR PRN Dry Lips Azithromycin 500 mg in 250 mls @ 250 mls/hr 03/14/21 13:00 03/19/21 15:43 Zithromax/Ns IV 03/20/21 13:59 Infused Q24H RAMIRO Infusion Protocol Ceftriaxone Sodium 2 gm in 100 mls @ 200 mls/hr 03/14/21 13:00 03/19/21 15:41 Rocephin/Ns 2 Gm/100 Ml IV 03/20/21 13:29 Infused Q24H RAMIRO Infusion Protocol Lorazepam 0.5 mg 03/17/21 18:46 03/17/21 20:38 Lorazepam 2 Mg/Ml Vial IV 0.5 mg Q4H PRN Administration Alcohol Withdrawal Multi-Ingred Cream/Lotion/Oil/Oint 1 applic 03/14/21 12:02 Mineral Oil/Petrolatum, White Ophth Oint 3.5 Gm OU Q4HR PRN Dry Eye(s) Sodium Chloride 10 ml 03/14/21 22:00 03/20/21 09:17 Sodium Chloride 0.9% 10 Ml Flush Syringe IV 10 ml BID RAMIRO Administration Sodium Chloride 10 ml 03/14/21 12:04 Sodium Chloride 0.9% 10 Ml Flush Syringe IV PRN PRN LINE FLUSH Nutrition/Malnutrition Assess - Dietary Evaluation Nutrition/Malnutrition Findings: Nutrition Notes Start: 03/15/21 11:04 Freq: Status: Active Protocol: Document 03/19/21 14:59 ALTA (Rec: 03/19/21 15:05 ALTA [id number]) Nutrition Notes Initial or Follow up Reassessment Current Diagnosis Sepsis Other Pertinent Diagnosis EtOH dependence, RLE DVT Current Diet Regular Labs/Tests Na 146 BUN 21 Pertinent Medications Reviewed Height 5 ft 8 in Weight 109.3 kg [place] Body Weight (kg) 70.00 BMI 36.6 Weight Status Obese Subjective/Other Information Pt now extubated and tolerating PO diet. He reports good appetite; consuming 75% of meals so far. Awaiting transfer to medical floor. Pt negative for COVID -19. Percent of energy/protein needs met: 98% energy 93% pro Burn Absent Trauma Absent Current % PO Good (75-100%) Minimum of two criteria No #1 Nutrition Diagnosis Swallowing difficulty As Evidenced by Signs and Symptoms diet advanced and pt tolerating PO diet Diagnosis Progress(for reassessment Resolved documentation) Is patient on ventilator? No Is Patient Ambulatory and/or Out of Bed No REE-([place]-confined to bed) 2275.164 Kcal/Kg value to use for calculation 16 Approximate Energy Requirements Using 1749 kcal/Kg Calculation Used for Recommendations Kcal/kg Additional Notes Pro needs 0.8-1g/kg adjBW: 72- 90g/day Fluid needs 1ml/kcal Nutrition Intervention Change Diet Order: Continue current diet order Goal #1 PO intake to meet at least 75% energy and pro needs Follow-Up By: 03/26/21 Additional Comments F/U: stable intakes, wt
[2021-03-20 12:06] LABS: Basophils % (Auto) 0.2 % (0.0-1.8); Eosinophils # (Auto) 0.3 K/mm3 (0.0-0.4); Eosinophils % (Auto) 3.2 % (0.0-4.3); Hematocrit 45.9 % (35.5-45.6); Hemoglobin 13.8 gm/dl (11.8-15.2); Lymphocytes # (Auto) 0.6 K/mm3 (1.2-5.4); Lymphocytes % (Auto) 6.2 % (13.4-35.0); Mean Corpuscular HGB Conc 30 % (32-34); Mean Corpuscular Volume 72 fl (84-94); Monocytes # (Auto) 1.3 K/mm3 (0.0-0.8); Monocytes % (Auto) 12.7 % (0.0-7.3); Platelet Count 90 K/mm3 (140-440); Red Blood Count 6.35 M/mm3 (3.65-5.03); Red Cell Distribution Width 18.8 % (13.2-15.2)
[2021-03-20] MEDS ORDERED: AZITHROMYCIN 250 MG TAB PO SCH (13:00)
[2021-03-20] MEDS: cefTRIAXone/NS 2 GM/100 ML 2 GM/100 ML BAG IV SCH (13:37)
[2021-03-20] MEDS: FREE WATER PO SCH ×2 (19:33→19:42)
--- NOTE | 2021-03-20 21:52 | Progress Note ---
Assessment and Plan Imp: 1. Pneumonia 2. EtOH abuse/dependence 3. Sepsis 4. Acute respiratory failure, hypoxia/hypercapnea 5. Thrombcytopenia 6. Acute DVT Rec: 1. Finished ABX 2. Eliquis; checking HIT 3. On RA 4. Will sign off; please call with questions; can be discharged [id number] Plan of care reviewed w/ patient, he understands/agrees Subjective Date of service: 03/20/21 Principal diagnosis: Pneumonia Interval history: No events. On RA. No complaints. Eating w/o issues. Active Medications Acetaminophen (Acetaminophen 325 Mg Tab) 650 mg PO Q6H PRN PRN Reason: Pain MILD(1-3)/Fever >100.5/BAUMAN Last Admin: 03/18/21 16:30 Dose: 650 mg Documented by: Albuterol (Albuterol 2.5 Mg/3 Ml Nebu) 2.5 mg IH Q3H PRN PRN Reason: Shortness Of Breath Apixaban (Apixaban 5 Mg Tab) 10 mg PO Q12HR RAMIRO; Protocol Stop: 03/24/21 10:01 Last Admin: 03/20/21 21:31 Dose: 10 mg Documented by: Apixaban (Apixaban 5 Mg Tab) 5 mg PO Q12HR [facility]; Protocol Famotidine (Famotidine 20 Mg Tab) 20 mg PO BID [facility] Last Admin: 03/20/21 21:30 Dose: 20 mg Documented by: Hydralazine HCl (Hydralazine 20 Mg/1 Ml Inj) 10 mg IV Q4H PRN PRN Reason: Hypertension Hydrophilic Ointment (Lip Therapy Vaseline) 1 applic TP Q2HR PRN PRN Reason: Dry Lips Lorazepam (Lorazepam 2 Mg/Ml Vial) 0.5 mg IV Q4H PRN PRN Reason: Alcohol Withdrawal Last Admin: 03/17/21 20:38 Dose: 0.5 mg Documented by: Multi-Ingred Cream/Lotion/Oil/Oint (Mineral Oil/Petrolatum, White Ophth Oint 3.5 Gm) 1 applic OU Q4HR PRN PRN Reason: Dry Eye(s) Sodium Chloride (Sodium Chloride 0.9% 10 Ml Flush Syringe) 10 ml IV BID [facility] Last Admin: 03/20/21 21:33 Dose: Not Given Documented by: Sodium Chloride (Sodium Chloride 0.9% 10 Ml Flush Syringe) 10 ml IV PRN PRN PRN Reason: LINE FLUSH Objective Vital Signs - 12hr 03/20/21 03/20/21 03/20/21 10:00 15:56 21:20 Temperature 98.6 F Pulse Rate 100 H Respiratory 18 Rate Blood Pressure 108/70 O2 Sat by Pulse 97 92 95 Oximetry Constitutional: no acute distress, alert Eyes: non-icteric ENT: oropharynx moist Neck: supple Effort: normal Ascultation: Bilateral: clear Cardiovascular: regular rate and rhythm (no mrg) Gastrointestinal: normoactive bowel sounds, soft, non-tender, non-distended Integumentary: normal Extremities: no cyanosis, no edema, pink and warm Neurologic: normal mental status, non-focal exam, pupils equal and round Psychiatric: mood appropriate, affect normal CBC and BMP: 03/20/21 11:23 03/20/21 04:15 ABG, PT/INR, D-dimer: ABG ABG pH 7.504 pH Units (7.350-7.450) H 03/18/21 05:10 POC ABG pCO2 37.2 mmHg (32.0-48.0) 03/15/21 03:07 ABG pCO2 32.3 mm Hg 03/18/21 05:10 POC ABG pO2 92.9 mmHg (83-108) 03/15/21 03:07 ABG pO2 116.3 mm Hg (80.0-90.0) H 03/18/21 05:10 POC ABG HCO3 32.2 03/15/21 03:07 ABG O2 Saturation 98.4 % (95.0-99.0) 03/18/21 05:10 PT/INR, D-dimer PT 15.9 Sec. (12.2-14.9) H 03/17/21 20:12 INR 1.15 (0.87-1.13) H 03/17/21 20:12 D-Dimer 1938.22 ng/mlDDU (0-234) H 03/14/21 10:08 Abnormal lab findings: Abnormal Labs 03/14/21 03/14/21 03/14/21 10:02 10:08 10:08 WBC 11.6 H RBC 6.66 H Hct 48.5 H MCV 73 L MCH 21 L MCHC 29 L RDW 19.0 H Plt Count Lymph % (Auto) 9.5 L [place] % (Auto) 11.4 H Lymph # (Auto) 1.1 L [place] # (Auto) 1.3 H Seg Neutrophils % 79.0 H Seg Neutrophils # 9.2 H PT INR D-Dimer ABG pH ABG pO2 ABG HCO3 ABG Base Excess ABG Hemoglobin ABG Glucose Oxyhemoglobin Sodium Potassium 5.8 H Chloride BUN 37 H Creatinine 1.4 H Glucose 133 H POC Glucose 128 H Lactic Acid Calcium 8.1 L Magnesium AST 1574 H ALT 1404 H Lactate Dehydrogenase C-Reactive Protein NT-Pro-B Natriuret Pep Albumin 3.8 L Arterial Blood Glucose Urine Blood 03/14/21 03/14/21 03/14/21 10:08 10:08 10:54 WBC RBC Hct MCV MCH MCHC RDW Plt Count Lymph % (Auto) [place] % (Auto) Lymph # (Auto) [place] # (Auto) Seg Neutrophils % Seg Neutrophils # PT INR D-Dimer 1938.22 H ABG pH ABG pO2 ABG HCO3 ABG Base Excess ABG Hemoglobin ABG Glucose Oxyhemoglobin Sodium Potassium Chloride BUN Creatinine Glucose 162 H POC Glucose Lactic Acid Calcium Magnesium AST ALT Lactate Dehydrogenase 1456 H C-Reactive Protein 7.60 H NT-Pro-B Natriuret Pep 1073 H Albumin Arterial Blood Glucose Urine Blood 03/14/21 03/14/21 03/14/21 11:10 12:10 13:02 WBC RBC Hct MCV MCH MCHC RDW Plt Count Lymph % (Auto) [place] % (Auto) Lymph # (Auto) [place] # (Auto) Seg Neutrophils % Seg Neutrophils # PT INR D-Dimer ABG pH 6.994 L* 7.219 L ABG pO2 148.4 H 97.8 H ABG HCO3 37.6 H 28.6 H ABG Base Excess ABG Hemoglobin 12.9 L ABG Glucose Oxyhemoglobin 94.9 L 94.0 L Sodium Potassium Chloride BUN Creatinine Glucose POC Glucose Lactic Acid 2.20 H* Calcium Magnesium AST ALT Lactate Dehydrogenase C-Reactive Protein NT-Pro-B Natriuret Pep Albumin Arterial Blood Glucose Urine Blood 03/14/21 03/15/21 03/15/21 14:39 03:07 07:30 WBC 11.3 H RBC 6.73 H Hct 47.7 H MCV 71 L MCH 21 L MCHC 30 L RDW 18.2 H Plt Count Lymph % (Auto) 4.4 L [place] % (Auto) Lymph # (Auto) 0.5 L [place] # (Auto) Seg Neutrophils % 89.0 H Seg Neutrophils # 10.1 H PT INR D-Dimer ABG pH 7.555 H ABG pO2 ABG HCO3 ABG Base Excess ABG Hemoglobin ABG Glucose 127 H Oxyhemoglobin Sodium Potassium Chloride BUN Creatinine Glucose POC Glucose Lactic Acid Calcium Magnesium AST ALT Lactate Dehydrogenase C-Reactive Protein NT-Pro-B Natriuret Pep Albumin Arterial Blood Glucose 127 H Urine Blood Small A 03/15/21 03/15/21 03/15/21 07:30 17:12 23:49 WBC RBC Hct MCV MCH MCHC RDW Plt Count Lymph % (Auto) [place] % (Auto) Lymph # (Auto) [place] # (Auto) Seg Neutrophils % Seg Neutrophils # PT INR D-Dimer ABG pH ABG pO2 ABG HCO3 ABG Base Excess ABG Hemoglobin ABG Glucose Oxyhemoglobin Sodium Potassium Chloride BUN 27 H Creatinine Glucose 115 H POC Glucose 129 H 140 H Lactic Acid Calcium 8.1 L Magnesium AST ALT Lactate Dehydrogenase C-Reactive Protein NT-Pro-B Natriuret Pep Albumin Arterial Blood Glucose Urine Blood 03/16/21 03/16/21 03/16/21 04:30 05:15 05:42 WBC RBC Hct MCV MCH MCHC RDW Plt Count Lymph % (Auto) [place] % (Auto) Lymph # (Auto) [place] # (Auto) Seg Neutrophils % Seg Neutrophils # PT INR D-Dimer ABG pH ABG pO2 101.6 H ABG HCO3 28.6 H ABG Base Excess 4.2 H ABG Hemoglobin ABG Glucose Oxyhemoglobin Sodium Potassium Chloride 109.4 H BUN 33 H Creatinine Glucose 131 H POC Glucose 137 H Lactic Acid Calcium 7.9 L Magnesium 2.50 H AST ALT Lactate Dehydrogenase C-Reactive Protein NT-Pro-B Natriuret Pep Albumin Arterial Blood Glucose Urine Blood 03/16/21 03/16/21 03/16/21 07:07 11:28 17:42 WBC RBC 6.56 H Hct 46.3 H MCV 71 L MCH 22 L MCHC 31 L RDW 18.1 H Plt Count 109 L Lymph % (Auto) [place] % (Auto) Lymph # (Auto) [place] # (Auto) Seg Neutrophils % Seg Neutrophils # PT INR D-Dimer ABG pH ABG pO2 ABG HCO3 ABG Base Excess ABG Hemoglobin ABG Glucose Oxyhemoglobin Sodium Potassium Chloride BUN Creatinine Glucose POC Glucose 167 H 141 H Lactic Acid Calcium Magnesium AST ALT Lactate Dehydrogenase C-Reactive Protein NT-Pro-B Natriuret Pep Albumin Arterial Blood Glucose Urine Blood 03/16/21 03/17/21 03/17/21 23:24 03:30 03:30 WBC 11.1 H RBC 6.52 H Hct 46.1 H MCV 71 L MCH 21 L MCHC 30 L RDW 18.2 H Plt Count 85 L Lymph % (Auto) [place] % (Auto) Lymph # (Auto) [place] # (Auto) Seg Neutrophils % Seg Neutrophils # PT INR D-Dimer ABG pH ABG pO2 ABG HCO3 ABG Base Excess ABG Hemoglobin ABG Glucose Oxyhemoglobin Sodium 148 H Potassium Chloride 111.9 H BUN 33 H Creatinine Glucose 115 H POC Glucose 134 H Lactic Acid Calcium 7.7 L Magnesium AST ALT Lactate Dehydrogenase C-Reactive Protein NT-Pro-B Natriuret Pep Albumin Arterial Blood Glucose Urine Blood 03/17/21 03/17/21 03/17/21 06:11 09:20 20:12 WBC 11.5 H RBC 6.76 H Hct 47.6 H MCV 70 L MCH 21 L MCHC 29 L RDW 18.2 H Plt Count 73 L Lymph % (Auto) [place] % (Auto) Lymph # (Auto) [place] # (Auto) Seg Neutrophils % Seg Neutrophils # PT INR D-Dimer ABG pH ABG pO2 ABG HCO3 26.1 H ABG Base Excess ABG Hemoglobin ABG Glucose Oxyhemoglobin 94.5 L Sodium Potassium Chloride BUN Creatinine Glucose POC Glucose 121 H Lactic Acid Calcium Magnesium AST ALT Lactate Dehydrogenase C-Reactive Protein NT-Pro-B Natriuret Pep Albumin Arterial Blood Glucose Urine Blood 03/17/21 03/18/21 03/18/21 20:12 05:10 05:10 WBC RBC 6.55 H Hct 46.9 H MCV 72 L MCH 21 L MCHC 30 L RDW 18.4 H Plt Count 62 L Lymph % (Auto) [place] % (Auto) Lymph # (Auto) [place] # (Auto) Seg Neutrophils % Seg Neutrophils # PT 15.9 H INR 1.15 H D-Dimer ABG pH ABG pO2 ABG HCO3 ABG Base Excess ABG Hemoglobin ABG Glucose Oxyhemoglobin Sodium 146 H Potassium Chloride 108.8 H BUN 27 H Creatinine Glucose POC Glucose Lactic Acid Calcium 8.1 L Magnesium AST ALT Lactate Dehydrogenase C-Reactive Protein NT-Pro-B Natriuret Pep Albumin Arterial Blood Glucose Urine Blood 03/18/21 03/18/21 03/18/21 05:10 11:18 17:32 WBC RBC Hct MCV MCH MCHC RDW Plt Count Lymph % (Auto) [place] % (Auto) Lymph # (Auto) [place] # (Auto) Seg Neutrophils % Seg Neutrophils # PT INR D-Dimer ABG pH 7.504 H ABG pO2 116.3 H ABG HCO3 ABG Base Excess ABG Hemoglobin ABG Glucose Oxyhemoglobin Sodium Potassium Chloride BUN Creatinine Glucose POC Glucose 115 H 114 H Lactic Acid Calcium Magnesium AST ALT Lactate Dehydrogenase C-Reactive Protein NT-Pro-B Natriuret Pep Albumin Arterial Blood Glucose Urine Blood 03/19/21 03/19/21 03/19/21 04:25 04:25 11:42 WBC RBC 6.37 H Hct 46.4 H MCV 73 L MCH 22 L MCHC 30 L RDW 18.7 H Plt Count 64 L Lymph % (Auto) [place] % (Auto) Lymph # (Auto) [place] # (Auto) Seg Neutrophils % Seg Neutrophils # PT INR D-Dimer ABG pH ABG pO2 ABG HCO3 ABG Base Excess ABG Hemoglobin ABG Glucose Oxyhemoglobin Sodium 146 H Potassium Chloride 108.3 H BUN 21 H Creatinine 0.6 L Glucose POC Glucose 111 H Lactic Acid Calcium Magnesium AST ALT Lactate Dehydrogenase C-Reactive Protein NT-Pro-B Natriuret Pep Albumin Arterial Blood Glucose Urine Blood 03/19/21 03/20/21 03/20/21 21:17 04:15 07:53 WBC RBC Hct MCV MCH MCHC RDW Plt Count Lymph % (Auto) [place] % (Auto) Lymph # (Auto) [place] # (Auto) Seg Neutrophils % Seg Neutrophils # PT INR D-Dimer ABG pH ABG pO2 ABG HCO3 ABG Base Excess ABG Hemoglobin ABG Glucose Oxyhemoglobin Sodium Potassium Chloride BUN Creatinine 0.6 L Glucose POC Glucose 118 H 108 H Lactic Acid Calcium Magnesium AST ALT Lactate Dehydrogenase C-Reactive Protein NT-Pro-B Natriuret Pep Albumin Arterial Blood Glucose Urine Blood 03/20/21 03/20/21 11:23 15:53 WBC RBC 6.35 H Hct 45.9 H MCV 72 L MCH 22 L MCHC 30 L RDW 18.8 H Plt Count 90 L Lymph % (Auto) 6.2 L [place] % (Auto) 12.7 H Lymph # (Auto) 0.6 L [place] # (Auto) 1.3 H Seg Neutrophils % 77.7 H Seg Neutrophils # 7.9 H PT INR D-Dimer ABG pH ABG pO2 ABG HCO3 ABG Base Excess ABG Hemoglobin ABG Glucose Oxyhemoglobin Sodium Potassium Chloride BUN Creatinine Glucose POC Glucose 106 H Lactic Acid Calcium Magnesium AST ALT Lactate Dehydrogenase C-Reactive Protein NT-Pro-B Natriuret Pep Albumin Arterial Blood Glucose Urine Blood Chest x-ray: report reviewed, image reviewed
[2021-03-21 06:41] LABS: Mean Corpuscular HGB Conc 30 % (32-34); Mean Corpuscular Volume 72 fl (84-94); Red Blood Count 6.34 M/mm3 (3.65-5.03); Red Cell Distribution Width 18.8 % (13.2-15.2)
[2021-03-21 06:43] LABS: Hemoglobin 13.8 gm/dl (11.8-15.2)
[2021-03-21 06:44] LABS: Hematocrit 45.8 % (35.5-45.6)
[2021-03-21 07:03] LABS: Blood Urea Nitrogen 19 mg/dL (9-20); Calcium 8.8 mg/dL (8.4-10.2); Hemolysis Index 48
[2021-03-21 07:10] LABS: BUN/Creatinine Ratio 27
--- NOTE | 2021-03-21 08:52 | Discharge Summary ---
Providers - Providers Date of Admission: 03/14/21 12:04 Date of discharge: 03/21/21 Attending physician: TERI MUSTAFA 03/14/21 12:02 Consult to Dietitian/Nutrition [CONS] Routine Physician Instructions: Reason For Exam: Reason for Consult: Evaluate nutritional intake Consult to Physician [CONS] Stat Comment: Consulting Provider: POOJA STRONG Physician Instructions: Reason For Exam: respiratory failure ccu admit 03/14/21 12:16 Consult to Physician [CONS] Routine Comment: Consulting Provider: MALAIKA DOMINGUEZ Physician Instructions: Reason For Exam: PUI 03/15/21 09:50 Consult to Dietitian/Nutrition [CONS] Routine Physician Instructions: Reason For Exam: Reason for Consult: Write/Manage Tube Feeding Primary care physician: [employer]SM[employer]INEER Hospitalization Reason for admission: pna Condition: Critical Hospital course: This is a [id number] male with past medical history of HTN, Obesity Hypoventilation Syndrome, ETOH Dependence, Covid PUI and noncompliance with meds who came in via EMS due to respiratory distress and hypoxia. The patient was admitted with diagnosis of acute hypoxic respiratory failure, bilateral pneumonia, COVID PUI, obesity, EtOH dependence, septic shock, toxic metabolic encephalopathy, acute kidney injury secondary to ATN from sepsis and right po pliteal DVT. Patient was intubated in the ED and admitted to ICU. Patient had Covid PCR testing which was found to be negative. The patient was seen by pulmonary and infectious disease in consultation Hospital Course to Date: 03/15/21- Patient is on the vent and sedated. Off dopamine, maintaining MAP above 65. Titrate sedation for RASS goal 0 to -2. Continue hydration with NS @100ml/hr. Enteral nutrition initiated. 03/16/21- Patient remains on the vent, on fentanyl and Versed, RASS -4. Plan to weaned sedation off sedation for possible SAT. Patient was febrile overnight TMAX 103.1, WBCs wnl, on IV Abx, and ID is following. Will continue to trend CBC 03/17/21- Patient remains on the vent and sedated. Plan for SAT and CPAP trial today. Thrombocytopenia noted form this am lab, HIT panel ordered. D/w [facility] will hold heparin for now. Persistent low grade fevers overnight, will check BLE doppler to R/O DVT. 03/18/21- Patient is positive DVT in RLE, due to his thrombocytopenia, Eliquis was initiated for DVT tx. HIT panel is pending. Hypernatremia today FWF was [id number]. Will closely monitor electrolytes and renal function. 03/19/21- Patient is s/p extubation, on 3L CN, AAO and appropriate. Pass bedside swallow eveal, will advance diet as tolerated. Patient is stable for transfer to the floor. Orders placed to D/C mixon and CVC. 03/20/2021atient doing well from respiratory standpoint. Patient with 93% saturation on 4 L nasal cannula. Wean oxygen as tolerated. Continue per pulmonary recommendations. Continue IV antibiotics per ID recommendations. Patient currently on Eliquis for DVT. However, patient with thrombocytopenia. Await HIT panel. A.m. CBC not orderedstat CBC 03/21/2021. Patient is stable from respiratory standpoint and satting 95% on room air. Pulmonary feels patient can be discharged home. Patient will be discharged home with Eliquis for DVT. Antibiotics have been completed. Dedicated discharge time 32 minutes Disposition: 01 HOME / SELF CARE / HOMELESS Final Discharge Diagnosis (Prints w/discharge instructions): acute hypoxic respiratory failure, bilateral pneumonia, COVID PUI, obesity, EtOH dependence, septic shock, toxic metabolic encephalopathy, acute kidney injury secondary to ATN from sepsis and right popliteal DVT. Core Measure Documentation - Palliative Care Palliative Care/ Comfort Measures: Not Applicable - Core Measures Any of the following diagnoses?: none Exam - Constitutional Vitals: Temp Pulse Resp BP Pulse Ox 98.6 F 0 L 18 142/97 89 03/21/21 02:55 03/21/21 04:00 03/21/21 02:55 03/21/21 02:55 03/21/21 02:55 General appearance: Present: no acute distress, well-nourished - EENT Eyes: Present: PERRL ENT: hearing intact, clear oral mucosa - Neck Neck: Present: supple, normal ROM - Respiratory Respiratory effort: normal Respiratory: bilateral: CTA - Cardiovascular Heart Sounds: Present: S1 & S2. Absent: rub, click - Extremities Extremities: pulses symmetrical, No edema Peripheral Pulses: within normal limits - Abdominal General gastrointestinal: Present: soft, non-tender, non-distended, normal bowel sounds Male genitourinary: Present: normal - Integumentary Integumentary: Present: clear, warm, dry - Musculoskeletal Musculoskeletal: gait normal, strength equal bilaterally - Psychiatric Psychiatric: appropriate mood/affect, intact judgment & insight - Neurologic Neurologic: CNII-XII intact, moves all extremities Plan Activity: advance as tolerated Weight Bearing Status: Weight Bear as Tolerated Diet: regular Follow up with: PRIMARY CARE, [Primary Care Provider] - 3-5 Days KATHARINE FANG MD [Staff Physician] - 7 Days ASPEN LUA MD [Staff Physician] - 7 Days Prescriptions: Apixaban [Eliquis] 5 mg PO Q12HR #360 tablet Apixaban [Eliquis] 10 mg PO Q12HR #8 tablet
[2021-03-21 09:17] VITALS: BP 139/84
[2021-03-21] MEDS: APIXABAN 5 MG TAB PO SCH (10:01)
[2021-03-21] MEDS: FAMOTIDINE 20 MG TAB PO SCH (10:01)
[2021-03-21 13:41] LABS: Total Cells Counted 100
[2021-03-21 13:42] LABS: Anisocytosis 1+; Hypochromasia 1+; Platelet Estimate Consistent w Auto
[2021-03-21 13:49] LABS: Platelet Count 110 K/mm3 (140-440)
[2021-03-21 19:39] LABS: Heparin-Induced Platelet Antib Negative (Negative); Unfractionated Heparin Negative (Negative)
[2021-03-24] MEDS ORDERED: APIXABAN 5 MG TAB PO SCH (22:00)
== END 2021-03-21 14:00 | disposition home or self-care (01) | DRG 870 ==
LOC: ED 09:58 → CC1 12:04 → 4A 03-19 15:28
PROVIDERS: ADMIT Internal Medicine; ATTEND Hospitalist
PROC: 5A1955Z Respiratory Ventilation, Greater than 96 Consecutive Hours (ICD-10-PCS; principal; 2021-03-14)
PROC: 0BH17EZ Insertion of Endotracheal Airway into Trachea, Via Natural or Artificial Opening (ICD-10-PCS; 2021-03-14)
PROC: 05HM33Z Insertion of Infusion Device into Right Internal Jugular Vein, Percutaneous Approach (ICD-10-PCS; 2021-03-14)
PROC: B543ZZA Ultrasonography of Right Jugular Veins, Guidance (ICD-10-PCS; 2021-03-14)
PROC: 4A033R1 Measurement of Arterial Saturation, Peripheral, Percutaneous Approach (ICD-10-PCS; 2021-03-14)
PROC: 5A09357 Assistance with Respiratory Ventilation, Less than 24 Consecutive Hours, Continuous Positive Airway Pressure (ICD-10-PCS; 2021-03-14)
DX: A41.9 Sepsis, unspecified organism (principal); J96.01 Acute respiratory failure with hypoxia; J96.02 Acute respiratory failure with hypercapnia; J18.9 Pneumonia, unspecified organism; R65.21 Severe sepsis with septic shock; N17.0 Acute kidney failure with tubular necrosis; G92.8 Other toxic encephalopathy; E66.2 Morbid (severe) obesity with alveolar hypoventilation; E87.2 Acidosis; E87.0 Hyperosmolality and hypernatremia; I82.431 Acute embolism and thrombosis of right popliteal vein; F10.20 Alcohol dependence, uncomplicated; Z68.36 Body mass index [BMI] 36.0-36.9, adult; I10 Essential (primary) hypertension; Z83.3 Family history of diabetes mellitus; Z82.49 Family history of ischemic heart disease and other diseases of the circulatory system; D69.6 Thrombocytopenia, unspecified; Z20.822 Contact with and (suspected) exposure to COVID-19
CPT/HCPCS: 36415; 36600; 71045; 74018; 80048; 80053; 81001; 82140; 82565; 82728; 82803; 82805; 82947; 82962; 83615; 83735; 83880; 84100; 84145; 84484; 85007; 85025; 85027; 85379; 85610; 85730; 86022; 86140; 86850; 86900; 86901; 87040; 87070; 87205; 93005; 93970; 94002; 94003; 94644; 94760; G0378; J0330; J0456; J0692; J0696; J1265; J1644; J1940; J2060; J2250; J2920; J3010; J3370; J3411; J3475; J7030; J7040; U0003